=== PATIENT | male | born 1935 | race Caucasian/White ===

== ENCOUNTER 2024-03-11 09:58 | Inpatient (IN) ==
--- NOTE | 2024-03-11 10:40 | Emergency Department Note ---
Impression & Plan Pulmonary edema, Acute non-ST elevation myocardial infarction (NSTEMI), Atrial fibrillation with RVR ED Provider Note NAME: KHURRAM MERCHANT AGE: 88 SEX: M : 1935 ARRIVES VIA: Ambulance INFORMANT: Patient, ED PROVIDER(S): Tashi Lynn DO CHIEF COMPLAINT: Shortness of breath HPI: The patient is an 88-year-old male who presented to the emergency department for an evaluation of shortness of breath. The patient has been noticing shortness of breath and exertional shortness of breath. He is also noticed orthopnea. He noticed some swelling in his feet as well. The patient denies having any chest pain or fever. He denies having any productive cough. The patient has not been seen by his family doctor for the symptoms. He has no history of irregular heartbeat or congestive heart failure. ROS: See above HPI for pertinent positives & negatives. A total of 10 systems reviewed and were otherwise negative. PAST MEDICAL HISTORY: See Below PAST SURGICAL HISTORY: See Below FAMILY HISTORY: See Below SOCIAL HISTORY: See Below HOME MEDICATIONS: See Below ALLERGIES: See Below VITALS: See Below PHYSICAL EXAMINATION: GENERAL: Patient is awake alert in no acute distress patient is resting comfortably and showing no signs of anxiety EYES: The conjunctivae are clear. The pupils are round and reactive. EARS, NOSE, MOUTH AND THROAT: The nose is without any evidence of any deformity. NECK: The neck is nontender and supple. RESPIRATORY: Diminished breath sounds noted at both bases. There were rales at both lower lung lake. CARDIOVASCULAR: Irregular heart sounds were noted to auscultation. There is no definite murmur. GASTROINTESTINAL: The abdomen is soft. Abdomen is nontender. MUSCULOSKELETAL/EXTREMITIES: There is no evidence of gross deformity full range of motion is noted in the hips and shoulders. SKIN: Skin is warm and dry. Pedal edema was noted bilaterally. NEUROLOGIC: Patient is awake alert and oriented x3 MEDICAL DECISION MAKING: The patient is an 88-year-old male who presented to the emergency department for an evaluation of shortness of breath. The patient describes orthopnea as well as lower extremity swelling. The patient's history and physical exam would be consistent with pulmonary edema. The patient was found to be in atrial fibrillation which she states is a new finding for him. He had nonspecific ST segment abnormalities and elevated troponin. I would wonder if the patient is in pulmonary edema secondary to the dysrhythmia as well as the NSTEMI. I discussed the patient's laboratory and radiographic studies with him. I discussed his condition with the on-call [facility] Hospitalist. They have agreed to evaluate the patient in the emergency department for further management and disposition. The patient was treated with Lasix and aspirin in the emergency department. Triage Nursing notes reviewed. Prior medical records reviewed Vital Signs: reviewed and remarkable for no significant abnormalities Differential diagnosis: Reactive airway disease, pneumonia, pneumothorax, COPD, CHF, infections, cardiac ischemia, pulmonary embolism, musculoskeletal, gastrointestinal, as well as other pathologies. ER treatment provided: See below Diagnostics interpreted by me: ECG: EKG was obtained in the emergency department. My interpretation is atrial fibrillation at [address] depressions were noted in the inferior and lateral leads. No previous tracing was available. Cardiac Monitoring: An order was placed for continuous cardiac monitoring. The monitor shows a rate of 97 bpm with sinus rhythm. Laboratory studies: As stated above and show below. Imaging studies: See below. Radiographic imaging was reviewed by myself Consultation(s): I discussed this case with Dr. Encarnacion [facility] ED COURSE: Procedures: none Critical Care: I have personally spent greater than 35 minutes of critical care time in the direct management of this patient. This includes bedside care, interpretation of diagnostic studies, and testing, discussion with consultants, patient, and family members, and other required patient management activities. This 35 minutes is in excess of all separately billable procedures. 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) Medical History Pain and swelling of left knee Vision problem Surgical History S/P adenoidectomy 1944 S/P tonsillectomy 1944 Family History Father Cardiac disorder Hypertension Myocardial infarction, Onset Age: 69 Brother Cardiac disorder Hypertension Denies family history of Ovarian cancer Prostate cancer Breast cancer Lung cancer Colorectal cancer Social History Smoking Status: Former smoker Tobacco Type: Cigarettes and Cigars Hx Alcohol Use: No Hx Substance Use: No Preferred Language: Serbian Communication Ability: Effective Visual Impairment: No Limitations Hearing Ability: Hard of Hearing Beliefs That Will Affect Care: None marital status: / Current Living Situation: Alone current occupational status: retired Feels Safe at Home: Yes Childhood Exposure to Second-Hand Smoke: No Diet: regular Diet Comment: regular caffeine: Yes during the past year weight has: remained stable Dental Care, Regularly: Yes Physical Activity Frequency: Daily Physical Activity Frequency Comment: walk, outside work Seatbelt Use: always Sunscreen Use: No Allergies Allergies Allergy/AdvReac Type Severity Reaction Status Date / Time Penicillins AdvReac Hives Verified 03/11/24 12:32 Home Meds Home Medications Medication Instructions Recorded Confirmed mecobalamin (vitamin B12) 1,000 1,000 mcg PO DAILY 12/09/23 03/11/24 mcg chewable tablet sertraline 25 mg tablet 0 mg PO DAILY 03/11/24 03/11/24 telmisartan 20 mg tablet 0 mg PO DAILY 03/11/24 03/11/24 Previous Rx's Medication Instructions Recorded vitamin E (dl, acetate) 450 mg 1,000 units PO 3XWK #30 caps 01/12/20 (1,000 unit) capsule metoprolol tartrate 50 mg tablet 75 mg (1.5 x 50 mg) PO DAILY #135 01/27/24 tabs pantoprazole 40 mg tablet,delayed 40 mg PO DAILY #90 tabs 02/02/24 release terazosin 5 mg capsule 5 mg PO DAILY #90 caps 02/16/24 Results & Data (ED) Vital Signs Vital Signs - 24 hr 03/11/24 10:00 03/11/24 10:08 03/11/24 10:08 Temperature 36.8 C Temperature Source Oral Pulse Rate 108 H Pulse Rate [Apical] Respiratory Rate 19 Respiratory Effort / Characteristics Non-Labored Spontaneous Short of Breath Non-Labored Spontaneous Short of Breath Respiratory Depth Normal Normal Respiratory Pattern Regular Regular Blood Pressure 122/85 Blood Pressure [Right Arm] Blood Pressure Mean 97 Blood Pressure Mean [Right Arm] Blood Pressure Position Semi-fowlers Blood Pressure Position [Right Arm] Pulse Oximetry 94 Oxygen Delivery Method Room Air Room Air Room Air Sepsis Recent Fever Within 48 Hours No Sepsis New/Unexplained Change in Mental Status No Sepsis Action Taken by Nursing No Action Required 03/11/24 10:08 03/11/24 10:18 03/11/24 10:41 Temperature Temperature Source Pulse Rate 108 H 119 H Pulse Rate [Apical] 106 H Respiratory Rate 18 24 Respiratory Effort / Characteristics Non-Labored Spontaneous Short of Breath Respiratory Depth Normal Respiratory Pattern Regular Blood Pressure Blood Pressure [Right Arm] Blood Pressure Mean Blood Pressure Mean [Right Arm] Blood Pressure Position Blood Pressure Position [Right Arm] Pulse Oximetry 91 Oxygen Delivery Method Room Air Room Air Sepsis Recent Fever Within 48 Hours Sepsis New/Unexplained Change in Mental Status Sepsis Action Taken by Nursing 03/11/24 12:04 Temperature Temperature Source Pulse Rate Pulse Rate [Apical] 97 H Respiratory Rate 20 Respiratory Effort / Characteristics Non-Labored Short of Breath Respiratory Depth Normal Respiratory Pattern Regular Blood Pressure Blood Pressure [Right Arm] 120/85 Blood Pressure Mean Blood Pressure Mean [Right Arm] 96 Blood Pressure Position Blood Pressure Position [Right Arm] Semi-fowlers Pulse Oximetry 92 Oxygen Delivery Method Room Air Sepsis Recent Fever Within 48 Hours Sepsis New/Unexplained Change in Mental Status Sepsis Action Taken by Snf Medications Current Medication List: was personally reviewed by me Laboratory Data Attestation: I reviewed the patient's lab results. 03/11/24 10:08 03/11/24 10:08 Lab Results 03/11/24 03/11/24 03/11/24 Range/Units 10:08 10:32 10:38 WBC 12.03 H (4.8-10.8) K/ul RBC 3.65 L (4.70-6.10) M/uL Hgb 11.7 L (14.0-18.0) g/dl Hct 35.7 L (42.0-52.0) % MCV 97.8 (80.0-100.0) fL MCH 32.1 (25.0-34.0) pg MCHC 32.8 (32.0-36.0) g/dL RDW Std Deviation 47.2 H (36.4-46.3) fL RDW Coeff of Kahlil 13.2 (11.5-14.5) % Plt Count 177 (130-400) K/uL MPV 11.8 (9.4-12.4) fL Immature Gran % (Auto) 0.6 % Neut % (Auto) 77.5 % Lymph % (Auto) 11.1 % Menard % (Auto) 9.5 % Eos % (Auto) 0.6 % Baso % (Auto) 0.7 % Neut # (Auto) 9.32 H (1.40-6.50) K/uL Lymph # (Auto) 1.34 (1.20-3.40) K/uL Menard # (Auto) 1.14 H (0.11-0.59) K/uL Eos # (Auto) 0.07 (0.00-0.50) K/uL Baso # (Auto) 0.09 (0.00-0.20) K/uL Immature Gran # (Auto) 0.07 (0.01-0.20) K/uL PT 12.3 H (9.0-12.0) Seconds INR 1.1 (0.9-1.1) APTT 30 (21-31) Seconds PTT Ratio 1.1 Sodium 134 L (136-145) mmol/L Potassium 4.2 (3.5-5.1) mmol/L Chloride 104 (98-107) mmol/L Carbon Dioxide 21 (21-32) mmol/L Anion Gap 9 (3-11) BUN 28 H (6-23) mg/dl Creatinine 1.71 H (0.6-1.4) mg/dl Est Cr Clr Drug Dosing 34.9 ml/min Est GFR ( Amer) 40.8 ml/min Est GFR (Non-Af Amer) 35.2 ml/min BUN/Creatinine Ratio 16.4 (10-20) Glucose 147 H (70-99(Fasting)) mg/dl Calcium 8.7 (8.6-10.3) mg/dl Magnesium 1.9 (1.7-2.4) mg/dl Total Bilirubin 0.8 (0.2-1.0) mg/dl AST 16 (13-39) U/L ALT 10 (7-52) U/L Alkaline Phosphatase 53 (34-104) U/L Troponin I High Sens 806.2 H* (0-20) pg/ml B-Natriuretic Peptide 827 H (0-100) pg/ml Total Protein 6.7 (6.0-8.3) gm/dl Albumin 3.4 (3.4-5.0) gm/dl Globulin 3.3 (2.5-4.0) gm/dl Albumin/Globulin Ratio 1.0 (0.9-2) TSH 2.766 (0.300-4.500) uIu/ml Urine Color Yellow Urine Appearance Clear (Clear) Urine pH 5.0 (4.5-7.5) Ur Specific [place] 1.019 (1.000-1.030) Urine Protein Trace H (Negative) Urine Glucose (UA) Negative (Negative) Urine Ketones Trace H (Negative) Urine Blood Negative (Negative) Urine Nitrite Negative (Negative) Urine Bilirubin Negative (Negative) Urine Urobilinogen Negative (Negative) Ur Leukocyte Esterase Trace H (Negative) Urine WBC (Auto) 0-5 (0-5) /hpf Urine RBC (Auto) 0-2 (0-2) /hpf U Hyaline Cast (Auto) 0-2 (0-2) /lpf U Epithel Cells (Auto) 0-2 (0-2) /hpf Urine Bacteria (Auto) None Seen (None Seen) SARS-CoV-2 (PCR) NEGATIVE (Negative) 03/11/24 Range/Units 12:35 WBC (4.8-10.8) K/ul RBC (4.70-6.10) M/uL Hgb (14.0-18.0) g/dl Hct (42.0-52.0) % MCV (80.0-100.0) fL MCH (25.0-34.0) pg MCHC (32.0-36.0) g/dL RDW Std Deviation (36.4-46.3) fL RDW Coeff of Kahlil (11.5-14.5) % Plt Count (130-400) K/uL MPV (9.4-12.4) fL Immature Gran % (Auto) % Neut % (Auto) % Lymph % (Auto) % Menard % (Auto) % Eos % (Auto) % Baso % (Auto) % Neut # (Auto) (1.40-6.50) K/uL Lymph # (Auto) (1.20-3.40) K/uL [place]ard # (Auto) (0.11-0.59) K/uL Eos # (Auto) (0.00-0.50) K/uL Baso # (Auto) (0.00-0.20) K/uL Immature Gran # (Auto) (0.01-0.20) K/uL PT (9.0-12.0) Seconds INR (0.9-1.1) APTT (21-31) Seconds PTT Ratio Sodium (136-145) mmol/L Potassium (3.5-5.1) mmol/L Chloride (98-107) mmol/L Carbon Dioxide (21-32) mmol/L Anion Gap (3-11) BUN (6-23) mg/dl Creatinine (0.6-1.4) mg/dl Est Cr Clr Drug Dosing ml/min Est GFR ( Amer) ml/min Est GFR (Non-Af Amer) ml/min BUN/Creatinine Ratio (10-20) Glucose (70-99(Fasting)) mg/dl Calcium (8.6-10.3) mg/dl Magnesium (1.7-2.4) mg/dl Total Bilirubin (0.2-1.0) mg/dl AST (13-39) U/L ALT (7-52) U/L Alkaline Phosphatase (34-104) U/L Troponin I High Sens 770.2 H* (0-20) pg/ml B-Natriuretic Peptide (0-100) pg/ml Total Protein (6.0-8.3) gm/dl Albumin (3.4-5.0) gm/dl Globulin (2.5-4.0) gm/dl Albumin/Globulin Ratio (0.9-2) TSH (0.300-4.500) uIu/ml Urine Color Urine Appearance (Clear) Urine pH (4.5-7.5) Ur Specific [place] (1.000-1.030) Urine Protein (Negative) Urine Glucose (UA) (Negative) Urine Ketones (Negative) Urine Blood (Negative) Urine Nitrite (Negative) Urine Bilirubin (Negative) Urine Urobilinogen (Negative) Ur Leukocyte Esterase (Negative) Urine WBC (Auto) (0-5) /hpf Urine RBC (Auto) (0-2) /hpf U Hyaline Cast (Auto) (0-2) /lpf U Epithel Cells (Auto) (0-2) /hpf Urine Bacteria (Auto) (None Seen) SARS-CoV-2 (PCR) (Negative) Administered Medications Magnesium Sulfate/Dextrose (Magnesium Sulfate / D5w) 1 gm in 100 mls @ 100 mls/hr IV NOW STA Stop: 03/11/24 13:52 Last Admin: 03/11/24 13:34 Dose: 100 mls/hr Documented By: HALEIGH Discontinued Medications Aspirin (Aspirin Chew 324 Mg) 324 mg PO NOW STA Stop: 03/11/24 11:49 Last Admin: 03/11/24 12:11 Dose: 324 mg Documented By: HALEIGH Furosemide (Furosemide 40 Mg/4 Ml Vial) 40 mg IV ONE ONE Stop: 03/11/24 11:49 Last Admin: 03/11/24 12:11 Dose: 40 mg Documented By: HALEIGH Imaging Data Attestation: I personally reviewed and interpreted this imaging study as follows: My Impression: 1 view chest x-ray was obtained in the emergency department. My interpretation is pleural effusion with pulmonary edema, final report below. Radiologist's Impression: Chest X-Ray 03/11/24 10:29 XR chest 1V portable CLINICAL HISTORY: Dyspnea TECHNIQUE: Single frontal radiograph of the chest was obtained. Comparison: None available at the time of this dictation. FINDINGS: No lines and tubes are seen. Cardiac silhouette is partially obscured. Calcified aorta is seen. Right perihilar and right lower lung densities are seen. There is prominent pulmonary vasculature. Likely moderate right and possible small left pleural effusion. IMPRESSION: 1. Airspace opacities in the right perihilar and lower lungs. This may represent atelectasis, pneumonia, and/or aspiration. 2. Pulmonary vascular congestion. 3. Moderate right and small left pleural effusions. ACT 112: Negative or not required by law. Electronically signed by: Dave Sorto M.D. 03/11/2024 10:58 AM Discharge Plan Visit Data Chief Complaint: Shortness of Breath/Dyspnea Stated Complaint: SOB ED Provider: Tashi Lynn Discharge Problem: Pulmonary edema, Acute non-ST elevation myocardial infarction (NSTEMI), Atrial fibrillation with RVR Patient Disposition: Being Evaluated by Hospitalist Forms Stand Alone Forms: My [facility] Prescriptions Prescriptions: No Action metoprolol tartrate 50 mg tablet 75 mg PO DAILY Qty: 135 3RF Rx Instructions: TAKE 1/2 TAB in a.m. AND 1 TAB in p.m. pantoprazole 40 mg tablet,delayed release (DR/EC) 40 mg PO DAILY Qty: 90 1RF terazosin 5 mg capsule 5 mg PO DAILY Qty: 90 3RF vitamin E (dl, acetate) 1,000 unit capsule 1,000 units PO 3XWK Qty: 30 0RF Rx Instructions: Unable to verify OTC meds at this date/time. mecobalamin (vitamin B12) 1,000 mcg tablet,chewable 1,000 mcg PO DAILY Rx Instructions: Unable to verify OTC meds at this date/time. sertraline 25 mg tablet 0 mg PO DAILY Rx Instructions: Unable to verify w/ pt at this date/time. Last filled 12/2023 x30 day supply. Original Directions: 25mg by mouth once daily telmisartan 20 mg tablet 0 mg PO DAILY Rx Instructions: Unable to verify w/ pt at this date/time. Last filled 12/2023 x30 day supply. Original Directions: 20mg by mouth once daily Referrals Referrals: Gabino Weaver CRNP [Primary Care Provider] - Discharge Problem: Pulmonary edema Qualifiers: Chronicity: acute Qualified Code(s): J81.0 - Acute pulmonary edema
--- NOTE | 2024-03-11 10:59 | XRay Report ---
XR chest 1V portable CLINICAL HISTORY: Dyspnea TECHNIQUE: Single frontal radiograph of the chest was obtained. Comparison: None available at the time of this dictation. FINDINGS: No lines and tubes are seen. Cardiac silhouette is partially obscured. Calcified aorta is seen. Right perihilar and right lower lung densities are seen. There is prominent pulmonary vasculature. Likely moderate right and possible small left pleural effusion. IMPRESSION: 1. Airspace opacities in the right perihilar and lower lungs. This may represent atelectasis, pneumo ann, and/or aspiration. 2. Pulmonary vascular congestion. 3. Moderate right and small left pleural effusions. ACT 112: Negative or not required by law. Electronically signed by: Dave Sorto M.D. 03/11/2024 10:58 AM
[2024-03-11 11:01] LABS: Appearance Urine Clear (Clear); Bacteria Urine Automated None Seen (None Seen); Bilirubin Urine Negative (Negative); Blood Urine Negative (Negative); Cast Urine Automated 0-2 /lpf (0-2); Color Urine Yellow; Epithelial Cell Urine Auto 0-2 /hpf (0-2); Glucose Urine UA Negative (Negative); Ketones Urine Trace (Negative); Leukocyte Esterase Urine Trace (Negative); Nitrite Urine Negative (Negative); Protein Urine Trace (Negative); RBC Urine Automated 0-2 /hpf (0-2); Specific Gravity Urine 1.019 (1.000-1.030); Urobilinogen Urine Negative (Negative); WBC Urine Automated 0-5 /hpf (0-5)
[2024-03-11 11:12] LABS: Basophils # (auto) 0.09 K/uL (0.00-0.20); Basophils % (auto) 0.7 %; Eosinophils # (auto) 0.07 K/uL (0.00-0.50); Eosinophils % (auto) 0.6 %; Hematocrit (blood only) 35.7 % (42.0-52.0); Hemoglobin 11.7 g/dl (14.0-18.0); Immature Granulocytes # (auto) 0.07 K/uL (0.01-0.20); Immature Granulocytes % (auto) 0.6 %; Lymphocytes # (auto) 1.34 K/uL (1.20-3.40); Lymphocytes % (auto) 11.1 %; Mean Corpuscular Hemoglobin 32.1 pg (25.0-34.0); Mean Corpuscular Hgb Conc 32.8 g/dL (32.0-36.0); Mean Corpuscular Volume 97.8 fL (80.0-100.0); Mean Platelet Volume 11.8 fL (9.4-12.4); Monocytes # (auto) 1.14 K/uL (0.11-0.59); Monocytes % (auto) 9.5 %; Neutrophils # (auto) 9.32 K/uL (1.40-6.50); Neutrophils % (auto) 77.5 %; Platelet Count 177 K/uL (130-400); RDW Coefficient of Variation 13.2 % (11.5-14.5); RDW Standard Deviation 47.2 fL (36.4-46.3); Red Blood Count 3.65 M/uL (4.70-6.10); White Blood Count 12.03 K/ul (4.8-10.8)
[2024-03-11 11:31] LABS: Albumin Level 3.4 gm/dl (3.4-5.0); BUN Creatinine Ratio 16.4 (10-20); Bilirubin,Total 0.8 mg/dl (0.2-1.0); Calcium 8.7 mg/dl (8.6-10.3); Creatinine Clr Calc Pharmacy 34.9 ml/min; Est GFR (African American) 40.8 ml/min; Est GFR (Non-African American) 35.2 ml/min; Globulin 3.3 gm/dl (2.5-4.0); Magnesium 1.9 mg/dl (1.7-2.4); Potassium 4.2 mmol/L (3.5-5.1); Total Protein 6.7 gm/dl (6.0-8.3)
[2024-03-11 11:41] LABS: Troponin I High Sensitivity 806.2 pg/ml (0-20)
[2024-03-11 11:43] LABS: INR 1.1 (0.9-1.1); Partial Thromboplastin Ratio 1.1; Partial Thromboplastin Time 30 Seconds (21-31); Prothrombin Time 12.3 Seconds (9.0-12.0)
[2024-03-11 11:46] LABS: Thyroid Stimulating Hormone 2.766 uIu/ml (0.300-4.500)
[2024-03-11] MEDS: ASPIRIN CHEW 324 MG PO STA (12:11)
[2024-03-11] MEDS: FUROSEMIDE 40 MG/4 ML VIAL IV ONE (12:11)
--- NOTE | 2024-03-11 12:13 | History & Physical Report ---
Date of Service March 11, 2024 Assessment & Plan (1) Atrial fibrillation with RVR: Plan: New onset Increase metoprolol tatrate to 100mg PO BID with goal of switching to succinate once rate better controlled TSH WNL Aim K > 4, Mg > 2 TTE Anticoagulation with IV heparin low dose with bolus in case of need for cardiac catheterization (2) Acute heart failure: Plan: with unknown ejection fraction TTE ordered Lasix 40mg IV daily Strict I&Os Daily weight Fluid restricted diet (3) BPH with obstruction/lower urinary tract symptoms: Plan: PVR 82ml on bladder scan Continue terazosin (4) HTN (hypertension): Plan: Continue telmisartan and metoprolol Monitor BP with addition of Lasix (5) Anxiety and depression: Plan: Continue sertraline Plan VTE Prophyalxis - IV heparin Diet - low Na, heart healthy, fluid restricted Disposition - admit to PCU Admission and Anticipated Discharge Date Admission Date: March 11, 2024 History of Present Illness Chief Complaint: Shortness of breath Primary Care Provider: FLORI Pérez Richy Ramirez is an 88 year old male who presents to the ER with shortness of breath, dizziness and orthopnea. Symptoms started 2 weeks ago when trying to take care of yard work and he got into house. Took BP and it was fine but noticed his pulse was around 122, taken due to feeling more tired than usual. Last couple of days symptoms have been much worse. Each day dizziness (lightheadedness) and tiredness lasting longer. No chest pain, abdominal pain, no constipation or diarrhea. No nausea, vomiting, sore throat, nasal congestion, fever, chills or urinary symptoms. Last week cough (no productive). No choking or coughing after eating. Appetite and sleeping problem last couple of days. Nothing taste good. Took all his normal medications this morning. Allergies Allergy/AdvReac Type Severity Reaction Status Date / Time Penicillins AdvReac Hives Verified 03/11/24 12:32 Home Medications Medication Instructions Recorded Confirmed Type vitamin E (dl, acetate) 450 mg 1,000 units PO 3XWK #30 caps 01/12/20 03/11/24 Rx (1,000 unit) capsule mecobalamin (vitamin B12) 1,000 1,000 mcg PO DAILY 12/09/23 03/11/24 History mcg chewable tablet metoprolol tartrate 50 mg tablet 75 mg (1.5 x 50 mg) PO DAILY #135 01/27/24 03/11/24 Rx tabs pantoprazole 40 mg tablet,delayed 40 mg PO DAILY #90 tabs 02/02/24 03/11/24 Rx release terazosin 5 mg capsule 5 mg PO DAILY #90 caps 02/16/24 03/11/24 Rx sertraline 25 mg tablet 0 mg PO DAILY 03/11/24 03/11/24 History telmisartan 20 mg tablet 0 mg PO DAILY 03/11/24 03/11/24 History 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) Medical History Pain and swelling of left knee Vision problem Surgical History S/P adenoidectomy 1944 S/P tonsillectomy 1944 Family History Father Cardiac disorder Hypertension Myocardial infarction, Onset Age: 69 Brother Cardiac disorder Hypertension Denies family history of Ovarian cancer Prostate cancer Breast cancer Lung cancer Colorectal cancer Social History Smoking Status: Former smoker Tobacco Type: Cigarettes and Cigars Smoking End Date: 2007; Second Hand Exposure: No; Do You Dip or Chew Tobacco: No; Tobacco Cessation Education Requested by Patient: No Hx Alcohol Use: No Hx Substance Use: No Preferred Language: Yi Communication Ability: Effective Visual Impairment: No Limitations Hearing Ability: Hard of Hearing Tyre Retreader Required: No Beliefs That Will Affect Care: None marital status: / Current Living Situation: Alone Current Living Situation Comment: Private Home Alone current occupational status: retired Other Information That Helps Us Care for You: No Feels Safe at Home: Yes Safety Concerns: Feels Safe At This Time Childhood Exposure to Second-Hand Smoke: No Diet: regular Diet Comment: regular caffeine: Yes during the past year weight has: remained stable Dental Care, Regularly: Yes Physical Activity Frequency: Daily Physical Activity Frequency Comment: walk, outside work Seatbelt Use: always Sunscreen Use: No Assistive Devices: Glasses and Hearing Aid - Left Review of Systems Review of Systems: All systems reviewed & are unremarkable except as noted in HPI & below Physical Exam Constitutional: WD/WN, vitals as above ENMT: external ear and nose normal, oropharynx normal Respiratory: normal respiratory effort; no respiratory distress Auscultation: + crackles (bibasal); breath sounds present, no diminished lung sounds, no rales, no rhonchi and no wheezes Cardiovascular: Rate/Rhythm: + tachycardic and + irregularly irregular Heart Sounds: no murmur Extremities: normal capillary refill and + pedal edema; no calf tenderness Gastrointestinal (Abdomen): normal bowel sounds, soft, nontender, no hepatosplenomegaly Musculoskeletal: no cyanosis or clubbing, extremities motor strength 5/5 Skin: no rashes, warm and dry Neurologic: moves all extremities and awake; not confused Psychiatric: A+Ox3, euthymic affect Results & Data Results & Data Vital Signs (Past 12 Hours) Vital Signs Temp Pulse Pulse Resp BP BP Pulse Ox 03/11/24 12:04 97 H 20 120/85 92 03/11/24 10:41 119 H 24 91 03/11/24 10:18 108 H 03/11/24 10:08 106 H 18 03/11/24 10:08 03/11/24 10:08 03/11/24 10:00 36.8 C 108 H 19 122/85 94 O2 Del Method 03/11/24 12:04 Room Air 03/11/24 10:41 Room Air 03/11/24 10:18 03/11/24 10:08 Room Air 03/11/24 10:08 Room Air 03/11/24 10:08 Room Air 03/11/24 10:00 Room Air Laboratory Results Abnormal lab results 06/13/24 06/13/24 Range/Units 10:08 10:38 WBC 12.03 H (4.8-10.8) K/ul RBC 3.65 L (4.70-6.10) M/uL Hgb 11.7 L (14.0-18.0) g/dl Hct 35.7 L (42.0-52.0) % RDW Std Deviation 47.2 H (36.4-46.3) fL Neut # (Auto) 9.32 H (1.40-6.50) K/uL Hutchinson # (Auto) 1.14 H (0.11-0.59) K/uL PT 12.3 H (9.0-12.0) Seconds Sodium 134 L (136-145) mmol/L BUN 28 H (6-23) mg/dl Creatinine 1.71 H (0.6-1.4) mg/dl Glucose 147 H (70-99(Fasting)) mg/dl Troponin I High Sens 806.2 H* (0-20) pg/ml B-Natriuretic Peptide 827 H (0-100) pg/ml Urine Protein Trace H (Negative) Urine Ketones Trace H (Negative) Ur Leukocyte Esterase Trace H (Negative) Diagnostic Findings XR chest 1V portable CLINICAL HISTORY: Dyspnea TECHNIQUE: Single frontal radiograph of the chest was obtained. Comparison: None available at the time of this dictation. FINDINGS: No lines and tubes are seen. Cardiac silhouette is partially obscured. Calcified aorta is seen. Right perihilar and right lower lung densities are seen. There is prominent pulmonary vasculature. Likely moderate right and possible small left pleural effusion. IMPRESSION: 1. Airspace opacities in the right perihilar and lower lungs. This may represent atelectasis, pneumonia, and/or aspiration. 2. Pulmonary vascular congestion. 3. Moderate right and small left pleural effusions. Medications Administered ER Medications Given: Aspirin 324mg PO Furosemide 40mg IV ECG Rate (beats per minute): 116 Rhythm: atrial fibrillation Findings: + nonspecific-ST abn Comparison ECG Date: no prior available Code Status & VTE Plan Code Status Full VTE Prophylaxis Plan VTE Prophylaxis will be ordered: Yes PG Care Time/CCT Total # of Minutes Spent Total Time Spent with Patient: Total time spent is greater than 50% in coordination of care (as documented) at patient's floor/unit and/or counseling patient: Coding Level of Care Code 03756 INT INP/OBS CARE MIN Diagnoses Atrial fibrillation with RVR I48.91 Acute heart failure I50.9 BPH with obstruction/lower urinary tract symptoms N40.1; N13.8 HTN (hypertension) I10 Anxiety and depression F41.9; F32.A
[2024-03-11] MEDS ORDERED: Heparin IV Adult Wt-Based Low-Dose w/ INITIAL Bolus Protocol IV STA (12:50)
[2024-03-11] MEDS ORDERED: HEPARIN SOD (PORCINE) 1000 UNIT/ML IV ONE (13:05)
[2024-03-11] MEDS ORDERED: HEPARIN SODIUM/DEXTROSE 25,000 UNITS/500 ML BAG IV SCH (13:15)
[2024-03-11] MEDS: MAGNESIUM SULFATE / D5W 1 GM/100 ML BAG IV STA (13:34)
[2024-03-11] MEDS: HEPARIN SOD (PORCINE) 1000 UNIT/ML IV ONE (14:18)
[2024-03-11] MEDS: HEPARIN SODIUM/DEXTROSE 25,000 UNITS/500 ML BAG IV SCH (14:19)
[2024-03-11] MEDS: Heparin IV Adult Wt-Based Low-Dose w/ INITIAL Bolus Protocol IV STA (14:19)
[2024-03-11] MEDS ORDERED: ACETAMINOPHEN 325 MG TAB PO PRN (14:28)
[2024-03-11 15:13] LABS: Influenza A virus by PCR Negative (Neg); Influenza B virus by PCR Negative (Neg); RSV by PCR Negative (Neg); SARS CoV2 RNA(COVID-19) Ceph NEGATIVE (Negative)
--- NOTE | 2024-03-11 17:44 | Electrocardiogram Report ---
Test Reason : Blood Pressure : / mmHG Vent. Rate : 116 BPM Atrial Rate : 000 BPM P-R Int : 000 ms QRS Dur : 096 ms QT Int : 276 ms P-R-T Axes : 000 -09 124 degrees QTc Int : 383 ms Sinus rhythm with frequent and consecutive atrial ectopy Low voltage QRS Nonspecific ST and T wave abnormality Abnormal ECG No previous ECGs available Reconfirmed by Elijah Guaman ([id number]) on 03/13/2024 5:58:05 PM Referred By: Gabino Weaver Confirmed By:Carl Guaman
--- NOTE | 2024-03-11 18:04 | XCELERA ---
[id number]
[2024-03-11 21:07] LABS: ANTI-Xa, UFH(UnfractionatedHep 0.21 IU/ml (0.3-0.7)
[2024-03-12 03:12] LABS: Basophils # (auto) 0.09 K/uL (0.00-0.20); Basophils % (auto) 0.9 %; Eosinophils # (auto) 0.26 K/uL (0.00-0.50); Eosinophils % (auto) 2.5 %; Hematocrit (blood only) 34.6 % (42.0-52.0); Hemoglobin 11.5 g/dl (14.0-18.0); Immature Granulocytes # (auto) 0.05 K/uL (0.01-0.20); Immature Granulocytes % (auto) 0.5 %; Lymphocytes % (auto) 15.2 %; Mean Corpuscular Hemoglobin 32.1 pg (25.0-34.0); Mean Corpuscular Hgb Conc 33.2 g/dL (32.0-36.0); Mean Corpuscular Volume 96.6 fL (80.0-100.0); Mean Platelet Volume 11.7 fL (9.4-12.4); Monocytes % (auto) 9.5 %; Neutrophils # (auto) 7.53 K/uL (1.40-6.50); Neutrophils % (auto) 71.4 %; Platelet Count 172 K/uL (130-400); RDW Coefficient of Variation 13.2 % (11.5-14.5); RDW Standard Deviation 46.6 fL (36.4-46.3); Red Blood Count 3.58 M/uL (4.70-6.10); White Blood Count 10.53 K/ul (4.8-10.8)
[2024-03-12 03:23] LABS: BUN Creatinine Ratio 16.8 (10-20); Calcium 8.6 mg/dl (8.6-10.3); Chol HDL Ratio 2.9 (0-5); Creatinine Clr Calc Pharmacy 31.4 ml/min; Est GFR (African American) 37.4 ml/min; Est GFR (Non-African American) 32.2 ml/min; Potassium 4.1 mmol/L (3.5-5.1)
[2024-03-12 03:33] LABS: ANTI-Xa, UFH(UnfractionatedHep 0.22 IU/ml (0.3-0.7)
[2024-03-12 07:01] LABS: Estimated Average Glucose 128 mg/dl; Hemoglobin A1C 6.1 % (4.5-5.6)
[2024-03-12] MEDS ORDERED: METOPROLOL TARTRATE 100 MG TAB PO SCH (09:00)
[2024-03-12] MEDS: PANTOprazole 40 MG TAB PO SCH (09:01)
[2024-03-12] MEDS: CYANOCOBALAMIN (B-12) 500 MCG TABLET PO SCH (09:01)
[2024-03-12] MEDS: METOPROLOL SUCC 50MG EXT REL TAB PO SCH (09:01)
[2024-03-12] MEDS: TERAZOSIN HCL 5 MG CAP PO SCH (09:02)
[2024-03-12] MEDS: LOSARTAN POTASSIUM 25 MG TAB PO SCH (09:02)
[2024-03-12] MEDS: SERTRALINE HCL 50 MG TABLET PO SCH (09:02)
[2024-03-12] MEDS: FUROSEMIDE 40 MG/4 ML VIAL IV SCH (09:17)
[2024-03-12] MEDS: ASPIRIN 81 MG ECTAB PO SCH (09:17)
[2024-03-12 10:29] LABS: ANTI-Xa, UFH(UnfractionatedHep 0.25 IU/ml (0.3-0.7)
--- NOTE | 2024-03-12 13:54 | Hospitalist Progress Note ---
Date of Service March 12, 2024 Assessment & Plan (1) Atrial fibrillation with RVR: Plan: New onset Increase metoprolol tatrate to 100mg PO BID with goal of switching to succinate once rate better controlled TSH WNL Aim K > 4, Mg > 2 TTE Anticoagulation with IV heparin low dose with bolus in case of need for cardiac catheterization (2) Acute heart failure: Plan: with unknown ejection fraction TTE ordered Lasix 20 mg IV daily Strict I&Os Daily weight Fluid restricted diet (3) BPH with obstruction/lower urinary tract symptoms: Plan: PVR 82ml on bladder scan Continue terazosin (4) HTN (hypertension): Plan: Continue telmisartan and metoprolol Monitor BP with addition of Lasix (5) Anxiety and depression: Plan: Continue sertraline Plan VTE Prophyalxis - IV heparin Diet - low Na, heart healthy, fluid restricted Disposition - admit to PCU Admission and Anticipated Discharge Date Admission Date: March 11, 2024 Subjective reports feeling better, no chest pain, card cath cancelled Review of Systems Review of Systems: All systems reviewed & are unremarkable except as noted in Subjective Physical Exam Physical Exam: head atraumatic neck supple chest decreased breath sounds b/l heart irregularly irregular abdomen soft, nt, nd, bs present extremities swelling pedal edema Results & Data Results & Data Vital Signs (Past 12 Hours) Vital Signs Temp Pulse Pulse Resp BP Pulse Ox O2 Del Method 03/12/24 12:04 36.6 C 66 18 100/66 94 Room Air 03/12/24 10:45 121/66 03/12/24 09:17 79 03/12/24 09:17 Room Air 03/12/24 07:50 36.5 C 87 22 120/80 92 Room Air 03/12/24 02:51 36.6 C 97 H 18 119/79 93 Room Air PG Care Time/CCT Total # of Minutes Spent Total Time Spent with Patient: Total time spent is greater than 50% in coordination of care (as documented) at patient's floor/unit and/or counseling patient: Coding Level of Care Code 59505 SUB INP/OBS CARE 2/35MIN Diagnoses Atrial fibrillation with RVR I48.91 Acute heart failure I50.9 BPH with obstruction/lower urinary tract symptoms N40.1; N13.8 HTN (hypertension) I10 Anxiety and depression F41.9; F32.A
[2024-03-12] MEDS: ONDANSETRON INJ 2 MG/ML 2 ML VIAL IV PRN (15:15)
[2024-03-12] MEDS: LOPERAMIDE HCL 2 MG CAP PO STA (15:15)
[2024-03-12] MEDS ORDERED: CALCIUM CARBONATE 500 MG CHEWABLE TAB PO PRN (15:27)
--- NOTE | 2024-03-12 17:13 | Electrocardiogram Report ---
Test Reason : Blood Pressure : / mmHG Vent. Rate : 091 BPM Atrial Rate : 250 BPM P-R Int : 000 ms QRS Dur : 086 ms QT Int : 358 ms P-R-T Axes : 000 -31 113 degrees QTc Int : 440 ms Atrial fibrillation with a competing junctional pacemaker Left axis deviation Low voltage QRS Abnormal ECG Confirmed by Elijah Guaman ([id number]) on 03/12/2024 5:12:41 PM Referred By: Gabino Weaver Confirmed By:Carl Guaman
[2024-03-12 18:02] LABS: ANTI-Xa, UFH(UnfractionatedHep 0.29 IU/ml (0.3-0.7)
--- NOTE | 2024-03-12 19:56 | Cardiology Consultation ---
Date of Consultation March 12, 2024 Assessment & Plan (1) Acute heart failure: (2) Acute non-ST elevation myocardial infarction (NSTEMI): (3) Supraventricular tachycardia: (4) Elevated troponin: Plan 1. Supraventricular tachycardia: On initial evaluation it appeared that he did have atrial fibrillation, but serial EKGs and review of his telemetry would suggest otherwise. He does appear to have concerted atrial activity both on EKG and echocardiography. As such, the rhythm is not likely atrial fibrillation. It appears to be sinus with frequent atrial ectopy. He is certainly at risk for atrial fibrillation given his age and cardiac disease. Will need to monitor him closely for change in rhythm and rate. At this point I would discontinue systemic anticoagulation. Continuation metoprolol at a higher dose still seems like a good idea for rate control. 2. Heart failure with reduced ejection fraction: He appears have element of decompensated heart failure related to a cardiomyopathy. Currently affecting a diuresis. Furosemide dose reduced today. Hopefully his renal function will improve and have an opportunity to intensify his medical therapy. Currently on metoprolol succinate. I would like to add Entresto. We should also add an SG LT 2 inhibitor and possibly spironolactone. We will wait to see what his renal function does in the morning. 3. Cardiomyopathy: Unknown etiology. Very likely ischemic given his demographic. Although, he did not have symptoms of ischemic heart disease leading up to his admission. Markedly elevated biomarkers but not acute rise and fall. I suppose it is possible were seeing the tail end an ischemic event, but this would have been a fairly severe event given the level of LV dysfunction. 4. Elevated troponin: Most likely related to ischemia. However, I suppose there is a possibility this represents a myocarditis. He did have some diffuse symptoms but was not severely ill leading up to his admission. Currently he seems to be feeling well on the biomarkers have remained elevated. Perhaps a recent ischemic event. At this point I think we will continue his current dose of metoprolol succinate and diuretic. If the renal function improves will intensify his medical therapy for cardiomyopathy. I will discontinue his heparin as I do not believe he has atrial fibrillation. I think would be keita to keep him in the hospital anticipation of coronary angiography on Friday provided the renal function improves. History of Present Illness Reason for Consultation: Tachycardia, dyspnea, heart failure Requesting Physician: Alysha Attending Physician: Anika Palomares MD History of Present Illness The patient is an 88-year-old gentleman without a known history of cardiac disease who reports developing some symptoms approximately 2 weeks ago today. Stated on that day he was performing his usual activity outdoors gathering cones from his yd when he noticed himself becoming quite fatigued. He had difficulty doing his usual level of activity as he was quite tired. He noticed that his heart rate was quite high that day. He contacted a friend who told him to simply rest and that the high heart rate was likely related to a change in the weather. Over the next several days his symptoms waxed and waned in severity. He noticed that his heart rate also pawel and fell over the course of that time. Blood pressure was good. He did have some symptoms of dyspnea at times. He did not endorse symptoms of dizziness or lightheadedness. He did not have symptoms of chest discomfort. Occasionally he would have some nausea. He also did noticed a decreased appetite. He did not report fevers or chills. No noticeable lower extremity edema. Based on the persistent nature of the high heart rate he felt like he should have an evaluation and he came to the emergency room at that time. Allergies Allergy/AdvReac Type Severity Reaction Status Date / Time Penicillins AdvReac Hives Verified 03/11/24 12:32 Home Medications Medication Instructions Recorded Confirmed Type vitamin E (dl, acetate) 450 mg 1,000 units PO 3XWK #30 caps 01/12/20 03/11/24 Rx (1,000 unit) capsule mecobalamin (vitamin B12) 1,000 1,000 mcg PO DAILY 12/09/23 03/11/24 History mcg chewable tablet metoprolol tartrate 50 mg tablet 75 mg (1.5 x 50 mg) PO DAILY #135 01/27/24 03/11/24 Rx tabs pantoprazole 40 mg tablet,delayed 40 mg PO DAILY #90 tabs 02/02/24 03/11/24 Rx release terazosin 5 mg capsule 5 mg PO DAILY #90 caps 02/16/24 03/11/24 Rx sertraline 25 mg tablet 0 mg PO DAILY 03/11/24 03/11/24 History telmisartan 20 mg tablet 0 mg PO DAILY 03/11/24 03/11/24 History Patient History Medical History Pain and swelling of left knee Vision problem Surgical History S/P adenoidectomy 1944 S/P tonsillectomy 1944 Family History Father Cardiac disorder Hypertension Myocardial infarction, Onset Age: 69 Brother Cardiac disorder Hypertension Denies family history of Ovarian cancer Prostate cancer Breast cancer Lung cancer Colorectal cancer Social History Smoking Status: Former smoker Tobacco Type: Cigarettes and Cigars Smoking End Date: 2007; Second Hand Exposure: No; Do You Dip or Chew Tobacco: No; Tobacco Cessation Education Requested by Patient: No Hx Alcohol Use: No Hx Substance Use: No Preferred Language: Swazi Communication Ability: Effective Visual Impairment: No Limitations Hearing Ability: Hard of Hearing Balance Assembler Required: No Beliefs That Will Affect Care: None marital status: / Current Living Situation: Alone Current Living Situation Comment: Private Home Alone current occupational status: retired Other Information That Helps Us Care for You: No Feels Safe at Home: Yes Safety Concerns: Feels Safe At This Time Childhood Exposure to Second-Hand Smoke: No Diet: regular Diet Comment: regular caffeine: Yes during the past year weight has: remained stable Dental Care, Regularly: Yes Physical Activity Frequency: Daily Physical Activity Frequency Comment: walk, outside work Seatbelt Use: always Sunscreen Use: No Assistive Devices: None Review of Systems Review of Systems: Per HPI. Physical Exam Physical Exam: The patient is alert and oriented. Mood and affect appeared normal. He answered all questions appropriately. HEENT: Pupils are equal and reactive to light and accommodation. Extraocular movements are intact. The sclerae are anicteric. Neuro: Cranial nerves intact Lungs: Clear to auscultation bilaterally. He has good air movement without use of accessory muscles. No rales wheezes or rhonchi. Cardiac: Heart demonstrates an irregular rhythm. Normal S1 and S2. Holosystolic murmur of variable intensity. Pulses: The patient has palpable radial pulses bilaterally that are equal in intensity Extremities: There was no evidence of hypoperfusion. There is no cyanosis or clubbing. There is no edema. Skin: I did not appreciate any rashes on examination today. Results & Data Vital Signs (Past 12 Hours) Vital Signs Temp Pulse Pulse Resp BP Pulse Ox O2 Del Method 03/12/24 19:26 36.6 C 73 18 110/71 93 Room Air 03/12/24 16:00 95 Nasal Cannula 03/12/24 15:45 36.6 C 72 18 103/69 91 Room Air 03/12/24 15:35 86 03/12/24 12:04 36.6 C 66 18 100/66 94 Room Air 03/12/24 10:45 121/66 03/12/24 09:17 79 03/12/24 09:17 Room Air O2 Flow Rate 03/12/24 19:26 03/12/24 16:00 3 03/12/24 15:45 03/12/24 15:35 03/12/24 12:04 03/12/24 10:45 03/12/24 09:17 03/12/24 09:17 Laboratory Results Abnormal Lab Results 03/11/24 03/12/24 03/12/24 20:31 02:50 05:29 WBC 10.53 RBC 3.58 L Hgb 11.5 L Hct 34.6 L MCV 96.6 MCH 32.1 MCHC 33.2 RDW Std Deviation 46.6 H RDW Coeff of Kahlil 13.2 Plt Count 172 MPV 11.7 Immature Gran % (Auto) 0.5 Neut % (Auto) 71.4 Lymph % (Auto) 15.2 Dodge % (Auto) 9.5 Eos % (Auto) 2.5 Baso % (Auto) 0.9 Neut # (Auto) 7.53 H Lymph # (Auto) 1.60 Dodge # (Auto) 1.00 H Eos # (Auto) 0.26 Baso # (Auto) 0.09 Immature Gran # (Auto) 0.05 Heparin Anti-Xa, Unfract 0.21 L 0.22 L Sodium 134 L Potassium 4.1 Chloride 104 Carbon Dioxide 22 Anion Gap 8 BUN 31 H Creatinine 1.84 H Est Cr Clr Drug Dosing 31.4 Est GFR ( Amer) 37.4 Est GFR (Non-Af Amer) 32.2 BUN/Creatinine Ratio 16.8 Glucose 114 H Estimat Average Glucose 128 Hemoglobin A1c 6.1 H Calcium 8.6 Magnesium 2.0 Troponin I High Sens 1097.3 H* D 992.5 H* Triglycerides 82 Cholesterol 117 LDL Cholesterol, Calc 60 VLDL Cholesterol, Calc 16 HDL Cholesterol 41 Cholesterol/HDL Ratio 2.9 03/12/24 03/12/24 03/12/24 09:51 12:14 17:07 WBC RBC Hgb Hct MCV MCH MCHC RDW Std Deviation RDW Coeff of Kahlil Plt Count MPV Immature Gran % (Auto) Neut % (Auto) Lymph % (Auto) Dodge % (Auto) Eos % (Auto) Baso % (Auto) Neut # (Auto) Lymph # (Auto) Dodge # (Auto) Eos # (Auto) Baso # (Auto) Immature Gran # (Auto) Heparin Anti-Xa, Unfract 0.25 L 0.29 L Sodium Potassium Chloride Carbon Dioxide Anion Gap BUN Creatinine Est Cr Clr Drug Dosing Est GFR ( Amer) Est GFR (Non-Af Amer) BUN/Creatinine Ratio Glucose Estimat Average Glucose Hemoglobin A1c Calcium Magnesium Troponin I High Sens 835.5 H* Triglycerides Cholesterol LDL Cholesterol, Calc VLDL Cholesterol, Calc HDL Cholesterol Cholesterol/HDL Ratio Diagnostic Findings Echocardiogram 03/11/2024: Severely reduced LV systolic function with ejection fraction of 20 25%. Mild LVH. Akinesis of the apex with severe hypokinesis involving the basal segments. Mild aortic regurgitation. Moderate to severe mitral regurgitation. Chest x-ray obtained the time admission suggested pulmonary vascular congestion and moderate right and small left pleural effusions. PG Care Time/CCT Total # of Minutes Spent Total Time Spent with Patient: Total time spent is greater than 50% in coordination of care (as documented) at patient's floor/unit and/or counseling patient: Coding Level of Care Code 88316 INT INP/OBS CARE 3/75MIN Diagnoses Acute heart failure I50.9 Acute non-ST elevation myocardial infarction (NSTEMI) I21.4 Supraventricular tachycardia I47.10 Elevated troponin R79.89
--- NOTE | 2024-03-12 20:48 | Electrocardiogram Report ---
Test Reason : Blood Pressure : / mmHG Vent. Rate : 107 BPM Atrial Rate : 000 BPM P-R Int : 000 ms QRS Dur : 100 ms QT Int : 290 ms P-R-T Axes : 000 -29 102 degrees QTc Int : 387 ms Sinus rhythm with frequent and consecutive atrial ectopy Low voltage QRS Nonspecific ST and T wave abnormality Abnormal ECG Confirmed by Elijah Guaman ([id number]) on 03/12/2024 8:47:34 PM Referred By: Gabino Weaver Confirmed By:Carl Guaman
--- NOTE | 2024-03-12 20:49 | Electrocardiogram Report ---
Test Reason : Blood Pressure : / mmHG Vent. Rate : 086 BPM Atrial Rate : 078 BPM P-R Int : 000 ms QRS Dur : 092 ms QT Int : 402 ms P-R-T Axes : 000 -03 158 degrees QTc Int : 481 ms Sinus rhythm with frequent and consecutive atrial ectopy Low voltage QRS T wave abnormality, consider lateral ischemia Abnormal ECG Confirmed by Elijah Guaman ([id number]) on 03/12/2024 8:48:30 PM Referred By: Gabino Weaver Confirmed By:Carl Guaman
[2024-03-13 07:05] LABS: BUN Creatinine Ratio 16.9 (10-20); Calcium 8.6 mg/dl (8.6-10.3); Creatinine Clr Calc Pharmacy 32.6 ml/min; Est GFR (African American) 39.2 ml/min; Est GFR (Non-African American) 33.8 ml/min; Potassium 4.4 mmol/L (3.5-5.1)
[2024-03-13] MEDS: FUROSEMIDE INJ 20 MG/2 ML VIAL IV SCH (08:20)
--- NOTE | 2024-03-13 13:22 | Hospitalist Progress Note ---
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: Plan: PVR 82ml on bladder scan Continue terazosin (3) HTN (hypertension): Plan: Continue metoprolol Monitor BP with addition of Lasix (4) Anxiety and depression: Plan: Continue sertraline (5) Acute systolic (congestive) heart failure: Plan: patient has acute severely reduced left ventricle function card cath on Friday no evidence of Afib , IV Heparin stopped (6) Supraventricular tachycardia: Plan: resolved continue Metoprolol (7) Acute kidney injury: Plan: ANAMARIA vs CKD st 3 cr 1.74 today ARB stopped hold Lasix monitor BMP Plan VTE Prophyalxis - SQ heparin Diet - low Na, heart healthy, fluid restricted Disposition - admit to PCU Admission and Anticipated Discharge Date Admission Date: March 11, 2024 Subjective reports feeling better, no chest pain, card cath cancelled 03/13 reports feeling better today, no nausea, vomiting, no diarrhea Review of Systems Review of Systems: All systems reviewed & are unremarkable except as noted in Subjective Physical Exam Physical Exam: head atraumatic neck supple chest decreased breath sounds b/l heart irregularly irregular abdomen soft, nt, nd, bs present extremities swelling pedal edema Results & Data Results & Data Vital Signs (Past 12 Hours) Vital Signs Temp Pulse Pulse Resp BP Pulse Ox O2 Del Method 03/13/24 12:18 36.6 C 69 19 90/57 L 91 Room Air 03/13/24 08:45 81 03/13/24 08:45 Room Air 03/13/24 07:56 36.8 C 91 H 17 104/68 92 Room Air 03/13/24 02:39 36.8 C 89 18 100/61 92 Room Air PG Care Time/CCT Total # of Minutes Spent Total Time Spent with Patient: Total time spent is greater than 50% in coordination of care (as documented) at patient's floor/unit and/or counseling patient: Coding Level of Care Code 82997 SUB INP/OBS CARE 3/50MIN Diagnoses Acute heart failure I50.9 BPH with obstruction/lower urinary tract symptoms N40.1; N13.8 HTN (hypertension) I10 Anxiety and depression F41.9; F32.A Acute systolic (congestive) heart failure I50.21 Supraventricular tachycardia I47.10 Acute kidney injury N17.9
--- NOTE | 2024-03-13 13:26 | Cardiology Progress Note ---
Date of Service March 13, 2024 Assessment & Plan (1) Acute heart failure: (2) Acute non-ST elevation myocardial infarction (NSTEMI): (3) Supraventricular tachycardia: (4) Elevated troponin: Plan 1. Supraventricular tachycardia: Less atrial ectopy today. I would continue his metoprolol succinate. I do not believe his initial rhythm was atrial fibrillation after evaluation of the telemetry an additional EKGs. I do not believe there is an indication for anticoagulation at this point. 2. Heart failure with reduced ejection fraction: He seems well compensated currently. He did receive some diuretic again this morning. Unfortunately, the renal function did not improve much. We could reassess his volume status tomorrow. 3. Cardiomyopathy: Unknown etiology. Very likely ischemic given his demographic. Unfortunately, renal function is somewhat compromised which makes the addition of certain agents less desirable. This point will simply continue his metoprolol succinate. His renal function improves may have an opportunity to start an SG LT 2 inhibitor, a/ARB or Entresto. Blood pressure is also somewhat low which may impair our ability to be more aggressive. 4. Elevated troponin: Most likely related to ischemia. However, I suppose there is a possibility this represents a myocarditis. He did have some diffuse symptoms but was not severely ill leading up to his admission. Currently he seems to be feeling well on the biomarkers have remained elevated. Perhaps a recent ischemic event. I think we will continue his current medical therapy monitoring his renal function closely. Reassess volume status on a daily basis to determine if he needs additional diuretic Consider coronary angiography on Friday provided the renal function improves. Admission and Anticipated Discharge Date Admission Date: March 11, 2024 Subjective To the bathroom without significant dyspnea. No dizziness or lightheadedness. No chest pain. Review of Systems Review of Systems: Per HPI Physical Exam Physical Exam: The patient is alert and oriented. Mood and affect appeared normal. He answered all questions appropriately. HEENT: Pupils are equal and reactive to light and accommodation. Extraocular movements are intact. The sclerae are anicteric. Neuro: Cranial nerves intact Lungs: Clear to auscultation bilaterally. He has good air movement without use of accessory muscles. No rales wheezes or rhonchi. Cardiac: Heart demonstrates an irregular rhythm. Normal S1 and S2. Holosystolic murmur of variable intensity. Pulses: The patient has palpable radial pulses bilaterally that are equal in intensity Extremities: There was no evidence of hypoperfusion. There is no cyanosis or clubbing. Mild lower extremity edema bilaterally Skin: I did not appreciate any rashes on examination today. Results & Data Vital Signs (Past 12 Hours) Vital Signs Temp Pulse Pulse Resp BP Pulse Ox O2 Del Method 03/13/24 12:18 36.6 C 69 19 90/57 L 91 Room Air 03/13/24 08:45 81 03/13/24 08:45 Room Air 03/13/24 07:56 36.8 C 91 H 17 104/68 92 Room Air 03/13/24 02:39 36.8 C 89 18 100/61 92 Room Air Laboratory Results Abnormal Lab Results 03/12/24 03/13/24 17:07 05:35 Heparin Anti-Xa, Unfract 0.29 L Sodium 136 Potassium 4.4 Chloride 103 Carbon Dioxide 25 Anion Gap 8 BUN 30 H Creatinine 1.77 H Est Cr Clr Drug Dosing 32.6 Est GFR ( Amer) 39.2 Est GFR (Non-Af Amer) 33.8 BUN/Creatinine Ratio 16.9 Glucose 99 Calcium 8.6 PG Care Time/CCT Total # of Minutes Spent Total Time Spent with Patient: Total time spent is greater than 50% in coordination of care (as documented) at patient's floor/unit and/or counseling patient: Coding Level of Care Code 84089 SUB INP/OBS CARE 2/35MIN Diagnoses Acute heart failure I50.9 Acute non-ST elevation myocardial infarction (NSTEMI) I21.4 Supraventricular tachycardia I47.10 Elevated troponin R79.89
[2024-03-14 07:22] LABS: BUN Creatinine Ratio 18.6 (10-20); Calcium 8.7 mg/dl (8.6-10.3); Creatinine Clr Calc Pharmacy 22.8 ml/min; Est GFR (African American) 26.2 ml/min; Est GFR (Non-African American) 22.6 ml/min; Potassium 4.7 mmol/L (3.5-5.1)
[2024-03-14] MEDS: SODIUM CHLORIDE 0.9% 500 ML IV SCH (09:20)
[2024-03-14] MEDS: METOPROLOL SUCC 50MG EXT REL TAB PO SCH (09:21)
--- NOTE | 2024-03-14 10:37 | Nephrology Consultation ---
Date of Consultation March 14, 2024 Assessment & Plan (1) Acute kidney injury: Non-oliguric by report. UOP not fully documented. History suggestive of hemodynamically mediated ATN. Electrolytes acceptable. Volume status acceptable. BP slightly low. Will hold NSS infusion. Encourage PO intake. 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 Urine microscopy acellular. Renal US pending. Medications are appropriately dosed for kidney function. Telmisartan held. Avoid RAASi at this time. Document strict I/O's. Repeat metabolic profile tomorrow AM. Maintain dietary sodium, potassium, and fluid restriction. (2) Chronic kidney disease: CKD III. Baseline creatinine ~1.4 mg/dL. (3) Acute systolic (congestive) heart failure: Volume status acceptable. Diuretics held. Document I/O's. Document daily weight. (4) Supraventricular tachycardia: TSH reassuring. Rate controlled with metoprolol. Cardiology following. (5) BPH with obstruction/lower urinary tract symptoms: PSA stable at ~4. Followed by urology as outpatient. Symptoms controlled with terazosin. (6) HTN (hypertension): Asymptomatic hypotension at this time. Telmisartan held. (7) Cardiomyopathy: LVEF 20-25%. Cardiac catheterization planned once kidney function improves. Hold RAASi for now given ANAMARIA. Avoid SGLT2i in the setting of progressive ANAMARIA. History of Present Illness Reason for Consultation: ANAMARIA Requesting Physician: Anika Palomares MD Attending Physician: Anika Palomares MD History of Present Illness Mr. Richy Ramirez is an 88 year-old male with hypertension, BPH with LUTS, elevated PSA, JOSE, and CKD III. He presented to the ER at [facility] on March 11 with shortness of breath. Symptoms started ~2 weeks prior to admission. Richy ferguson eports significant WREN and decreased activity tolerance. He is not experiencing dyspnea at rest this AM. He denies chest pains. He denies palpitations. No syncope or presyncope. Chronic stable LUTS reported. Medical evaluation was notable for SVT, NSTEMI, new cardiomyopathy, and ANAMARIA. Heart rate controlled with metoprolol. Serum creatinine at baseline measured at 1.4 mg/dL. Creatinine was 1.8 mg/dL on admission. Creatinine now 2.47 mg/dL. Electrolytes are otherwise normal except for a mild hyponatremia. Richy has reportedly remained non- oliguric. I/O's not fully documented. Diuretics have been provided daily for evidence of pulmonary edema and CHF. Weight is down ~5 kg since admission. Diuretics have been held this AM. Cardiology is following. Troponin trended down since admission. Richy has remained chest pain free. TTE demonstrating severe hypokinesis of the basal segments with akinesis of the inferior septal wall and apex. LVEF 20-25%. Mild cLVH. The LV is dilated. Moderate to severe mitral regurgitation. Elevated right sided pressures. Richy describes increased urine output in response to furosemide on admission. He notes that his blood pressure has been running low. Telmisartan was started by his PCP in November in November and Richy states that his blood pressure has been low since the medication was started. Allergies Allergy/AdvReac Type Severity Reaction Status Date / Time Penicillins AdvReac Hives Verified 03/11/24 12:32 Home Medications Medication Instructions Recorded Confirmed Type vitamin E (dl, acetate) 450 mg 1,000 units PO 3XWK #30 caps 01/12/20 03/11/24 Rx (1,000 unit) capsule mecobalamin (vitamin B12) 1,000 1,000 mcg PO DAILY 12/09/23 03/11/24 History mcg chewable tablet metoprolol tartrate 50 mg tablet 75 mg (1.5 x 50 mg) PO DAILY #135 01/27/24 03/11/24 Rx tabs pantoprazole 40 mg tablet,delayed 40 mg PO DAILY #90 tabs 02/02/24 03/11/24 Rx release terazosin 5 mg capsule 5 mg PO DAILY #90 caps 02/16/24 03/11/24 Rx sertraline 25 mg tablet 0 mg PO DAILY 03/11/24 03/11/24 History telmisartan 20 mg tablet 0 mg PO DAILY 03/11/24 03/11/24 History Patient History Surgical History S/P adenoidectomy 1944 S/P tonsillectomy 1944 Family History Father Cardiac disorder Hypertension Myocardial infarction, Onset Age: 69 Brother Cardiac disorder Hypertension Denies family history of Ovarian cancer Prostate cancer Breast cancer Lung cancer Colorectal cancer Social History (Reviewed 03/14/24 @ 10:35 by JANENE Arce Smoking Status: Former smoker Tobacco Type: Cigarettes and Cigars Smoking End Date: 2007; Second Hand Exposure: No; Do You Dip or Chew Tobacco: No; Tobacco Cessation Education Requested by Patient: No Hx Alcohol Use: No Hx Substance Use: No Preferred Language: Turkish Communication Ability: Effective Visual Impairment: No Limitations Hearing Ability: Hard of Hearing Electric Solderer Required: No Beliefs That Will Affect Care: None marital status: / Current Living Situation: Alone Current Living Situation Comment: Private Home Alone current occupational status: retired Other Information That Helps Us Care for You: No Feels Safe at Home: Yes Safety Concerns: Feels Safe At This Time Childhood Exposure to Second-Hand Smoke: No Diet: regular Diet Comment: regular caffeine: Yes during the past year weight has: remained stable Dental Care, Regularly: Yes Physical Activity Frequency: Daily Physical Activity Frequency Comment: walk, outside work Seatbelt Use: always Sunscreen Use: No Assistive Devices: None Review of Systems Review of Systems: All systems reviewed & are unremarkable except as noted in HPI & below Physical Exam Constitutional: well developed; no acute distress Eyes: no scleral abnormality and no corneal abnormality ENMT: Mouth: no oral mucosal abnormality and oral mucous membranes not dry Neck: normal visual inspection and trachea midline Respiratory: normal respiratory effort Auscultation: lungs clear to auscultation bilaterally Cardiovascular: Rate/Rhythm: regular rate Heart Sounds: normal S1 and normal S2 Extremities: no edema Musculoskeletal: Extremities: no cyanosis and no clubbing Skin: normal turgor; no lesions Neurologic: Motor/Sensory: no tremor and no asterixis Psychiatric: Orientation: alert and oriented x 3 Results & Data Vital Signs (Past 12 Hours) Vital Signs Temp Pulse Pulse Resp BP Pulse Ox O2 Del Method 03/14/24 07:54 36.4 C L 75 19 103/73 90 Room Air 03/14/24 07:44 77 03/14/24 02:35 36.5 C 87 18 110/68 92 Room Air 03/13/24 23:14 65 03/13/24 22:41 36.8 C 74 18 95/63 L 93 Room Air Laboratory Results Laboratory Results - last 24 hr 03/14/24 06:28 Sodium 135 L Potassium 4.7 Chloride 103 Carbon Dioxide 25 Anion Gap 7 BUN 46 H Creatinine 2.47 H D Est Cr Clr Drug Dosing 22.8 Est GFR ( Amer) 26.2 Est GFR (Non-Af Amer) 22.6 BUN/Creatinine Ratio 18.6 Glucose 102 H Calcium 8.7 Diagnostic Findings XR chest 1V portable FINDINGS: No lines and tubes are seen. Cardiac silhouette is partially obscured. Calcified aorta is seen. Right perihilar and right lower lung densities are seen. There is prominent pulmonary vasculature. Likely moderate right and possible small left pleural effusion. IMPRESSION: 1. Airspace opacities in the right perihilar and lower lungs. This may represent atelectasis, pneumonia, and/or aspiration. 2. Pulmonary vascular congestion. 3. Moderate right and small left pleural effusions. PG Care Time/CCT Total # of Minutes Spent Total Time Spent with Patient: Total time spent is greater than 50% in coordination of care (as documented) at patient's floor/unit and/or counseling patient: Coding Level of Care Code 30626 IN/OBS CONSULT LVL 4,60M Diagnoses Acute kidney injury N17.9 Chronic kidney disease N18.9 Acute systolic (congestive) heart failure I50.21 Supraventricular tachycardia I47.10 BPH with obstruction/lower urinary tract symptoms N40.1; N13.8 HTN (hypertension) I10 Cardiomyopathy I42.9
--- NOTE | 2024-03-14 11:27 | Ultrasound Report ---
RENAL ULTRASOUND HISTORY: Acute kidney injury aditya COMPARISON: None. FINDINGS: Right kidney: 11.3 cm. No hydronephrosis. Normal corticomedullary differentiation and cortical thickn ess. Left kidney: 12.2 cm. No hydronephrosis. Normal corticomedullary differentiation and cortical thickne ss. Bladder: Urinary bladder wall thickening and trabeculation with partial distention. The bilateral ure teral jets were identified. Prostatomegaly. Cholelithiasis. Gallbladder wall thickening with trace pericholecystic fluid. Negativ e sonographic Reyes's sign. IMPRESSION: 1. No renal calculi or hydronephrosis identified. 2. Prostatomegaly with evidence of chronic outlet obstruction. 3. Cholelithiasis with findings suspicious for acute cholecystitis. ACT 112: Negative or not required by law. Electronically signed by: Josef Goff M.D. 03/14/2024 11:24 AM
--- NOTE | 2024-03-14 11:30 | Hospitalist Progress Note ---
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: Plan: PVR 82ml on bladder scan Continue terazosin (3) HTN (hypertension): Plan: Continue metoprolol BP is soft (4) Anxiety and depression: Plan: Continue sertraline (5) Acute systolic (congestive) heart failure: Plan: patient has acute severely reduced left ventricle function card cath on Friday no evidence of Afib , IV Heparin stopped Heparin SQ (6) Supraventricular tachycardia: Plan: resolved continue Metoprolol (7) Acute kidney injury: Plan: ANAMARIA vs CKD st 3 cr 1.74 today ARB stopped hold Lasix monitor BMP Plan IV fluids renal US consult nephrology BMP Admission and Anticipated Discharge Date Admission Date: March 11, 2024 Subjective To the bathroom without significant dyspnea. No dizziness or lightheadedness. No chest pain. Review of Systems Review of Systems: All systems reviewed & are unremarkable except as noted in Subjective Physical Exam Physical Exam: head atraumatic neck supple chest decreased breath sounds b/l heart regular abdomen soft, nt, nd, bs present extremities swelling pedal edema Results & Data Results & Data Vital Signs (Past 12 Hours) Vital Signs Temp Pulse Pulse Resp BP Pulse Ox O2 Del Method 03/14/24 07:54 36.4 C L 75 19 103/73 90 Room Air 03/14/24 07:44 77 03/14/24 02:35 36.5 C 87 18 110/68 92 Room Air PG Care Time/CCT Total # of Minutes Spent Total Time Spent with Patient: Total time spent is greater than 50% in coordination of care (as documented) at patient's floor/unit and/or counseling patient: Coding Level of Care Code 08400 SUB INP/OBS CARE 2/35MIN Diagnoses Acute heart failure I50.9 BPH with obstruction/lower urinary tract symptoms N40.1; N13.8 HTN (hypertension) I10 Anxiety and depression F41.9; F32.A Acute systolic (congestive) heart failure I50.21 Supraventricular tachycardia I47.10 Acute kidney injury N17.9
--- NOTE | 2024-03-14 13:03 | Cardiology Progress Note ---
Date of Service March 14, 2024 Assessment & Plan (1) Supraventricular tachycardia: Plan: -no recurrence on the monitor. -monitoring tech does reveal frequent PACs. -continue metoprolol tartrate. (2) Acute systolic (congestive) heart failure: Plan: -seems well compensated at this time. -diuretics on hold due to renal insufficiency. (3) Cardiomyopathy: Plan: -etiology not certain, however, ischemia is a possible etiology. -Dr. Guaman favors a cardiac catheterization, however, creatinine is increasing. -continue daily PRP. -continue metoprolol succinate. Admission and Anticipated Discharge Date Admission Date: March 11, 2024 Subjective The patient is resting comfortably in the bedside chair without complaints of chest pain or dyspnea. We did discuss his elevated creatinine which makes a cardiac catheterization tomorrow unlikely. Physical Exam Physical Exam: In general this is a well-developed well-nourished white male in no acute distress. HEENT exam is negative. Neck is supple with full carotid upstrokes. There are no carotid bruits. Jugular venous pressure is flat at 90. There is no thyromegaly. Cardiovascular exam reveals a regular rhythm with distant heart sounds. No obvious murmurs. Lungs are clear without rales, rhonchi, or wheezes. Abdomen is soft and nontender without bruits. Extremities reveal intact radial artery pulses bilaterally. There is 1+ pretibial edema. Results & Data Vital Signs (Past 12 Hours) Vital Signs Temp Pulse Pulse Resp BP Pulse Ox O2 Del Method 03/14/24 11:52 36.5 C 61 17 96/61 L 95 Room Air 03/14/24 09:26 Room Air 03/14/24 07:54 36.4 C L 75 19 103/73 90 Room Air 03/14/24 07:44 77 03/14/24 02:35 36.5 C 87 18 110/68 92 Room Air PG Care Time/CCT Total # of Minutes Spent Total Time Spent with Patient: Total time spent is greater than 50% in coordination of care (as documented) at patient's floor/unit and/or counseling patient: Coding Level of Care Code 90262 SUB INP/OBS CARE 3/50MIN Diagnoses Supraventricular tachycardia I47.10 Acute systolic (congestive) heart failure I50.21 Cardiomyopathy I42.9
[2024-03-14] MEDS: HEPARIN SOD 5,000 UNIT/0.5 ML VIAL SQ SCH (13:53)
[2024-03-15] MEDS: METOPROLOL SUCC 25MG EXT REL TAB PO SCH (08:49)
[2024-03-15 09:46] LABS: Basophils # (auto) 0.08 K/uL (0.00-0.20); Basophils % (auto) 0.9 %; Eosinophils # (auto) 0.12 K/uL (0.00-0.50); Eosinophils % (auto) 1.3 %; Hemoglobin 11.6 g/dl (14.0-18.0); Immature Granulocytes # (auto) 0.04 K/uL (0.01-0.20); Immature Granulocytes % (auto) 0.4 %; Lymphocytes # (auto) 1.32 K/uL (1.20-3.40); Lymphocytes % (auto) 14.7 %; Mean Corpuscular Hemoglobin 31.9 pg (25.0-34.0); Mean Corpuscular Hgb Conc 32.2 g/dL (32.0-36.0); Mean Corpuscular Volume 98.9 fL (80.0-100.0); Mean Platelet Volume 12.3 fL (9.4-12.4); Monocytes % (auto) 7.8 %; Neutrophils # (auto) 6.75 K/uL (1.40-6.50); Neutrophils % (auto) 74.9 %; Platelet Count 171 K/uL (130-400); RDW Coefficient of Variation 13.2 % (11.5-14.5); RDW Standard Deviation 48.4 fL (36.4-46.3); Red Blood Count 3.64 M/uL (4.70-6.10); White Blood Count 9.01 K/ul (4.8-10.8)
[2024-03-15 09:53] LABS: BUN Creatinine Ratio 20.4 (10-20); Calcium 8.9 mg/dl (8.6-10.3); Creatinine Clr Calc Pharmacy 23.4 ml/min; Est GFR (African American) 27.1 ml/min; Est GFR (Non-African American) 23.4 ml/min; Potassium 4.3 mmol/L (3.5-5.1)
--- NOTE | 2024-03-15 11:12 | Nephrology Progress Note ---
Date of Service March 15, 2024 Assessment & Plan (1) Acute kidney injury: Plan: Non-oliguric. History suggestive of hemodynamically mediated ATN. Electrolytes acceptable. Volume status acceptable. No current indication for MALTED MILK MIXER. Urine microscopy acellular. Renal US without hydronephrosis. Medications are appropriately dosed for kidney function. Telmisartan held. Avoid RAASi at this time. Document strict I/O's. Repeat metabolic profile tomorrow AM. Maintain dietary sodium, potassium, and fluid restriction. (2) Chronic kidney disease: Plan: CKD III. Baseline creatinine ~1.4 mg/dL. (3) Acute systolic (congestive) heart failure: Plan: Volume status acceptable. Diuretics held. Document I/O's. Document daily weight. (4) Supraventricular tachycardia: Plan: TSH reassuring. Rate controlled with metoprolol. Cardiology following. (5) BPH with obstruction/lower urinary tract symptoms: Plan: PSA stable at ~4. Followed by urology as outpatient. Symptoms controlled with terazosin. (6) HTN (hypertension): Plan: BP acceptable. Telmisartan held. (7) Cardiomyopathy: Plan: LVEF 20-25%. Cardiac catheterization on hold pending improvement in kidney function. Hold RAASi for now given ANAMARIA. Avoid SGLT2i in the setting of ANAMARIA. Admission and Anticipated Discharge Date Admission Date: March 11, 2024 Subjective No acute events overnight. Richy was seen and evaluated with his family at the bedside. Dr. Encarnacion was present. Plan of care was reviewed with the hospitalist, patient, and family. Richy does not endorse chest pains or palpitations. He denies significant fluid retention or edema. Review of Systems Review of Systems: All systems reviewed & are unremarkable except as noted in HPI & below Physical Exam Constitutional: well developed; no acute distress Eyes: no scleral abnormality and no corneal abnormality ENMT: Mouth: no oral mucosal abnormality and oral mucous membranes not dry Neck: normal visual inspection and trachea midline Respiratory: normal respiratory effort Cardiovascular: Rate/Rhythm: regular rate Extremities: + pedal edema Musculoskeletal: Extremities: no cyanosis and no clubbing Skin: normal turgor; no lesions Neurologic: Motor/Sensory: no tremor and no asterixis Psychiatric: Orientation: alert and oriented x 3 Results & Data Vital Signs (Past 12 Hours) Vital Signs Temp Pulse Resp BP Pulse Ox O2 Del Method 03/15/24 07:38 36.7 C 88 18 131/79 93 Room Air 03/15/24 03:06 36.5 C 88 17 119/72 91 Room Air Laboratory Results Laboratory Results - last 24 hr 03/15/24 09:01 WBC 9.01 RBC 3.64 L Hgb 11.6 L Hct 36.0 L MCV 98.9 MCH 31.9 MCHC 32.2 RDW Std Deviation 48.4 H RDW Coeff of Kahlil 13.2 Plt Count 171 MPV 12.3 Immature Gran % (Auto) 0.4 Neut % (Auto) 74.9 Lymph % (Auto) 14.7 [place] % (Auto) 7.8 Eos % (Auto) 1.3 Baso % (Auto) 0.9 Neut # (Auto) 6.75 H Lymph # (Auto) 1.32 [place] # (Auto) 0.70 H Eos # (Auto) 0.12 Baso # (Auto) 0.08 Immature Gran # (Auto) 0.04 Sodium 134 L Potassium 4.3 Chloride 103 Carbon Dioxide 22 Anion Gap 9 BUN 49 H Creatinine 2.40 H Est Cr Clr Drug Dosing 23.4 Est GFR ( Amer) 27.1 Est GFR (Non-Af Amer) 23.4 BUN/Creatinine Ratio 20.4 H Glucose 149 H Calcium 8.9 PG Care Time/CCT Total # of Minutes Spent Total Time Spent with Patient: Total time spent is greater than 50% in coordination of care (as documented) at patient's floor/unit and/or counseling patient: Coding Level of Care Code 51452 SUB INP/OBS CARE 3/50MIN Diagnoses Acute kidney injury N17.9 Chronic kidney disease N18.9 Acute systolic (congestive) heart failure I50.21 Supraventricular tachycardia I47.10 BPH with obstruction/lower urinary tract symptoms N40.1; N13.8 HTN (hypertension) I10 Cardiomyopathy I42.9
--- NOTE | 2024-03-15 15:50 | Cardiology Progress Note ---
Date of Service March 15, 2024 Assessment & Plan (1) Supraventricular tachycardia: Plan: -no recurrence on the monitor. -telemetry notes frequent PACs. -continue metoprolol tartrate. (2) Acute systolic (congestive) heart failure: Plan: -seems well compensated at this time. -diuretics on hold due to renal insufficiency. (3) Cardiomyopathy: Plan: -etiology not certain, however, ischemia is a possible etiology. -Dr. Guaman originally favored a cardiac catheterization, however, c reatinine is increasing. -did discuss the case with Dr. Guaman today. He now favors medical management. -continue daily PRP. -continue metoprolol succinate. Admission and Anticipated Discharge Date Admission Date: March 11, 2024 Subjective The patient is resting comfortably in the bedside chair without complaints. Physical Exam Physical Exam: In general this is a well-developed well-nourished white male in no acute distress. HEENT exam is negative. Neck is supple with full carotid upstrokes. There are no carotid bruits. Jugular venous pressure is flat at 90. There is no thyromegaly. Cardiovascular exam reveals a regular rhythm with distant heart sounds. No obvious murmurs. Lungs are clear without rales, rhonchi, or wheezes. Abdomen is soft and nontender without bruits. Extremities reveal intact radial artery pulses bilaterally. There is 1+ pretibial edema. Results & Data Vital Signs (Past 12 Hours) Vital Signs Temp Pulse Pulse Resp BP Pulse Ox O2 Del Method 03/15/24 15:46 67 03/15/24 14:23 36.5 C 75 17 117/71 93 Room Air 03/15/24 11:19 36.5 C 67 99/58 L 94 Room Air 03/15/24 09:00 65 03/15/24 09:00 Room Air 03/15/24 07:38 36.7 C 88 18 131/79 93 Room Air Diagnostic Findings color television console monitor notes no recurrence of his SVT. PG Care Time/CCT Total # of Minutes Spent Total Time Spent with Patient: Total time spent is greater than 50% in coordination of care (as documented) at patient's floor/unit and/or counseling patient: Coding Level of Care Code 60293 SUB INP/OBS CARE 3/50MIN Diagnoses Supraventricular tachycardia I47.10 Acute systolic (congestive) heart failure I50.21 Cardiomyopathy I42.9
--- NOTE | 2024-03-15 17:14 | Hospitalist Progress Note ---
Date of Service March 15, 2024 Assessment & Plan (1) Acute non-ST elevation myocardial infarction (NSTEMI): Plan: Unclear precisely when he had NSTEMI, will recheck troponin tomorrow to see if coming down, TTE with regional wall abnormalities concerning for this Ideally would perform cardiac cath but concern for worsening Cr has delayed this ASA Will add clopidogrel Continue metoprolol succinate Will discuss statin with cardiology given advanced age and LDL 60 - low dose (2) Acute systolic (congestive) heart failure: Plan: On admission due to presumed ischemic cardiomyopathy although diuresis with losartan caused ANAMARIA (3) Acute kidney injury: Plan: Cr appears to have peaked and trending mildly down Suspect due to poor perfusion in setting of ACS, Lasix use and losartan Losartan and diuretics now on hold without worsening heart failure Appears euvolemic Monitor Cr in AM (4) BPH with obstruction/lower urinary tract symptoms: Plan: PVR 82ml on bladder scan on admission Continue terazosin (5) HTN (hypertension): Plan: Continue metoprolol BP is soft (6) Anxiety and depression: Plan: Continue sertraline (7) Multiple ectopic atrial beats: Plan: Initially suspected to be a. fib RVR but p waves on telemetry ruled this out Anticoagulation subseqnelty discontinued Continue metoprolol succinate 25mg PO daily Plan VTE Prophylaxis - heparin 5000 units q8h Diet - Low Na, Low K, heart healthy (fluid restriction removed) Disposition - continued admission to PCU Admission and Anticipated Discharge Date Admission Date: March 11, 2024 Subjective No chest pain, shortness of breath, leg swelling is down from admission. No acute complaints. Multiple questions regarding cardiac catheterization and when this might take place. Cr appears to have peaked and slowly improving. Review of Systems Review of Systems: All systems reviewed & are unremarkable except as noted in HPI & below Physical Exam Constitutional: WD/WN, vitals as above ENMT: external ear and nose normal, oropharynx normal Respiratory: normal respiratory effort; no respiratory distress Auscultation: + crackles (bibasal); breath sounds present, no diminished lung sounds, no rales, no rhonchi and no wheezes Cardiovascular: Rate/Rhythm: regular rate and + irregularly irregular Heart Sounds: no murmur Extremities: normal capillary refill and + pedal edema; no calf tenderness Gastrointestinal (Abdomen): normal bowel sounds, soft, nontender, no hepatosplenomegaly Musculoskeletal: no cyanosis or clubbing, extremities motor strength 5/5 Skin: no rashes, warm and dry Neurologic: moves all extremities and awake; not confused Psychiatric: A+Ox3, euthymic affect Results & Data Results & Data Vital Signs (Past 12 Hours) Vital Signs Temp Pulse Pulse Resp BP Pulse Ox O2 Del Method 03/15/24 15:46 67 03/15/24 14:23 36.5 C 75 17 117/71 93 Room Air 03/15/24 11:19 36.5 C 67 99/58 L 94 Room Air 03/15/24 09:00 65 03/15/24 09:00 Room Air 03/15/24 07:38 36.7 C 88 18 131/79 93 Room Air PG Care Time/CCT Total # of Minutes Spent Total Time Spent: 60 Total Time Spent with Patient: Total time spent is greater than 50% in coordination of care (as documented) at patient's floor/unit and/or counseling patient: Coding Level of Care Code 78022 SUB INP/OBS CARE 3/50MIN Diagnoses Acute non-ST elevation myocardial infarction (NSTEMI) I21.4 Acute systolic (congestive) heart failure I50.21 Acute kidney injury N17.9 BPH with obstruction/lower urinary tract symptoms N40.1; N13.8 HTN (hypertension) I10 Anxiety and depression F41.9; F32.A Multiple ectopic atrial beats I49.1
[2024-03-15] MEDS: CLOPIDOGREL BISULFATE 300 MG TAB PO STA (21:24)
[2024-03-16 07:29] LABS: BUN Creatinine Ratio 21.9 (10-20); Calcium 8.6 mg/dl (8.6-10.3); Creatinine Clr Calc Pharmacy 26.8 ml/min; Est GFR (African American) 31.8 ml/min; Est GFR (Non-African American) 27.5 ml/min; Potassium 4.4 mmol/L (3.5-5.1)
[2024-03-16] MEDS: CLOPIDOGREL BISULFATE 75 MG TAB PO SCH (09:22)
--- NOTE | 2024-03-16 09:27 | Nephrology Progress Note ---
Date of Service March 16, 2024 Assessment & Plan (1) Acute kidney injury: Plan: Non-oliguric. History suggestive of hemodynamically mediated ATN. Electrolytes acceptable. Volume status acceptable. Few basilar rales on exam this AM - weight is stable and I/O's demonstrating slightly negative balance. Diuretics have been held. Will continue to monitor. ISB use encouraged. No current indication for GRAIN SHIPPER. Urine microscopy acellular. Renal US without hydronephrosis. Medications are appropriately dosed for kidney function. Telmisartan held. Avoid RAASi at this time. Document strict I/O's. Repeat metabolic profile tomorrow AM. Maintain dietary sodium, potassium, and fluid restriction. (2) Chronic kidney disease: Plan: CKD III. Baseline creatinine ~1.4 mg/dL. (3) Acute systolic (congestive) heart failure: Plan: Volume status acceptable. Diuretics held. Document I/O's. Document daily weight. (4) Supraventricular tachycardia: Plan: Rate controlled with metoprolol. Cardiology following. (5) BPH with obstruction/lower urinary tract symptoms: Plan: Symptoms controlled with terazosin. (6) HTN (hypertension): Plan: BP acceptable. Telmisartan held. (7) Cardiomyopathy: Plan: LVEF 20-25%. Cardiology has opted not to proceed with catheterization at this time but favors medical management. Richy states that he not aware of this change but expressed understanding. Dual antiplatelet therapy with aspirin and Plavix has been started. Hold RAASi for now given ANAMARIA. Avoid SGLT2i in the setting of ANAMARIA. Admission and Anticipated Discharge Date Admission Date: March 11, 2024 Subjective No acute events overnight. Richy was out of bed to chair. He did not sleep well last night. He states that he feels well this AM. No chest pains or palpitations. Denies shortness of breath. Edema stable. Appetite remains reduced but slightly improved. No urinary complaints. Review of Systems Review of Systems: All systems reviewed & are unremarkable except as noted in HPI & below Physical Exam Constitutional: well developed; no acute distress Eyes: no scleral abnormality and no corneal abnormality ENMT: Mouth: no oral mucosal abnormality and oral mucous membranes not dry Neck: normal visual inspection and trachea midline Respiratory: normal respiratory effort Auscultation: lungs clear to auscultation bilaterally and + rales (few soft, notably at right base) Cardiovascular: Rate/Rhythm: regular rate Heart Sounds: normal S1 and normal S2 Extremities: + edema (R>L 1-2+) Musculoskeletal: Extremities: no cyanosis and no clubbing Skin: normal turgor; no lesions Neurologic: Motor/Sensory: no tremor and no asterixis Psychiatric: Orientation: alert and oriented x 3 Results & Data Vital Signs (Past 12 Hours) Vital Signs Temp Pulse Resp BP Pulse Ox O2 Del Method 03/16/24 07:32 36.3 C L 94 H 18 135/81 94 Room Air 03/16/24 02:57 36.5 C 80 18 116/71 92 Room Air 03/15/24 22:53 Room Air 03/15/24 22:49 36.5 C 70 18 127/79 94 Room Air Laboratory Results Laboratory Results - last 24 hr 03/15/24 03/16/24 09:01 06:20 WBC 9.01 RBC 3.64 L Hgb 11.6 L Hct 36.0 L MCV 98.9 MCH 31.9 MCHC 32.2 RDW Std Deviation 48.4 H RDW Coeff of Kahlil 13.2 Plt Count 171 MPV 12.3 Immature Gran % (Auto) 0.4 Neut % (Auto) 74.9 Lymph % (Auto) 14.7 [place] % (Auto) 7.8 Eos % (Auto) 1.3 Baso % (Auto) 0.9 Neut # (Auto) 6.75 H Lymph # (Auto) 1.32 [place] # (Auto) 0.70 H Eos # (Auto) 0.12 Baso # (Auto) 0.08 Immature Gran # (Auto) 0.04 Sodium 134 L 136 Potassium 4.3 4.4 Chloride 103 106 Carbon Dioxide 22 24 Anion Gap 9 6 BUN 49 H 46 H Creatinine 2.40 H 2.10 H D Est Cr Clr Drug Dosing 23.4 26.8 Est GFR ( Amer) 27.1 31.8 Est GFR (Non-Af Amer) 23.4 27.5 BUN/Creatinine Ratio 20.4 H 21.9 H Glucose 149 H 109 H Calcium 8.9 8.6 Troponin I High Sens 362.0 H* PG Care Time/CCT Total # of Minutes Spent Total Time Spent with Patient: Total time spent is greater than 50% in coordination of care (as documented) at patient's floor/unit and/or counseling patient: Coding Level of Care Code 77703 SUB INP/OBS CARE 50MIN Diagnoses Acute kidney injury N17.9 Chronic kidney disease N18.9 Acute systolic (congestive) heart failure I50.21 Supraventricular tachycardia I47.10 BPH with obstruction/lower urinary tract symptoms N40.1; N13.8 HTN (hypertension) I10 Cardiomyopathy I42.9
--- NOTE | 2024-03-16 11:38 | Hospitalist Progress Note ---
Date of Service March 16, 2024 Assessment & Plan (1) Acute non-ST elevation myocardial infarction (NSTEMI): Plan: Unclear precisely when he had NSTEMI, will recheck troponin tomorrow to see if coming down, TTE with regional wall abnormalities concerning for this ASA + clopidogrel Continue metoprolol succinate Discussed statin with Dr Patterson and given advanced age and good LDL will hold off currently Cardiology planning on medical optimization prior to any cardiac cath - can be discharged home with close follow up in clinic No TUNG/ARB due to ANAMARIA 03/16 - concern from family he is returning home alone, requesting PT/OT evals, rehab vs. home health (2) Acute systolic (congestive) heart failure: Plan: On admission due to presumed ischemic cardiomyopathy although diuresis in addition to losartan caused ANAMARIA CXR with ongoing pulmonary edema and pleural effusion on right side No increasing WBC to suggest pneumonia and has remained stable off antibiotics Aspiration however remains a possibility and will have SLT review the patient Possibly will need low dose diuresis as outpatient but since he has been stable here and ANAMARIA improving If his cardiac output improves he may diurese without medications so reasonable to continue to hold off Will get BNP tomorrow to help see if he returns whether getting worse (3) Acute kidney injury: Plan: Cr appears to have peaked and trending down Suspect due to poor perfusion in setting of ACS, Lasix use and losartan Losartan and diuretics now on hold without worsening heart failure - CXR repeat remains with significant pulmonary edema but no worse and mildly improved from admission CXR (4) BPH with obstruction/lower urinary tract symptoms: Plan: PVR 82ml on bladder scan on admission Continue terazosin (5) HTN (hypertension): Plan: Continue metoprolol (6) Anxiety and depression: Plan: Continue sertraline (7) Multiple ectopic atrial beats: Plan: Initially suspected to be a. fib RVR but p waves on telemetry ruled this out Anticoagulation subsequently discontinued Continue metoprolol succinate 25mg PO daily (8) Abnormal ultrasound of abdomen: Plan: Impression of acute cholecystitis note on ultrasound - suspect this is just his congestive heart failure. No RUQ pain to suggest this. Plan VTE Prophylaxis - heparin 5000 units q8h Diet - Low Na, Low K, heart healthy Disposition - ok to transfer to med/tele now no longer having cardiac cath Admission and Anticipated Discharge Date Admission Date: March 11, 2024 Subjective No acute concerns today. No chest pain or shortness of breath. Discussed plan from cardiology is to see how he manages with medications initially and will be followed up in clinic. Review of Systems Review of Systems: All systems reviewed & are unremarkable except as noted in HPI & below Physical Exam Constitutional: WD/WN, vitals as above ENMT: external ear and nose normal, oropharynx normal Respiratory: normal respiratory effort; no respiratory distress Auscultation: + crackles (bibasal); breath sounds present, no diminished lung sounds, no rales, no rhonchi and no wheezes Cardiovascular: Rate/Rhythm: regular rate, + tachycardic and + irregularly irregular Heart Sounds: no murmur Extremities: normal capillary refill and + pedal edema; no calf tenderness Gastrointestinal (Abdomen): normal bowel sounds, soft, nontender, no hepatosplenomegaly Musculoskeletal: no cyanosis or clubbing, extremities motor strength 5/5 Skin: no rashes, warm and dry Neurologic: moves all extremities and awake; not confused Psychiatric: A+Ox3, euthymic affect Results & Data Results & Data Vital Signs (Past 12 Hours) Vital Signs Temp Pulse Resp BP Pulse Ox O2 Del Method 03/16/24 10:53 36.4 C L 70 17 118/65 95 Room Air 03/16/24 07:32 36.3 C L 94 H 18 135/81 94 Room Air 03/16/24 02:57 36.5 C 80 18 116/71 92 Room Air PG Care Time/CCT Total # of Minutes Spent Total Time Spent with Patient: Total time spent is greater than 50% in coordination of care (as documented) at patient's floor/unit and/or counseling patient: Coding Level of Care Code 13136 SUB INP/OBS CARE 2/35MIN Diagnoses Acute non-ST elevation myocardial infarction (NSTEMI) I21.4 Acute systolic (congestive) heart failure I50.21 Acute kidney injury N17.9 BPH with obstruction/lower urinary tract symptoms N40.1; N13.8 HTN (hypertension) I10 Anxiety and depression F41.9; F32.A Multiple ectopic atrial beats I49.1 Abnormal ultrasound of abdomen R93.5
--- NOTE | 2024-03-16 12:55 | XRay Report ---
TWO VIEW CHEST CLINICAL HISTORY: Crackles on physical examination. FINDINGS: PA and lateral chest radiographs are compared to study dated 03/11/2024. The heart is enlarg ed but noting atherosclerotic calcification of the thoracic aorta. There is pulmonary vascular conges tion with mild interstitial edema. There are small pleural effusions with dependent consolidation. Th ere is no pneumothorax. The skeletal structures are osteopenic. The bony thorax appears intact. 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 IMPRESSION: 1. Cardiomegaly with evidence of congestive failure and pulmonary edema. 2. Small pleural effusions with dependent consolidation. ACT 112: Negative or not required by law. Electronically signed by: Angel Santoyo M.D. 03/16/2024 12:54 PM
[2024-03-16 15:22] LABS: Albumin Level 3.2 gm/dl (3.4-5.0); Bilirubin Direct 0.2 mg/dl (0-0.2); Bilirubin,Total 0.7 mg/dl (0.2-1.0); Total Protein 6.4 gm/dl (6.0-8.3)
[2024-03-17 07:44] LABS: BUN Creatinine Ratio 21.9 (10-20); Calcium 8.6 mg/dl (8.6-10.3); Creatinine Clr Calc Pharmacy 30.8 ml/min; Est GFR (African American) 37.6 ml/min; Est GFR (Non-African American) 32.4 ml/min; Potassium 4.3 mmol/L (3.5-5.1)
--- NOTE | 2024-03-17 11:43 | Nephrology Progress Note ---
Date of Service March 17, 2024 Assessment & Plan (1) Acute kidney injury: Plan: Non-oliguric. History suggestive of hemodynamically mediated ATN. Electrolytes acceptable. Volume status acceptable. Some increased fluid retention noted. I suspect Richy would benefit from a low dose loop diuretic to encourage -- such as furosemide 20 to 40 mg daily. No current indication for ATMOSPHERIC SCIENTIST. Urine microscopy acellular. Renal US without hydronephrosis. Medications are appropriately dosed for kidney function. Telmisartan held. Avoid RAASi at this time. Document strict I/O's. Repeat metabolic profile tomorrow AM. Maintain dietary sodium, potassium, and fluid restriction. (2) Chronic kidney disease: Plan: CKD III. Baseline creatinine ~1.4 mg/dL. (3) Acute systolic (congestive) heart failure: Plan: Volume status slightly hypervolemic. Consider starting a low dose loop diuretic - such as furosemide 20 mg daily. Document I/O's. Document daily weight. (4) Supraventricular tachycardia: Plan: Rate controlled with metoprolol. Cardiology following. (5) BPH with obstruction/lower urinary tract symptoms: Plan: Symptoms controlled with terazosin. (6) HTN (hypertension): Plan: BP acceptable. Telmisartan held. (7) Cardiomyopathy: Plan: LVEF 20-25%. Cardiology has opted not to proceed with catheterization at this time but favors medical management. Richy states that he not aware of this change but expressed understanding. Dual antiplatelet therapy with aspirin and Plavix has been started. Hold RAASi for now given ANAMARIA. Avoid SGLT2i in the setting of ANAMARIA. Admission and Anticipated Discharge Date Admission Date: March 11, 2024 Subjective No acute events overnight. Richy was out of bed with PT this morning. He was walking in the [place]. He feels well. No chest pains or palpitations. No lightheadedness of dizziness. Richy admits to some WREN. Review of Systems Review of Systems: All systems reviewed & are unremarkable except as noted in HPI & below Physical Exam Constitutional: well developed; no acute distress Eyes: no scleral abnormality and no corneal abnormality ENMT: Mouth: no oral mucosal abnormality and oral mucous membranes not dry Neck: normal visual inspection and trachea midline Respiratory: normal respiratory effort Auscultation: lungs clear to auscultation bilaterally and + rales (slightly increased basilar, notably R) Cardiovascular: Rate/Rhythm: regular rate Heart Sounds: normal S1 and normal S2 Extremities: + pedal edema and + edema (R>L 1-2+) Musculoskeletal: Extremities: no cyanosis and no clubbing Skin: normal turgor; no lesions Neurologic: Motor/Sensory: no tremor and no asterixis Psychiatric: Orientation: alert and oriented x 3 Results & Data Vital Signs (Past 12 Hours) Vital Signs Temp Pulse Pulse Resp BP Pulse Ox O2 Del Method 03/17/24 11:25 36.3 C L 76 18 132/84 97 Room Air 03/17/24 10:10 Room Air 03/17/24 07:46 36.5 C 73 18 129/84 95 Room Air 03/17/24 07:39 70 03/17/24 04:18 36.5 C 77 18 131/78 94 Room Air Laboratory Results Laboratory Results - last 24 hr 03/16/24 03/17/24 06:20 06:50 Sodium 136 Potassium 4.3 Chloride 106 Carbon Dioxide 22 Anion Gap 8 BUN 40 H Creatinine 1.83 H Est Cr Clr Drug Dosing 30.8 Est GFR ( Amer) 37.6 Est GFR (Non-Af Amer) 32.4 BUN/Creatinine Ratio 21.9 H Glucose 107 H Calcium 8.6 Total Bilirubin 0.7 Direct Bilirubin 0.2 AST 15 ALT 11 Alkaline Phosphatase 46 B-Natriuretic Peptide 1384 H Total Protein 6.4 Albumin 3.2 L PG Care Time/CCT Total # of Minutes Spent Total Time Spent with Patient: Total time spent is greater than 50% in coordination of care (as documented) at patient's floor/unit and/or counseling patient: Coding Level of Care Code 87281 SUB INP/OBS CARE 3/50MIN Diagnoses Acute kidney injury N17.9 Chronic kidney disease N18.9 Acute systolic (congestive) heart failure I50.21 Supraventricular tachycardia I47.10 BPH with obstruction/lower urinary tract symptoms N40.1; N13.8 HTN (hypertension) I10 Cardiomyopathy I42.9
[2024-03-17] MEDS: FUROSEMIDE 20 MG TAB PO SCH (13:16)
--- NOTE | 2024-03-17 14:48 | Hospitalist Progress Note ---
Date of Service March 17, 2024 Assessment & Plan (1) Acute systolic (congestive) heart failure: Plan: Worsening BMP from 600-1000 over 2 to 3 days Chest x-ray showed evidence of pulmonary congestion Last 2D echo showed ejection fraction 20 to 25% with walking abnormality Continue Lasix 40 mg daily next monitor input and output, daily weight. (2) Acute non-ST elevation myocardial infarction (NSTEMI): Plan: Unclear precisely when he had NSTEMI, will recheck troponin tomorrow to see if coming down, TTE with regional wall abnormalities concerning for this ASA + clopidogrel Continue metoprolol succinate Discussed statin with Dr Patterson and given advanced age and good LDL will hold off currently Cardiology planning on medical optimization prior to any cardiac cath - can be discharged home with close follow up in clinic No TUNG/ARB due to ANAMARIA (3) Acute kidney injury: Plan: Cr appears to have peaked and trending down Suspect due to poor perfusion in setting of ACS, Lasix use and losartan Will reestablish Lasix low-dose on account of worsening congestive heart failure (4) BPH with obstruction/lower urinary tract symptoms: Plan: PVR 82ml on bladder scan on admission Continue terazosin (5) HTN (hypertension): Plan: Continue metoprolol (6) Anxiety and depression: Plan: Continue sertraline (7) Multiple ectopic atrial beats: Plan: Initially suspected to be a. fib RVR but p waves on telemetry ruled this out Anticoagulation subsequently discontinued Continue metoprolol succinate 25mg PO daily (8) Abnormal ultrasound of abdomen: Plan: Impression of acute cholecystitis note on ultrasound - suspect this is just his congestive heart failure. No RUQ pain to suggest this. Plan VTE Prophylaxis - heparin 5000 units q8h Diet - Low Na, Low K, heart healthy Disposition - Will need PT to reevaluate, patient will likely require SNF, family is concerned that he is can to be discharged home Admission and Anticipated Discharge Date Admission Date: March 11, 2024 Subjective Patient seen and examined, followed by the bedside, sitting in chair slightly short of breath Review of Systems Review of Systems: All systems reviewed are negative, apart from the ones contained in the history. Physical Exam Physical Exam: The patient is awake, alert and oriented 3, well developed and well nourished, normocephalic and atraumatic, lying in bed and in no acute distress. HEENT--PERRL, EOMI, mucous membranes and oropharynx mildly dry Neck--supple. No JVD. No bruits. Thyroid normal, trachea midline, no adenopathy. Heart--normal S1 and S2. No murmurs, rubs or gallops. Lungs--Reduced and on auscultation Abdomen--normal bowel sounds and soft. Extremities--no cyanosis or clubbing. No edema. Dermatologic--normal skin turgor, normal color, no abnormal lymph nodes, no rash. Neurologic--cranial nerves II through XII grossly intact. Rheumatologic--normal range of motion. Psychiatric--normal affect. Results & Data Results & Data Vital Signs (Past 12 Hours) Vital Signs Temp Pulse Pulse Resp BP Pulse Ox Pulse Ox 03/17/24 13:12 97 03/17/24 11:25 97.3 F L 76 18 132/84 97 03/17/24 10:10 03/17/24 07:46 97.7 F 73 18 129/84 95 03/17/24 07:39 70 03/17/24 04:18 97.7 F 77 18 131/78 94 O2 Del Method O2 Flow Rate 03/17/24 13:12 0 03/17/24 11:25 Room Air 03/17/24 10:10 Room Air 03/17/24 07:46 Room Air 03/17/24 07:39 03/17/24 04:18 Room Air PG Care Time/CCT Total # of Minutes Spent Total Time Spent with Patient: Total time spent is greater than 50% in coordination of care (as documented) at patient's floor/unit and/or counseling patient: Coding Level of Care Code 30764 SUB INP/OBS CARE 2/35MIN Diagnoses Acute systolic (congestive) heart failure I50.21 Acute non-ST elevation myocardial infarction (NSTEMI) I21.4 Acute kidney injury N17.9 BPH with obstruction/lower urinary tract symptoms N40.1; N13.8 HTN (hypertension) I10 Anxiety and depression F41.9; F32.A Multiple ectopic atrial beats I49.1 Abnormal ultrasound of abdomen R93.5 Time Spent (min) 35
[2024-03-17] MEDS: FUROSEMIDE 40 MG/4 ML VIAL IV ONE (15:22)
--- NOTE | 2024-03-18 03:01 | Communication Note ---
Date of Service: March 18, 2024 Patient converted to A-fib with RVR. EKG done bedside looks to be A-fib with RVR, though with reviewing previous cardiology notes may be supraventricular t achycardia with frequent atrial ectopy. Patient is asymptomatic, denies any chest pain or shortness of breath. Heart rate in the 130s. Initially given metoprolol tartrate 25 mg p.o. with only mild reduction in heart rate. Gave metoprolol tartrate 5 mg IV twice. Patient still to remain in the high 90s and low 100s still in A-fib. Will add magnesium onto morning labs. Will give magnesium sulfate x 2 and give patient's metoprolol succinate 25 mg early. Will monitor closely until dayshift.
[2024-03-18] MEDS: METOPROLOL TARTRATE 25 MG TAB PO ONE (03:19)
[2024-03-18] MEDS: METOPROLOL TARTRATE 1 MG/ML VIAL IV STA ×2 (04:04→04:25)
[2024-03-18] MEDS: MAGNESIUM SULFATE / D5W 1 GM/100 ML BAG IV SCH (05:30)
[2024-03-18 05:36] LABS: Hematocrit (blood only) 33.7 % (42.0-52.0); Hemoglobin 11.1 g/dl (14.0-18.0); Mean Corpuscular Hemoglobin 32.3 pg (25.0-34.0); Mean Corpuscular Hgb Conc 32.9 g/dL (32.0-36.0); Platelet Count 164 K/uL (130-400); RDW Coefficient of Variation 13.2 % (11.5-14.5); RDW Standard Deviation 46.8 fL (36.4-46.3); Red Blood Count 3.44 M/uL (4.70-6.10); White Blood Count 9.85 K/ul (4.8-10.8)
[2024-03-18 05:53] LABS: BUN Creatinine Ratio 18.7 (10-20); Calcium 8.5 mg/dl (8.6-10.3); Est GFR (African American) 37.9 ml/min; Est GFR (Non-African American) 32.7 ml/min; Magnesium 1.8 mg/dl (1.7-2.4); Potassium 4.1 mmol/L (3.5-5.1)
[2024-03-18] MEDS: FUROSEMIDE 40 MG/4 ML VIAL IV SCH (08:23)
--- NOTE | 2024-03-18 10:05 | Nephrology Progress Note ---
Date of Service March 18, 2024 Assessment & Plan (1) Acute kidney injury: Plan: Non-oliguric. ANAMARIA attributed to hemodynamically mediated ATN. Kidney function improving. Electrolytes acceptable. Volume status acceptable. Some increased fluid retention noted yesterday. Notable improvement with furosemide. I suspect Richy would benefit from a low dose loop diuretic but may not require 40 mg. He had a robust response to 40 mg IV yesterday. Heart rate slightly increased. Consider furosemide 20 mg daily or holding for 24 hours. Medications are appropriately dosed for kidney function. Telmisartan held. Avoid RAASi at this time. Maintain dietary sodium, potassium, and fluid restriction. (2) Chronic kidney disease: Plan: CKD III. Baseline creatinine ~1.4 mg/dL. (3) Acute systolic (congestive) heart failure: Plan: Suggest furosemide 20 mg daily. Volume status acceptable at this time. (4) Supraventricular tachycardia: Plan: Rate slightly increased. Richy denies symptoms. I suspect this may be related to volume shift from diuretics. Metoprolol has been adjusted per cardiology. Cardiology following. (5) BPH with obstruction/lower urinary tract symptoms: Plan: Symptoms controlled with terazosin. (6) HTN (hypertension): Plan: BP acceptable. Telmisartan held. (7) Cardiomyopathy: Plan: LVEF 20-25%. Cardiology has opted not to proceed with catheterization at this time but favors medical management. Richy states that he not aware of this change but expressed understanding. Dual antiplatelet therapy with aspirin and Plavix has been started. Hold RAASi for now given ANAMARIA. Avoid SGLT2i in the setting of ANAMARIA. Admission and Anticipated Discharge Date Admission Date: March 11, 2024 Subjective No acute events overnight. Richy reports urinary frequency and disrupted sleep last night. He feels that he is emptying his bladder completely. He describes significant increase in urine output following IV furosemide. He denies chest pains or palpitations. He denies lightheadedness or dizziness. He states that his breathing does seem to have improved. He has not been walking or out of bed much today. Review of Systems Review of Systems: All systems reviewed & are unremarkable except as noted in HPI & below Physical Exam Constitutional: well developed; no acute distress Eyes: no scleral abnormality and no corneal abnormality ENMT: Mouth: no oral mucosal abnormality and oral mucous membranes not dry Neck: normal visual inspection and trachea midline Respiratory: normal respiratory effort Auscultation: lungs clear to auscultation bilaterally and + rales (improved since yesterday) Cardiovascular: Rate/Rhythm: + tachycardic and + irregularly irregular Heart Sounds: normal S1 and normal S2 Extremities: + pedal edema and + edema (R>L 1-2+) Musculoskeletal: Extremities: no cyanosis and no clubbing Skin: normal turgor; no lesions Neurologic: Motor/Sensory: no tremor and no asterixis Psychiatric: Orientation: alert and oriented x 3 Results & Data Vital Signs (Past 12 Hours) Vital Signs Temp Pulse Pulse Resp BP BP Pulse Ox 03/18/24 09:07 97 H 03/18/24 07:41 36.4 C L 87 18 123/83 95 03/18/24 07:30 03/18/24 05:34 112 H 117/85 03/18/24 04:44 90 03/18/24 04:25 118 H 118/74 03/18/24 04:19 118 H 03/18/24 04:04 130 H 123/86 03/18/24 03:53 36.7 C 130 H 20 123/86 96 03/18/24 02:23 36.5 C 103 H 16 125/85 94 03/17/24 22:39 36.6 C 67 16 117/75 95 03/17/24 22:30 O2 Del Method 03/18/24 09:07 03/18/24 07:41 Room Air 03/18/24 07:30 Room Air 03/18/24 05:34 03/18/24 04:44 03/18/24 04:25 03/18/24 04:19 03/18/24 04:04 03/18/24 03:53 Room Air 03/18/24 02:23 Room Air 03/17/24 22:39 Room Air 03/17/24 22:30 Room Air Laboratory Results Laboratory Results - last 24 hr 03/18/24 05:18 WBC 9.85 RBC 3.44 L Hgb 11.1 L Hct 33.7 L MCV 98.0 MCH 32.3 MCHC 32.9 RDW Std Deviation 46.8 H RDW Coeff of Kahlil 13.2 Plt Count 164 MPV 12.0 Sodium 135 L Potassium 4.1 Chloride 103 Carbon Dioxide 26 Anion Gap 6 BUN 34 H Creatinine 1.82 H Est Cr Clr Drug Dosing 31.0 Est GFR ( Amer) 37.9 Est GFR (Non-Af Amer) 32.7 BUN/Creatinine Ratio 18.7 Glucose 108 H Calcium 8.5 L Magnesium 1.8 PG Care Time/CCT Total # of Minutes Spent Total Time Spent with Patient: Total time spent is greater than 50% in coordination of care (as documented) at patient's floor/unit and/or counseling patient: Coding Level of Care Code 12636 SUB INP/OBS CARE 3/50MIN Diagnoses Acute kidney injury N17.9 Chronic kidney disease N18.9 Acute systolic (congestive) heart failure I50.21 Supraventricular tachycardia I47.10 BPH with obstruction/lower urinary tract symptoms N40.1; N13.8 HTN (hypertension) I10 Cardiomyopathy I42.9
--- NOTE | 2024-03-18 10:14 | Electrocardiogram Report ---
Test Reason : Blood Pressure : / mmHG Vent. Rate : 131 BPM Atrial Rate : 147 BPM P-R Int : 000 ms QRS Dur : 096 ms QT Int : 316 ms P-R-T Axes : 000 -21 116 degrees QTc Int : 466 ms Atrial fibrillation with rapid ventricular response with premature ventricular or aberrantly conducte d complexes Low voltage QRS Nonspecific ST and T wave abnormality Abnormal ECG When compared with ECG of 12-MAR-2024 14:52, Previous ECG has undetermined rhythm, needs review Confirmed by Tashi Patterson ([id number]) on 03/18/2024 10:14:16 AM Referred By: Gabino Weaver Confirmed By:Tashi Patterson
--- NOTE | 2024-03-18 11:34 | Hospitalist Progress Note ---
Date of Service March 18, 2024 Assessment & Plan (1) Acute systolic (congestive) heart failure: Plan: Worsening BMP from 600-1000 over 2 to 3 days Chest x-ray showed evidence of pulmonary congestion Last 2D echo showed ejection fraction 20 to 25% with walking abnormality Had a brisk diuresis according to patient, will reduce lasix from 40mg daily to 20 Continue Lasix 20 mg daily monitor input and output, daily weight. (2) Acute non-ST elevation myocardial infarction (NSTEMI): Plan: Unclear precisely when he had NSTEMI, will recheck troponin tomorrow to see if coming down, TTE with regional wall abnormalities concerning for this ASA + clopidogrel Continue metoprolol succinate Discussed statin with Dr Patterson and given advanced age and good LDL will hold off currently Cardiology planning on medical optimization prior to any cardiac cath - can be discharged home with close follow up in clinic No TUNG/ARB due to ANAMARIA (3) Acute kidney injury: Plan: Cr appears to have peaked and trending down Suspect due to poor perfusion in setting of ACS, Lasix use and losartan Will reestablish Lasix low-dose on account of worsening congestive heart failure Will continue 20mg lasix daily as suggested by nephrology (4) BPH with obstruction/lower urinary tract symptoms: Plan: Continue terazosin (5) HTN (hypertension): Plan: Continue metoprolol (6) Anxiety and depression: Plan: Continue sertraline (7) Multiple ectopic atrial beats: Plan: Initially suspected to be a. fib RVR but p waves on telemetry ruled this out Anticoagulation subsequently discontinued Continue metoprolol succinate 25mg PO daily (8) Abnormal ultrasound of abdomen: Plan: Impression of acute cholecystitis note on ultrasound - suspect this is just his congestive heart failure. No RUQ pain to suggest this. Plan VTE Prophylaxis - heparin 5000 units q8h Diet - Low Na, Low K, heart healthy Disposition - PT recommends SNF, awaiting auth Admission and Anticipated Discharge Date Admission Date: March 11, 2024 Subjective patient seen and examined, he complained of frequent and increased urination following lasix Review of Systems Review of Systems: All systems reviewed are negative, apart from the ones contained in the history. Physical Exam Physical Exam: The patient is awake, alert and oriented 3, well developed and well nourished, normocephalic and atraumatic, lying in bed and in no acute distress. HEENT--PERRL, EOMI, mucous membranes and oropharynx mildly dry Neck--supple. No JVD. No bruits. Thyroid normal, trachea midline, no adenopathy. Heart--normal S1 and S2. No murmurs, rubs or gallops. Lungs--Reduced and on auscultation Abdomen--normal bowel sounds and soft. Extremities--no cyanosis or clubbing. No edema. Dermatologic--normal skin turgor, normal color, no abnormal lymph nodes, no rash. Neurologic--cranial nerves II through XII grossly intact. Rheumatologic--normal range of motion. Psychiatric--normal affect. Results & Data Results & Data Vital Signs (Past 12 Hours) Vital Signs Temp Pulse Pulse Resp BP BP Pulse Ox 03/18/24 09:07 97 H 03/18/24 07:41 97.5 F L 87 18 123/83 95 03/18/24 07:30 03/18/24 05:34 112 H 117/85 03/18/24 04:44 90 03/18/24 04:25 118 H 118/74 03/18/24 04:19 118 H 03/18/24 04:04 130 H 123/86 03/18/24 03:53 98.1 F 130 H 20 123/86 96 03/18/24 02:23 97.7 F 103 H 16 125/85 94 O2 Del Method 03/18/24 09:07 03/18/24 07:41 Room Air 03/18/24 07:30 Room Air 03/18/24 05:34 03/18/24 04:44 03/18/24 04:25 03/18/24 04:19 03/18/24 04:04 03/18/24 03:53 Room Air 03/18/24 02:23 Room Air PG Care Time/CCT Total # of Minutes Spent Total Time Spent with Patient: Total time spent is greater than 50% in coordination of care (as documented) at patient's floor/unit and/or counseling patient: Coding Level of Care Code 98614 SUB INP/OBS CARE 2/35MIN Diagnoses Acute systolic (congestive) heart failure I50.21 Acute non-ST elevation myocardial infarction (NSTEMI) I21.4 Acute kidney injury N17.9 BPH with obstruction/lower urinary tract symptoms N40.1; N13.8 HTN (hypertension) I10 Anxiety and depression F41.9; F32.A Multiple ectopic atrial beats I49.1 Abnormal ultrasound of abdomen R93.5 Time Spent (min) 35
[2024-03-19] MEDS: METOPROLOL TARTRATE 50 MG TAB PO STA (00:36)
[2024-03-19 08:13] LABS: BUN Creatinine Ratio 20.2 (10-20); Calcium 8.8 mg/dl (8.6-10.3); Creatinine Clr Calc Pharmacy 30.9 ml/min; Est GFR (African American) 37.6 ml/min; Est GFR (Non-African American) 32.4 ml/min; Potassium 4.1 mmol/L (3.5-5.1)
--- NOTE | 2024-03-19 09:23 | Nephrology Progress Note ---
Date of Service March 19, 2024 Assessment & Plan (1) Acute kidney injury: Plan: Non-oliguric. ANAMARIA attributed to hemodynamically mediated ATN. Creatinine improved to 1.8 mg/dL and remains stable. Electrolytes normal. Volume status acceptable. Medications are appropriately dosed for kidney function. Telmisartan held. Avoid RAASi at this time. The medication may be restarted as needed during outpatient follow up. Maintain dietary sodium, potassium, and fluid restriction. (2) Chronic kidney disease: Plan: CKD III. Baseline creatinine ~1.4 mg/dL. Please check a serum metabolic profile early next week (results can be faxed to my office at [phone]). I have requested follow up in the nephrology clinic with me in ~2 weeks. (3) Acute systolic (congestive) heart failure: Plan: Improved volume status. Furosemide 20 mg daily. Volume status acceptable at this time. (4) Supraventricular tachycardia: Plan: Improved rates following recent adjustment in metoprolol. Cardiology following. (5) BPH with obstruction/lower urinary tract symptoms: Plan: Symptoms controlled with terazosin. (6) HTN (hypertension): Plan: BP acceptable. Telmisartan held. Furosemide 20 mg daily to encourage slightly negative fluid balance. (7) Cardiomyopathy: Plan: LVEF 20-25%. Cardiology has opted not to proceed with catheterization at this time but favors medical management. Richy states that he not aware of this change but expressed understanding. Dual antiplatelet therapy with aspirin and Plavix has been started. Hold RAASi for now given ANAMARIA. Avoid SGLT2i in the setting of ANAMARIA. Admission and Anticipated Discharge Date Admission Date: March 11, 2024 Subjective No acute events overnight. No complaints this AM. No fluid retention or edema. Denies chest pains or palpitations. Breathing comfortably. Hopeful to be discharged today. Review of Systems Review of Systems: All systems reviewed & are unremarkable except as noted in HPI & below Physical Exam Constitutional: well developed; no acute distress Eyes: no scleral abnormality and no corneal abnormality ENMT: Mouth: no oral mucosal abnormality and oral mucous membranes not dry Neck: normal visual inspection and trachea midline Respiratory: normal respiratory effort Auscultation: lungs clear to auscultation bilaterally Cardiovascular: Rate/Rhythm: + irregularly irregular Heart Sounds: normal S1 and normal S2 Extremities: + edema (R>L 1-2+) Musculoskeletal: Extremities: no cyanosis and no clubbing Skin: normal turgor; no lesions Neurologic: Motor/Sensory: no tremor and no asterixis Psychiatric: Orientation: alert and oriented x 3 Results & Data Vital Signs (Past 12 Hours) Vital Signs Temp Pulse Pulse Resp BP Pulse Ox O2 Del Method 03/19/24 07:53 86 03/19/24 07:39 36.4 C L 106 H 18 127/81 95 Room Air 03/19/24 03:14 36.5 C 98 H 18 118/77 95 Room Air 03/18/24 23:37 36.7 C 113 H 20 120/82 95 Room Air 03/18/24 23:01 36.5 C 112 H 18 93/62 L 91 Room Air 03/18/24 22:26 Room Air 03/18/24 22:00 96 H Laboratory Results Laboratory Results - last 24 hr 03/19/24 07:18 Sodium 134 L Potassium 4.1 Chloride 102 Carbon Dioxide 25 Anion Gap 7 BUN 37 H Creatinine 1.83 H Est Cr Clr Drug Dosing 30.9 Est GFR ( Amer) 37.6 Est GFR (Non-Af Amer) 32.4 BUN/Creatinine Ratio 20.2 H Glucose 105 H Calcium 8.8 PG Care Time/CCT Total # of Minutes Spent Total Time Spent with Patient: Total time spent is greater than 50% in coordination of care (as documented) at patient's floor/unit and/or counseling patient: Coding Level of Care Code 63479 SUB INP/OBS CARE 3/50MIN Diagnoses Acute kidney injury N17.9 Chronic kidney disease N18.9 Acute systolic (congestive) heart failure I50.21 Supraventricular tachycardia I47.10 BPH with obstruction/lower urinary tract symptoms N40.1; N13.8 HTN (hypertension) I10 Cardiomyopathy I42.9
[2024-03-19] MEDS: FUROSEMIDE INJ 20 MG/2 ML VIAL IV SCH (09:39)
--- NOTE | 2024-03-19 13:29 | Cardiology Progress Note ---
Date of Service March 19, 2024 Assessment & Plan (1) PAF (paroxysmal atrial fibrillation): Plan: -noted on monitor over last 24-36 hours. -would initiate Eliquis at 2.5 mg b.i.d. -would increase metoprolol succinate to at least 50 mg daily. -follow-up with Dr. Guaman as an outpatient. (2) Supraventricular tachycardia: Plan: -no recurrence on the monitor. (3) Acute systolic (congestive) heart failure: Plan: -well compensated at this time. -would follow daily weights and sliding-scale diuretics. (4) Cardiomyopathy: Plan: -etiology not certain, however, ischemia is a possible etiology. -Dr. Guaman originally favored a cardiac catheterization, however, creatinine elevated. -did discuss the case with Dr. Guaman. He now favors medical management. -continue daily PRP. -continue metoprolol succinate. Admission and Anticipated Discharge Date Admission Date: March 11, 2024 Subjective The patient is resting comfortably in bed without complaints of chest pain, dyspnea, or palpitations. We have discussed his new diagnosis atrial fibrillation. His niece is present at the bedside. Physical Exam Physical Exam: In general this is a well-developed well-nourished white male in no acute distress. HEENT exam is negative. Neck is supple with full carotid upstrokes. There are no carotid bruits. Jugular venous pressure is flat at 90. There is no thyromegaly. Cardiovascular exam reveals a regular rhythm with distant heart sounds. No obvious murmurs. Lungs are clear without rales, rhonchi, or wheezes. Abdomen is soft and nontender without bruits. Extremities reveal intact radial artery pulses bilaterally. There is 1+ pretibial edema. Results & Data Vital Signs (Past 12 Hours) Vital Signs Temp Pulse Pulse Resp BP Pulse Ox O2 Del Method 03/19/24 11:54 36.4 C L 96 H 18 97/56 L 95 Room Air 03/19/24 07:53 86 03/19/24 07:39 36.4 C L 106 H 18 127/81 95 Room Air 03/19/24 03:14 36.5 C 98 H 18 118/77 95 Room Air Diagnostic Findings desk monitor notes atrial fibrillation with ventricular rates varying from 90 up to 140. PG Care Time/CCT Total # of Minutes Spent Total Time Spent with Patient: Total time spent is greater than 50% in coordination of care (as documented) at patient's floor/unit and/or counseling patient: Coding Level of Care Code 73616 SUB INP/OBS CARE MIN Diagnoses PAF (paroxysmal atrial fibrillation) I48.0 Supraventricular tachycardia I47.10 Acute systolic (congestive) heart failure I50.21 Cardiomyopathy I42.9
--- NOTE | 2024-03-19 13:36 | Hospitalist Progress Note ---
Date of Service March 19, 2024 Assessment & Plan (1) PAF (paroxysmal atrial fibrillation): Plan: New paroxysmal atrial fibrillation 2D echo showed ejection fraction 2024% Initiated on Eliquis 2.5 mg twice daily by cardiology Also continue Plavix, but stop aspirin to prevent triple anticoagulation Continue metoprolol, increase to 50 mg daily (2) Acute systolic (congestive) heart failure: Plan: Worsening BMP from 600-1000 over 2 to 3 days Chest x-ray showed evidence of pulmonary congestion Last 2D echo showed ejection fraction 20 to 25% with walking abnormality Had a brisk diuresis according to patient, will reduce lasix from 40mg daily to 20 Continue Lasix 20 mg daily monitor input and output, daily weight. (3) Acute non-ST elevation myocardial infarction (NSTEMI): Plan: Unclear precisely when he had NSTEMI, will recheck troponin tomorrow to see if coming down, TTE with regional wall abnormalities concerning for this ASA + clopidogrel Continue metoprolol succinate Discussed statin with Dr Patterson and given advanced age and good LDL will hold off currently Cardiology planning on medical optimization prior to any cardiac cath - can be discharged home with close follow up in clinic No TUNG/ARB due to ANAMARIA (4) Acute kidney injury: Plan: Cr appears to have peaked and trending down Suspect due to poor perfusion in setting of ACS, Lasix use and losartan Will reestablish Lasix low-dose on account of worsening congestive heart failure Will continue 20mg lasix daily as suggested by nephrology (5) BPH with obstruction/lower urinary tract symptoms: Plan: Continue terazosin (6) HTN (hypertension): Plan: Continue metoprolol (7) Anxiety and depression: Plan: Continue sertraline (8) Abnormal ultrasound of abdomen: Plan: Impression of acute cholecystitis note on ultrasound - suspect this is just his congestive heart failure. No RUQ pain to suggest this. (9) Multiple ectopic atrial beats: Plan VTE Prophylaxis - heparin 5000 units q8h Diet - Low Na, Low K, heart healthy Disposition - PT recommends SNF, awaiting auth Admission and Anticipated Discharge Date Admission Date: March 11, 2024 Subjective Patient seen and examined, family by the bedside, denies chest pain or shortness of breath. Review of Systems Review of Systems: All systems reviewed are negative, apart from the ones contained in the history. Physical Exam Physical Exam: The patient is awake, alert and oriented 3, well developed and well nourished, normocephalic and atraumatic, lying in bed and in no acute distress. HEENT--PERRL, EOMI, mucous membranes and oropharynx mildly dry Neck--supple. No JVD. No bruits. Thyroid normal, trachea midline, no adenopathy. Heart--normal S1 and S2. No murmurs, rubs or gallops. Lungs--Reduced and on auscultation Abdomen--normal bowel sounds and soft. Extremities--no cyanosis or clubbing. No edema. Dermatologic--normal skin turgor, normal color, no abnormal lymph nodes, no rash. Neurologic--cranial nerves II through XII grossly intact. Rheumatologic--normal range of motion. Psychiatric--normal affect. Results & Data Results & Data Vital Signs (Past 12 Hours) Vital Signs Temp Pulse Pulse Resp BP Pulse Ox O2 Del Method 03/19/24 11:54 97.5 F L 96 H 18 97/56 L 95 Room Air 03/19/24 07:53 86 03/19/24 07:39 97.5 F L 106 H 18 127/81 95 Room Air 03/19/24 03:14 97.7 F 98 H 18 118/77 95 Room Air PG Care Time/CCT Total # of Minutes Spent Total Time Spent with Patient: Total time spent is greater than 50% in coordination of care (as documented) at patient's floor/unit and/or counseling patient: Coding Level of Care Code 27761 SUB INP/OBS CARE 2/35MIN Diagnoses PAF (paroxysmal atrial fibrillation) I48.0 Acute systolic (congestive) heart failure I50.21 Acute non-ST elevation myocardial infarction (NSTEMI) I21.4 Acute kidney injury N17.9 BPH with obstruction/lower urinary tract symptoms N40.1; N13.8 HTN (hypertension) I10 Anxiety and depression F41.9; F32.A Abnormal ultrasound of abdomen R93.5 Multiple ectopic atrial beats I49.1 Time Spent (min) 35
[2024-03-19] MEDS: APIXABAN 2.5 MG TAB PO SCH (20:33)
[2024-03-20 07:50] LABS: BUN Creatinine Ratio 22.9 (10-20); Calcium 8.7 mg/dl (8.6-10.3); Creatinine Clr Calc Pharmacy 31.3 ml/min; Est GFR (African American) 38.6 ml/min; Est GFR (Non-African American) 33.3 ml/min; Potassium 3.9 mmol/L (3.5-5.1)
[2024-03-20] MEDS: METOPROLOL SUCC 50MG EXT REL TAB PO SCH (08:55)
--- NOTE | 2024-03-20 09:25 | Discharge Summary ---
Date of Service March 20, 2024 Admission HPI Per Admitting Provider Richy Ramirez is an 88 year old male who presents to the ER with shortness of breath, dizziness and orthopnea. Symptoms started 2 weeks ago when trying to take care of yard work and he got into house. Took BP and it was fine but noticed his pulse was around 122, taken due to feeling more tired than usual. Last couple of days symptoms have been much worse. Each day dizziness (lightheadedness) and tiredness lasting longer. No chest pain, abdominal pain, no constipation or diarrhea. No nausea, vomiting, sore throat, nasal congestion, fever, chills or urinary symptoms. Last week cough (no productive). No choking or coughing after eating. Appetite and sleeping problem last couple of days. Nothing taste good. Took all his normal medications this morning. Principal Diagnosis Acute congestive heart failure Discharge Exam The patient is awake, alert and oriented 3, well developed and well nourished, normocephalic and atraumatic, lying in bed and in no acute distress. HEENT--PERRL, EOMI, mucous membranes and oropharynx mildly dry Neck--supple. No JVD. No bruits. Thyroid normal, trachea midline, no adeno lisa. Heart--normal S1 and S2. No murmurs, rubs or gallops. Lungs--Reduced and on auscultation Abdomen--normal bowel sounds and soft. Extremities--no cyanosis or clubbing. No edema. Dermatologic--normal skin turgor, normal color, no abnormal lymph nodes, no rash. Neurologic--cranial nerves II through XII grossly intact. Rheumatologic--normal range of motion. Psychiatric--normal affect. Discharge Data Allergies Allergy/AdvReac Type Severity Reaction Status Date / Time Penicillins AdvReac Hives Verified 03/11/24 12:32 Consultations 03/11/24 12:04 ED Decision to Admit Stat 03/11/24 17:48 Consult Cardiology Routine 03/14/24 09:36 Consult Nephrology Routine Ordered Studies 03/14/24 09:37 US Renal Bladder [US renal/blad retro comp] Routine Hospital Course (1) PAF (paroxysmal atrial fibrillation): New paroxysmal atrial fibrillation 2D echo showed ejection fraction 5% Initiated on Eliquis 2.5 mg twice daily by cardiology Also continue Plavix, but stop aspirin to prevent triple anticoagulation Continue metoprolol, increase to 50 mg daily (2) Acute systolic (congestive) heart failure: Worsening BMP from 600-1000 over 2 to 3 days Chest x-ray showed evidence of pulmonary congestion Last 2D echo showed ejection fraction 20 to 25% with walking abnormality Had a brisk diuresis according to patient, will reduce lasix from 40mg daily to 20 Continue Lasix 20 mg daily monitor input and output, daily weight. (3) Acute non-ST elevation myocardial infarction (NSTEMI): Unclear precisely when he had NSTEMI, will recheck troponin tomorrow to see if coming down, TTE with regional wall abnormalities concerning for this ASA + clopidogrel Continue metoprolol succinate Discussed statin with Dr Patterson and given advanced age and good LDL will hold off currently Cardiology planning on medical optimization prior to any cardiac cath - can be discharged home with close follow up in clinic No TUNG/ARB due to ANAMARIA (4) Acute kidney injury: Cr appears to have peaked and trending down Suspect due to poor perfusion in setting of ACS, Lasix use and losartan Will reestablish Lasix low-dose on account of worsening congestive heart failure Will continue 20mg lasix daily as suggested by nephrology (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 No RUQ pain to suggest this. (9) Multiple ectopic atrial beats: Plan VTE Prophylaxis - heparin 5000 units q8h Diet - Low Na, Low K, heart healthy Disposition - Discharge to [facility] Total Time Total Time Spent Total Time Spent (In Minutes): 35 Discharge Plan Discharge Items Patient Disposition: Transfer Nursing Home Fac Reason For Visit: new onset a. fib RVR, CHF Discharge Diagnosis: acute chf, afib Activity: Resume your previous activity Non-emergency contact: Primary Care Provider, Call Center Analyst and Marketing Services Rep Call non-emergency contact if: you have any medication questions Follow-up/Referrals: Gabino Weaver CRNP [Primary Care Provider] - Diet: Heart Healthy Addtl Attending Provider Instructions: Please make appointment to follow-up with nephrology and also cardiology Pending Studies at Discharge: No Stand-Alone Forms: My [facility] Skilled Items Patient informed of condition?: Yes DNR: No Discharge Level of Care: Skilled Communicable Disease: No Discharge Prognosis: Improving Lines: None Urinary Catheter: No Medications and DC Order Prescriptions: New metoprolol succinate 50 mg Tablet Extended Release 24 Hr 50 mg PO QAM 30 Days Qty: 30 0RF clopidogrel 75 mg Tablet 75 mg PO QAM 30 Days Qty: 30 0RF Eliquis 2.5 mg Tablet 2.5 mg PO BID 30 Days Qty: 60 0RF furosemide [Lasix] 20 mg tablet 20 mg PO DAILY Qty: 30 0RF Continued pantoprazole 40 mg tablet,delayed release (DR/EC) 40 mg PO DAILY Qty: 90 1RF terazosin 5 mg capsule 5 mg PO DAILY Qty: 90 3RF vitamin E (dl, acetate) 1,000 unit capsule 1,000 units PO 3XWK Qty: 30 0RF Rx Instructions: Unable to verify OTC meds at this date/time. mecobalamin (vitamin B12) 1,000 mcg tablet,chewable 1,000 mcg PO DAILY Rx Instructions: Unable to verify OTC meds at this date/time. sertraline 25 mg tablet 0 mg PO DAILY Rx Instructions: Unable to verify w/ pt at this date/time. Last filled 12/2023 x30 day supply. Original Directions: 25mg by mouth once daily Held telmisartan 20 mg tablet 0 mg PO DAILY Hold Instructions: Resume on 04/02/24. Do not resume until you see your mangle feeder Rx Instructions: Unable to verify w/ pt at this date/time. Last filled 12/2023 x30 day supply. Original Directions: 20mg by mouth once daily Discontinued metoprolol tartrate 50 mg tablet 75 mg PO DAILY Qty: 135 3RF Rx Instructions: TAKE 1/2 TAB in a.m. AND 1 TAB in p.m. Discharge Orders: Discharge Order (Routine); Ordered 03/20/24 Ordered By: Rosina Peter/Other Patient Handouts: A1C Admission Data Admit Date/Time: 03/11/24 12:07 Attending Provider: Rosina Arauz Admit Provider: Alen Encarnacion Primary Care Provider: Gabino Weaver Other Providers: Alen Encarnacion; Elijah Guaman; [facility] Coding Level of Care Code 33550 INP/OBS DISCH >30 MIN Diagnoses PAF (paroxysmal atrial fibrillation) I48.0 Acute systolic (congestive) heart failure I50.21 Acute non-ST elevation myocardial infarction (NSTEMI) I21.4 Acute kidney injury N17.9 BPH with obstruction/lower urinary tract symptoms N40.1; N13.8 HTN (hypertension) I10 Anxiety and depression F41.9; F32.A Abnormal ultrasound of abdomen R93.5 Multiple ectopic atrial beats I49.1 Time Spent (min) 35
--- NOTE | 2024-03-20 10:15 | Nephrology Progress Note ---
Date of Service March 20, 2024 Assessment & Plan (1) Acute kidney injury: Plan: Non-oliguric. ANAMARIA attributed to hemodynamically mediated ATN. Creatinine improved to 1.8 mg/dL and remains stable. Electrolytes normal. Volume status acceptable. Medications are appropriately dosed for kidney function. Telmisartan held. Avoid RAASi at this time. The medication may be restarted as needed during outpatient follow up. Maintain dietary sodium, potassium, and fluid restriction. (2) Chronic kidney disease: Plan: CKD III. Baseline creatinine ~1.4 mg/dL. Please check a serum metabolic profile within 1 week of discharge (results can be faxed to my office at [phone]). I have requested follow up in the nephrology clinic with me in ~2 weeks. (3) Acute systolic (congestive) heart failure: Plan: Improved volume status. Furosemide 20 mg daily. Volume status acceptable at this time. (4) Supraventricular tachycardia: Plan: Reasonable rate control with metoprolol. Cardiology following. (5) BPH with obstruction/lower urinary tract symptoms: Plan: Symptoms controlled with terazosin. (6) HTN (hypertension): Plan: BP acceptable. Telmisartan held. Furosemide 20 mg daily to encourage slightly negative fluid balance. (7) Cardiomyopathy: Plan: Hold RAASi for now given ANAMARIA. Avoid SGLT2i in the setting of ANAMARIA. These therapies may be revisited during outpatient follow up. Admission and Anticipated Discharge Date Admission Date: March 11, 2024 Subjective No acute events overnight. Richy feels well this AM. No chest pains or palpitations. No shortness of breath. Anticipated discharge to [facility] today. Review of Systems Review of Systems: All systems reviewed & are unremarkable except as noted in HPI & below Physical Exam Constitutional: well developed; no acute distress Eyes: no scleral abnormality and no corneal abnormality ENMT: Mouth: no oral mucosal abnormality and oral mucous membranes not dry Neck: normal visual inspection and trachea midline Respiratory: normal respiratory effort Auscultation: lungs clear to auscultation bilaterally and + rales (improved since yesterday) Cardiovascular: Rate/Rhythm: regular rate, + tachycardic and + irregularly irregular Heart Sounds: normal S1 and normal S2 Extremities: + pedal edema and + edema (R>L 1-2+) Musculoskeletal: Extremities: no cyanosis and no clubbing Skin: normal turgor; no lesions Neurologic: Motor/Sensory: no tremor and no asterixis Psychiatric: Orientation: alert and oriented x 3 Results & Data Vital Signs (Past 12 Hours) Vital Signs Temp Pulse Pulse Resp BP Pulse Ox O2 Del Method 03/20/24 09:22 Room Air 03/20/24 08:14 114 H 03/20/24 07:40 36.5 C 79 16 130/78 93 Room Air 03/20/24 03:04 36.6 C 110 H 18 106/73 93 Room Air 03/19/24 23:12 36.4 C L 96 H 18 122/78 95 Room Air Laboratory Results Laboratory Results - last 24 hr 03/20/24 06:51 Sodium 136 Potassium 3.9 Chloride 104 Carbon Dioxide 24 Anion Gap 8 BUN 41 H Creatinine 1.79 H Est Cr Clr Drug Dosing 31.3 Est GFR ( Amer) 38.6 Est GFR (Non-Af Amer) 33.3 BUN/Creatinine Ratio 22.9 H Glucose 108 H Calcium 8.7 PG Care Time/CCT Total # of Minutes Spent Total Time Spent with Patient: Total time spent is greater than 50% in coordination of care (as documented) at patient's floor/unit and/or counseling patient: Coding Level of Care Code 11228 SUB INP/OBS CARE 3/50MIN Diagnoses Acute kidney injury N17.9 Chronic kidney disease N18.9 Acute systolic (congestive) heart failure I50.21 Supraventricular tachycardia I47.10 BPH with obstruction/lower urinary tract symptoms N40.1; N13.8 HTN (hypertension) I10 Cardiomyopathy I42.9
== END 2024-03-20 12:32 | DRG 280 ==
LOC: ED 09:58 → EDINP 12:07 → SUATTDRO 12:07 → 2S 14:28 → 2N 03-16 17:44

== ENCOUNTER 2024-03-30 13:52 | Inpatient (IN) ==
[2024-03-30] MEDS: SODIUM CHLORIDE 0.9% 500 ML IV ONE ×2 (14:14→15:53)
[2024-03-30 14:41] LABS: Basophils # (auto) 0.05 K/uL (0.00-0.20); Basophils % (auto) 0.6 %; Eosinophils # (auto) 0.12 K/uL (0.00-0.50); Eosinophils % (auto) 1.3 %; Hematocrit (blood only) 35.2 % (42.0-52.0); Hemoglobin 11.3 g/dl (14.0-18.0); Immature Granulocytes # (auto) 0.04 K/uL (0.01-0.20); Immature Granulocytes % (auto) 0.4 %; Lymphocytes # (auto) 1.34 K/uL (1.20-3.40); Mean Corpuscular Hemoglobin 31.5 pg (25.0-34.0); Mean Corpuscular Hgb Conc 32.1 g/dL (32.0-36.0); Mean Corpuscular Volume 98.1 fL (80.0-100.0); Mean Platelet Volume 11.9 fL (9.4-12.4); Monocytes % (auto) 10.1 %; Neutrophils # (auto) 6.47 K/uL (1.40-6.50); Neutrophils % (auto) 72.6 %; Platelet Count 193 K/uL (130-400); RDW Coefficient of Variation 13.3 % (11.5-14.5); RDW Standard Deviation 47.4 fL (36.4-46.3); Red Blood Count 3.59 M/uL (4.70-6.10); White Blood Count 8.92 K/ul (4.8-10.8)
[2024-03-30 14:57] LABS: Albumin Level 3.3 gm/dl (3.4-5.0); Bilirubin,Total 0.7 mg/dl (0.2-1.0); Calcium 8.5 mg/dl (8.6-10.3); Creatinine Clr Calc Pharmacy 30.2 ml/min; Est GFR (African American) 37.6 ml/min; Est GFR (Non-African American) 32.4 ml/min; Globulin 3.4 gm/dl (2.5-4.0); Total Protein 6.7 gm/dl (6.0-8.3)
[2024-03-30 15:10] LABS: INR 1.2 (0.9-1.1); Partial Thromboplastin Ratio 1.2; Partial Thromboplastin Time 32 Seconds (21-31)
[2024-03-30] MEDS: METOPROLOL TARTRATE 1 MG/ML VIAL IV STA (15:14)
[2024-03-30 15:16] LABS: Troponin I High Sensitivity 2385.6 pg/ml (0-20)
--- NOTE | 2024-03-30 15:16 | XRay Report ---
XR chest 1V portable HISTORY: tachycardia COMPARISON: Chest 03/16/2024. FINDINGS: No pneumothorax. The cardiac silhouette remains mildly enlarged. There is mild pulmonary ed migel and small bilateral pleural effusions. This is improved. Bibasilar airspace opacities are again n oted. Calcifications within the aortic knob. No acute fractures. IMPRESSION: 1. Cardiomegaly with mild interstitial pulmonary edema and small bilateral pleural effusions. This villasenor s improved. 2. Bibasilar densities persist and may represent a superimposed pneumonia. ACT 112: Negative or not required by law. Electronically signed by: Medardo Woodall M.D. 03/30/2024 3:15 PM
[2024-03-30] MEDS: SODIUM CHLORIDE 0.9% 250 ML IV ONE (15:19)
--- NOTE | 2024-03-30 16:12 | History & Physical Report ---
Date of Service March 30, 2024 Assessment & Plan (1) Diarrhea: Plan: Diarrhea that began on Tuesday 03/27 while at rehab Yellow / mucousy stool PCR stool/C. difficile ordered, pending Will cover with vancomycin 125mg p.o. q6h for potential C. Diff for now A.m. CBC, BMP, mag (2) NSTEMI (non-ST elevated myocardial infarction): Plan: Troponin elevated at 2385-->3448 on arrival; trend q6h to peak; ?secondary to ischemia or a fib rvr Patient is chest pain free at time of admission Cardiology evaluation appreciated Will transition to heparin IV low-dose without bolus in the event that cardiac catheterization is required; NPO at midnight Continue ASA plus clopidogrel (3) History of non-ST elevation myocardial infarction (NSTEMI): Plan: Recent [place] hospitalization from 03/11 - 03/18 for suspected NSTEMI However cardiac cath was deferred due to rising creatinine level Plan was for medical optimization prior to any cardiac cath, and patient was discharged home with close follow-up in clinic (4) Atrial fibrillation with RVR: Plan: EKG with A-fib RVR at 140 bpm on arrival Patient became hypotensive at 95/80 after administration of Lopressor 2.5 mg IV in the ED Will hold off on further AV blockers for now Optimize K>4 and Mag>2 Continuous telemetry monitoring (5) HFrEF (heart failure with reduced ejection fraction): Plan: Echocardiogram on 03/11/24 with LVEF at 20-25% with severe hypokinesis Daily weights Strict I&O monitoring Heart healthy, low-sodium diet Hold Lasix in the setting of hypotension (6) Chronic kidney disease: Plan: Continue to hold telmisartan (7) Elevated troponin: Plan Disposition: Admit to PCU telemetry Full code Heart healthy, low-sodium diet (will defer fluid restriction at this time due to patient's GI losses and hypotension) VTE PPx: Hold Eliquis; will place on IV heparin low-dose (no bolus) in the event that patient would require a cardiac catheterization History of Present Illness Chief Complaint: Diarrhea Primary Care Provider: FLORI Pérez Richy is an 88-year-old male with PMH of HTN, NSTEMI, GERD, BPH, anxiety and depression, CHF, CKD, cardiomyopathy, and paroxysmal A-fib (on apixaban). He presented via BLS for diarrhea that began on Tuesday 03/27 while patient was at [facility] for rehab. Patient lives alone. He was initially at [facility] from 03/11-03/18 for cardiac issues, then went to [facility] for rehab and was discharged home 2 days ago. He reports that he was much closer to the restrooms at [facility], and after being discharged home he was having trouble getting to the bathroom. He denies any falls or fecal/urinary incontinence. 2 episodes of diarrhea this morning. Liquidy in consistency. He also notes they have been yellow, mucousy. No blood in his diarrhea. He denies any recent antibiotic use, and reports that the stool has not been malodorous. He has not been requiring a walker at baseline for ambulation. In terms of change in appetite, he does note that he has had a decreased appetite, as he did not like the food at [facility]. No PMH of IBS, C. difficile, food intolerances, or bowel issues to his knowledge. No sick contacts that he is aware of. He is a former tobacco cigarette smoker but quit in 2003; denies any recent alcohol use. He is chest pain-free at time of admission. His niece and nephew help manage his medications at home; he reports he took all of his regular morning medications today. Patient is hypotensive at 95/80 and tachycardic at 120 bpm at time of admission. ED course: NSS 500 mL IV x 2 NSS 250 mL IV Lopressor 2.5 mg IV ROS: Patient endorses diarrhea x 2 days (which comes on suddenly and he reports that he has "no control" over it). Patient denies fever, chills, night-sweats, dizziness, lightheadedness with walking, falls/fainting, MOORE, chest pain, chest palpitations, chest pressure/tightness, left shoulder pressure/tightness, SOB at rest or with exertion, cough, wheezing, abdominal pain, nausea, vomiting, burning with urination, dysuria, blood in the urine/stool, or numbness/tingling in the arms or legs. Allergies Allergy/AdvReac Type Severity Reaction Status Date / Time Penicillins AdvReac Hives Verified 03/11/24 12:32 Home Medications Medication Instructions Recorded Confirmed Type vitamin E (dl, acetate) 450 mg 1,000 units PO 3XWK #30 caps 01/12/20 03/30/24 Rx (1,000 unit) capsule mecobalamin (vitamin B12) 1,000 1,000 mcg PO DAILY 12/09/23 03/30/24 History mcg chewable tablet pantoprazole 40 mg tablet,delayed 40 mg PO DAILY #90 tabs 02/02/24 03/30/24 Rx release terazosin 5 mg capsule 5 mg PO DAILY #90 caps 02/16/24 03/30/24 Rx sertraline 25 mg tablet 25 mg PO DAILY 03/11/24 03/30/24 History telmisartan 20 mg tablet 0 mg PO DAILY 03/11/24 03/30/24 History apixaban 2.5 mg tablet (Eliquis) 2.5 mg PO BID 30 days #60 tabs 03/19/24 03/30/24 Rx clopidogrel 75 mg tablet 75 mg PO QAM 30 days #30 tabs 03/19/24 03/30/24 Rx furosemide 20 mg tablet (Lasix) 20 mg PO DAILY #30 tabs 03/19/24 03/30/24 Rx metoprolol succinate 50 mg 50 mg PO QAM 30 days #30 tabs 03/19/24 03/30/24 Rx tablet,extended release 24 hr Past Med/Surg History Problem List (Updated 03/30/24 @ 19:30 by Medardo Roa PA-C) NSTEMI (non-ST elevated myocardial infarction) Elevated troponin (Acute) Diarrhea (Acute) HFrEF (heart failure with reduced ejection fraction) History of non-ST elevation myocardial infarction (NSTEMI) Diarrhea Atrial fibrillation with RVR (Acute) PAF (paroxysmal atrial fibrillation) Abnormal ultrasound of abdomen Multiple ectopic atrial beats Cardiomyopathy Chronic kidney disease Acute kidney injury Acute systolic (congestive) heart failure Elevated troponin Supraventricular tachycardia Acute non-ST elevation myocardial infarction (NSTEMI) (Acute) Pulmonary edema (Acute) Anxiety and depression Impaired glucose metabolism Elevated PSA (Chronic) 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) Hiatal hernia with GERD (Chronic) HTN (hypertension) (Chronic) Surgical History S/P adenoidectomy 1944 S/P tonsillectomy 1945 Family History Father Cardiac disorder Hypertension Myocardial infarction, Onset Age: 69 Brother Cardiac disorder Hypertension Denies family history of Ovarian cancer Prostate cancer Breast cancer Lung cancer Colorectal cancer Social History Smoking Status: Never smoker Tobacco Type: Cigarettes and Cigars Second Hand Exposure: No; Do You Dip or Chew Tobacco: No; Hx Alcohol Use: Yes Alcohol type: wine Hx Substance Use: No Preferred Language: Sinhala Communication Ability: Effective Visual Impairment: No Limitations Hearing Ability: Hard of Hearing Brakes Inspector Required: No Beliefs That Will Affect Care: None marital status: / Current Living Situation: Alone Current Living Situation Comment: Private Home Alone current occupational status: retired Feels Safe at Home: Yes Childhood Exposure to Second-Hand Smoke: No Diet: regular Diet Comment: regular caffeine: Yes during the past year weight has: remained stable Dental Care, Regularly: Yes Physical Activity Frequency: Daily Physical Activity Frequency Comment: walk, outside work Seatbelt Use: always Sunscreen Use: No Assistive Devices: Glasses Review of Systems Review of Systems: See HPI above Physical Exam Physical Exam: General: no acute distress; pleasant affect; non-toxic appearing; well- nourished; cooperative; SpO2 97% on RA HEENT: normocephalic, atraumatic; no scleral icterus; PERRLA w/ EOMs intact; moist mucus membrane; vision and hearing intact Neck: supple; no lymphadenopathy; trachea midline Skin: warm, dry without signs of tenting; no cyanosis; no rashes, bruising, lesions, or erythema noted CV: chest wall NTP; irregularly irregular rhythm, tachycardic around 120 bpm; S1/S2 normal; no murmurs/rubs/gallops; pulses intact and symmetric at radial, DP, and PT Lungs: no acute respiratory distress; symmetrical chest wall expansion; clear breath sounds across all lung lake w/o adventitious sounds; no wheezing ABD: Soft, NTP; BS present; no rebound/guarding; no distention; purple bruising on the right upper quadrant MSK: no tics or fasciculations; +1 pitting edema edema noted in the LEs b/l extending to the mid calves, nonerythematous Neuro: A&Ox3; normal mood and affect; fluent speech; no focal deficits; sensation intact and symmetric in the LEs b/l Results & Data Results & Data Vital Signs (Past 12 Hours) Vital Signs Temp Pulse Pulse Resp BP BP BP 03/30/24 15:53 95/80 L 03/30/24 15:47 120 H 100/77 03/30/24 15:46 120 H 20 100/77 03/30/24 15:29 119 H 20 86/68 L 03/30/24 15:04 134 H 21 94/76 L 03/30/24 14:24 114 H 03/30/24 14:18 03/30/24 14:02 36.9 C 126 H 14 109/85 Pulse Ox O2 Del Method 03/30/24 15:53 03/30/24 15:47 03/30/24 15:46 97 Room Air 03/30/24 15:29 98 Room Air 03/30/24 15:04 94 Room Air 03/30/24 14:24 03/30/24 14:18 Room Air 03/30/24 14:02 94 Room Air Laboratory Results Abnormal lab results 03/30/24 Range/Units 13:05 RBC 3.59 L (4.70-6.10) M/uL Hgb 11.3 L (14.0-18.0) g/dl Hct 35.2 L (42.0-52.0) % RDW Std Deviation 47.4 H (36.4-46.3) fL [place] # (Auto) 0.90 H (0.11-0.59) K/uL PT 13.0 H (9.0-12.0) Seconds INR 1.2 H (0.9-1.1) APTT 32 H (21-31) Seconds BUN 33 H (6-23) mg/dl Creatinine 1.83 H (0.6-1.4) mg/dl Glucose 133 H (70-99(Fasting)) mg/dl Calcium 8.5 L (8.6-10.3) mg/dl Troponin I High Sens 2385.6 H* (0-20) pg/ml Albumin 3.3 L (3.4-5.0) gm/dl Diagnostic Findings Chest X-Ray 03/30/24 14:12 XR chest 1V portable HISTORY: tachycardia COMPARISON: Chest 03/16/2024. FINDINGS: No pneumothorax. The cardiac silhouette remains mildly enlarged. There is mild pulmonary edema and small bilateral pleural effusions. This is improved. Bibasilar airspace opacities are again noted. Calcifications within the aortic knob. No acute fractures. IMPRESSION: 1. Cardiomegaly with mild interstitial pulmonary edema and small bilateral ple ural effusions. This has improved. 2. Bibasilar densities persist and may represent a superimposed pneumonia. ACT 112: Negative or not required by law. Electronically signed by: Medardo Woodall M.D. 03/30/2024 3:15 PM ECG Additional Comments: ECG revealed atrial fibrillation at 140 bpm; QTc 418 Code Status & VTE Plan Code Status Full code VTE Prophylaxis Plan VTE Prophylaxis will be ordered: Yes Supervising Physician Co-Signing Physician Notes 88-year-old male who was recently admitted to the hospital with ischemic cardiomyopathy, worsening kidney function, atrial fibrillation, he did not have a cardiac cath secondary to worsening kidney function, denies any chest pain today, presents with severe diarrhea, since he left the hospital, he is tachycardic, in A-fib with RVR, was given IV fluids, Lopressor, denies abdominal pain, denies shortness of breath, fever or chills Will admit him to telemetry IV fluids Will check stool for C. difficile Start him on empiric treatment for C. 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 A-fib with RVR Continue low-dose metoprolol, avoid hypotension Chronic kidney disease stage III monitor BMP, hydration PG Care Time/CCT Total # of Minutes Spent Total Time Spent with Patient: Total time spent is greater than 50% in coordination of care (as documented) at patient's floor/unit and/or counseling patient: Coding [place] [address] INT INP/OBS CARE 3/75MIN Patient Type Established History Comprehensive Exam Comprehensive Medical Decision Making High Complexity Diagnoses Diarrhea R19.7 NSTEMI (non-ST elevated myocardial infarction) I21.4 History of non-ST elevation myocardial infarction (NSTEMI) I25.2 Atrial fibrillation with RVR I48.91 HFrEF (heart failure with reduced ejection fraction) I50.20 Chronic kidney disease N18.9 Elevated troponin R79.89
[2024-03-30] MEDS ORDERED: Heparin IV Adult Wt-Based Low-Dose *NO* INITIAL Bolus Protocol IV SCH (16:58)
[2024-03-30 17:06] LABS: Troponin I High Sensitivity 3448.8 pg/ml (0-20)
--- NOTE | 2024-03-30 17:08 | Emergency Department Note ---
History of Present Illness General Chief complaint: Diarrhea Stated complaint: ILLNESS Time Seen by Provider: 03/30/24 14:53 History of Present Illness Provider complaint: Diarrhea Onset (ago): day(s) 2 88-year-old male presents emergency department for diarrhea. Patient reports that he was recently discharged from rehab facility and since being home for the last 2 days has been having diarrhea. No melena or hematochezia. No abdominal pain. No fevers. No chest pain or difficulty breathing. Patient reports he feels very weak. Home Medications Medication Instructions Recorded Confirmed Type vitamin E (dl, acetate) 450 mg 1,000 units PO 3XWK #30 caps 01/12/20 03/30/24 Rx (1,000 unit) capsule mecobalamin (vitamin B12) 1,000 1,000 mcg PO DAILY 12/09/23 03/30/24 History mcg chewable tablet pantoprazole 40 mg tablet,delayed 40 mg PO DAILY #90 tabs 02/02/24 03/30/24 Rx release terazosin 5 mg capsule 5 mg PO DAILY #90 caps 02/16/24 03/30/24 Rx sertraline 25 mg tablet 25 mg PO DAILY 03/11/24 03/30/24 History telmisartan 20 mg tablet 0 mg PO DAILY 03/11/24 03/30/24 History apixaban 2.5 mg tablet (Eliquis) 2.5 mg PO BID 30 days #60 tabs 03/19/24 03/30/24 Rx clopidogrel 75 mg tablet 75 mg PO QAM 30 days #30 tabs 03/19/24 03/30/24 Rx furosemide 20 mg tablet (Lasix) 20 mg PO DAILY #30 tabs 03/19/24 03/30/24 Rx metoprolol succinate 50 mg 50 mg PO QAM 30 days #30 tabs 03/19/24 03/30/24 Rx tablet,extended release 24 hr Allergies Allergy/AdvReac Type Severity Reaction Status Date / Time Penicillins AdvReac Hives Verified 03/11/24 12:32 Past Med/Surg History Problem List (Updated 03/30/24 @ 17:17 by Bruno Hayward MD) Elevated troponin (Acute) Diarrhea (Acute) HFrEF (heart failure with reduced ejection fraction) History of non-ST elevation myocardial infarction (NSTEMI) Diarrhea Atrial fibrillation with RVR (Acute) PAF (paroxysmal atrial fibrillation) Abnormal ultrasound of abdomen Multiple ectopic atrial beats Cardiomyopathy Chronic kidney disease Acute kidney injury Acute systolic (congestive) heart failure Elevated troponin Supraventricular tachycardia Acute non-ST elevation myocardial infarction (NSTEMI) (Acute) Pulmonary edema (Acute) Anxiety and depression Impaired glucose metabolism Elevated PSA (Chronic) 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) Hiatal hernia with GERD (Chronic) HTN (hypertension) (Chronic) Surgical History S/P adenoidectomy 1944 S/P tonsillectomy 1944 Family History Father Cardiac disorder Hypertension Myocardial infarction, Onset Age: 69 Brother Cardiac disorder Hypertension Denies family history of Ovarian cancer Prostate cancer Breast cancer Lung cancer Colorectal cancer Social History Smoking Status: Former smoker Tobacco Type: Cigarettes and Cigars Second Hand Exposure: No; Do You Dip or Chew Tobacco: No; Hx Alcohol Use: No Hx Substance Use: No Preferred Language: Slovenian Communication Ability: Effective Visual Impairment: No Limitations Hearing Ability: Hard of Hearing Bulk Coolers Installer Required: No Beliefs That Will Affect Care: None marital status: / Current Living Situation: Alone Current Living Situation Comment: Private Home Alone current occupational status: retired Feels Safe at Home: Yes Childhood Exposure to Second-Hand Smoke: No Diet: regular Diet Comment: regular caffeine: Yes during the past year weight has: remained stable Dental Care, Regularly: Yes Physical Activity Frequency: Daily Physical Activity Frequency Comment: walk, outside work Seatbelt Use: always Sunscreen Use: No Assistive Devices: None Physical Exam Vital Signs Vital Signs - 24 hr 03/30/24 14:02 03/30/24 14:18 03/30/24 14:24 Temperature 36.9 C Temperature Source Oral Pulse Rate 126 H 114 H Pulse Rate [Apical] Pulse Rhythm Irregular Pulse Rhythm [Apical] Respiratory Rate 14 Respiratory Effort / Characteristics Respiratory Depth Blood Pressure 109/85 Blood Pressure [Left Arm] Blood Pressure [Right Arm] Blood Pressure Mean 93 Blood Pressure Mean [Left Arm] Blood Pressure Mean [Right Arm] Blood Pressure Position [Left Arm] Blood Pressure Position [Right Arm] Pulse Oximetry 94 Oxygen Delivery Method Room Air Room Air Sepsis New/Unexplained Change in Mental Status No Sepsis Action Taken by Nursing No Action Required 03/30/24 15:04 03/30/24 15:29 03/30/24 15:46 Temperature Temperature Source Pulse Rate Pulse Rate [Apical] 134 H 119 H 120 H Pulse Rhythm Pulse Rhythm [Apical] Irregular Irregular Irregular Respiratory Rate 21 20 20 Respiratory Effort / Characteristics Non-Labored Non-Labored Respiratory Depth Normal Normal Blood Pressure Blood Pressure [Left Arm] 94/76 L 86/68 L 100/77 Blood Pressure [Right Arm] Blood Pressure Mean Blood Pressure Mean [Left Arm] 82 74 84 Blood Pressure Mean [Right Arm] Blood Pressure Position [Left Arm] Lying Blood Pressure Position [Right Arm] Pulse Oximetry 94 98 97 Oxygen Delivery Method Room Air Room Air Room Air Sepsis New/Unexplained Change in Mental Status Sepsis Action Taken by Nursing 03/30/24 15:47 03/30/24 15:53 Temperature Temperature Source Pulse Rate 120 H Pulse Rate [Apical] Pulse Rhythm Pulse Rhythm [Apical] Respiratory Rate Respiratory Effort / Characteristics Respiratory Depth Blood Pressure 100/77 Blood Pressure [Left Arm] Blood Pressure [Right Arm] 95/80 L Blood Pressure Mean Blood Pressure Mean [Left Arm] Blood Pressure Mean [Right Arm] 85 Blood Pressure Position [Left Arm] Blood Pressure Position [Right Arm] Lying Pulse Oximetry Oxygen Delivery Method Sepsis New/Unexplained Change in Mental Status Sepsis Action Taken by Nursing Physical Exam HENT: Exam performed. - Head: Normocephalic and atraumatic. CV: Tachycardic rate, irregular rhythm, normal heart sounds and intact distal pulses. There is no peripheral edema. Palpable radial pulses bue. PULM/CHEST: Effort normal and breath sounds normal. No respiratory distress. No stridor. He has no wheezes. He has no rales. ABD: The abdomen is soft. There is no tenderness. There is no rebound, no guarding NEURO: Motor and sensation grossly intact. Course Course 1453: The patient was evaluated in room A10. A complete history and physical exam was performed Cardiac monitoring: An order was placed for continuous cardiac monitoring. The monitor shows a rate of 110-160 with atrial fibrilation rhythm interpreted by me Patient has A-fib RVR and was given a 500 cc bolus prior to my right arrival in the room. Patient is on metoprolol we will give small dose of metoprolol to see if the patient's ventricular rate gets better. 1517: Status post metoprolol 2.5 mg the patient's blood pressure decreased. IV fluid bolus was ordered. 1545: Patient's blood pressure improved after 2 more normal saline boluses total of 750 cc. Patient's heart rate between 100-120 and atrial fibrillation. 1605: Vital signs stable. Patient's labs show normal white blood cell count. Creatinine 1.83. High-sensitivity troponin 2385.6. Patient not reporting any chest pain or difficulty breathing. Patient has been unable to give stool sample in the emergency department. [facility]. Administered Medications Discontinued Medications Sodium Chloride (Nss) 500 mls @ 999 mls/hr IV .Q31M ONE Stop: 03/30/24 14:43 Last Infusion: 03/30/24 14:46 Dose: Infused Documented By: Admin: 03/30/24 14:14 Dose: 999 mls/hr Documented By: SAROJ Sodium Chloride (Nss) 250 mls @ 999 mls/hr IV .Q16M ONE Stop: 03/30/24 15:32 Last Infusion: 03/30/24 15:45 Dose: Infused Documented By: Admin: 03/30/24 15:19 Dose: 999 mls/hr Documented By: ARNOLD Sodium Chloride (Nss) 500 mls @ 999 mls/hr IV .Q31M ONE Stop: 03/30/24 16:07 Last Infusion: 03/30/24 16:26 Dose: Infused Documented By: Admin: 03/30/24 15:53 Dose: 999 mls/hr Documented By: ARNOLD Metoprolol Tartrate (Metoprolol Tartrate 1 Mg/Ml Vial) 5 mg IV NOW STA Stop: 03/30/24 15:00 Last Admin: 03/30/24 15:14 Dose: 2.5 mg Documented By: ARNOLD Medical Decision Making Laboratory Data Attestation: I reviewed the patient's lab results. 03/30/24 13:05 03/30/24 13:05 Lab Results 03/30/24 03/30/24 Range/Units 13:05 16:17 WBC 8.92 (4.8-10.8) K/ul RBC 3.59 L (4.70-6.10) M/uL Hgb 11.3 L (14.0-18.0) g/dl Hct 35.2 L (42.0-52.0) % MCV 98.1 (80.0-100.0) fL MCH 31.5 (25.0-34.0) pg MCHC 32.1 (32.0-36.0) g/dL RDW Std Deviation 47.4 H (36.4-46.3) fL RDW Coeff of Kahlil 13.3 (11.5-14.5) % Plt Count 193 (130-400) K/uL MPV 11.9 (9.4-12.4) fL Immature Gran % (Auto) 0.4 % Neut % (Auto) 72.6 % Lymph % (Auto) 15.0 % Cabell % (Auto) 10.1 % Eos % (Auto) 1.3 % Baso % (Auto) 0.6 % Neut # (Auto) 6.47 (1.40-6.50) K/uL Lymph # (Auto) 1.34 (1.20-3.40) K/uL Cabell # (Auto) 0.90 H (0.11-0.59) K/uL Eos # (Auto) 0.12 (0.00-0.50) K/uL Baso # (Auto) 0.05 (0.00-0.20) K/uL Immature Gran # (Auto) 0.04 (0.01-0.20) K/uL PT 13.0 H (9.0-12.0) Seconds INR 1.2 H (0.9-1.1) APTT 32 H (21-31) Seconds PTT Ratio 1.2 Sodium 136 (136-145) mmol/L Potassium 4.0 (3.5-5.1) mmol/L Chloride 106 (98-107) mmol/L Carbon Dioxide 21 (21-32) mmol/L Anion Gap 9 (3-11) BUN 33 H (6-23) mg/dl Creatinine 1.83 H (0.6-1.4) mg/dl Est Cr Clr Drug Dosing 30.2 ml/min Est GFR ( Amer) 37.6 ml/min Est GFR (Non-Af Amer) 32.4 ml/min BUN/Creatinine Ratio 18.0 (10-20) Glucose 133 H (70-99(Fasting)) mg/dl Calcium 8.5 L (8.6-10.3) mg/dl Total Bilirubin 0.7 (0.2-1.0) mg/dl AST 18 (13-39) U/L ALT 8 (7-52) U/L Alkaline Phosphatase 56 (34-104) U/L Troponin I High Sens 2385.6 H* 3448.8 H* D (0-20) pg/ml Total Protein 6.7 (6.0-8.3) gm/dl Albumin 3.3 L (3.4-5.0) gm/dl Globulin 3.4 (2.5-4.0) gm/dl Albumin/Globulin Ratio 1.0 (0.9-2) Imaging Data Radiologist's Impression: Chest X-Ray 03/30/24 14:12 XR chest 1V portable HISTORY: tachycardia COMPARISON: Chest 03/16/2024. FINDINGS: No pneumothorax. The cardiac silhouette remains mildly enlarged. There is mild pulmonary edema and small bilateral pleural effusions. This is improved. Bibasilar airspace opacities are again noted. Calcifications within the aortic knob. No acute fractures. IMPRESSION: 1. Cardiomegaly with mild interstitial pulmonary edema and small bilateral pleural effusions. This has improved. 2. Bibasilar densities persist and may represent a superimposed pneumonia. ACT 112: Negative or not required by law. Electronically signed by: Medardo Woodall M.D. 03/30/2024 3:15 PM ECG Data Attestation: I personally reviewed and interpreted this ECG as follows: Rate (beats per minute): 140 Rhythm: + atrial fibrillation ECG Intervals/blocks: + Normal QRS and + Normal QT-c ECG ST segments: + Normal ST segments [facility] Narrative 1453: The patient was evaluated in room A10. A complete history and physical exam was performed Cardiac monitoring: An order was placed for continuous cardiac monitoring. The monitor shows a rate of 110-160 with atrial fibrilation rhythm interpreted by me Patient has A-fib RVR and was given a 500 cc bolus prior to my right arrival in the room. Patient is on metoprolol we will give small dose of metoprolol to see if the patient's ventricular rate gets better. 1517: Status post metoprolol 2.5 mg the patient's blood pressure decreased. IV fluid bolus was ordered. 1545: Patient's blood pressure improved after 2 more normal saline boluses total of 750 cc. Patient's heart rate between 100-120 and atrial fibrillation. 1605: Vital signs stable. Patient's labs show normal white blood cell count. Creatinine 1.83. High-sensitivity troponin 2385.6. Patient not reporting any chest pain or difficulty breathing. Patient has been unable to give stool sample in the emergency department. Patient [facility] be admitted to the [facility] hospitalist team. Impression & Plan Atrial fibrillation with RVR, Diarrhea, Elevated troponin Discharge Plan Visit Data Chief Complaint: Diarrhea Stated Complaint: ILLNESS ED Provider: Bruno Hayward Discharge Problem: Atrial fibrillation with RVR, Diarrhea, Elevated troponin Patient Disposition: Admitted As Inpatient Forms Stand Alone Forms: My [facility] Prescriptions Prescriptions: No Action pantoprazole 40 mg tablet,delayed release (DR/EC) 40 mg PO DAILY Qty: 90 1RF terazosin 5 mg capsule 5 mg PO DAILY Qty: 90 3RF vitamin E (dl, acetate) 1,000 unit capsule 1,000 units PO 3XWK Qty: 30 0RF Rx Instructions: Unable to verify OTC meds at this date/time. mecobalamin (vitamin B12) 1,000 mcg tablet,chewable 1,000 mcg PO DAILY sertraline 25 mg tablet 25 mg PO DAILY telmisartan 20 mg tablet 0 mg PO DAILY Hold Instructions: Resume on 04/02/24. Do not resume until you see your scheduling administrator Rx Instructions: Unable to verify w/ pt at this date/time. Last filled 12/2023 x30 day supply. Original Directions: 20mg by mouth once daily metoprolol succinate 50 mg Tablet Extended Release 24 Hr 50 mg PO QAM 30 Days Qty: 30 0RF clopidogrel 75 mg Tablet 75 mg PO QAM 30 Days Qty: 30 0RF Eliquis 2.5 mg Tablet 2.5 mg PO BID 30 Days Qty: 60 0RF furosemide [Lasix] 20 mg tablet 20 mg PO DAILY Qty: 30 0RF Referrals Referrals: Gabino Weaver CRNP [Primary Care Provider] -
[2024-03-30 17:20] LABS: Magnesium 1.7 mg/dl (1.7-2.4)
[2024-03-30] MEDS: HEPARIN SODIUM/DEXTROSE 25,000 UNITS/500 ML BAG IV SCH (17:26)
[2024-03-30 17:30] LABS: Thyroid Stimulating Hormone 2.763 uIu/ml (0.300-4.500)
[2024-03-30] MEDS ORDERED: ONDANSETRON INJ 2 MG/ML 2 ML VIAL IV PRN (17:56)
[2024-03-30] MEDS ORDERED: ACETAMINOPHEN 325 MG TAB PO PRN (17:56)
[2024-03-30] MEDS: VANCOMYCIN HCL 125 MG/2.5ML SOLN PO SCH (19:08)
[2024-03-30] MEDS: CHERRY SYRUP 5 ML UDP PO SCH (19:09)
[2024-03-30] MEDS: MAGNESIUM SULFATE / D5W 1 GM/100 ML BAG IV SCH (20:02)
[2024-03-30 22:36] LABS: BUN Creatinine Ratio 18.6 (10-20); Calcium 8.4 mg/dl (8.6-10.3); Creatinine Clr Calc Pharmacy 32.5 ml/min; Est GFR (African American) 40.5 ml/min; Potassium 3.8 mmol/L (3.5-5.1)
[2024-03-30 22:44] LABS: Troponin I High Sensitivity 4583.6 pg/ml (0-20)
[2024-03-30] MEDS: POTASSIUM CHLORIDE CRTAB 20 MEQ TABCR PO ONE (23:30)
[2024-03-31 00:49] LABS: ANTI-Xa, UFH(UnfractionatedHep 1.23 IU/ml (0.3-0.7)
[2024-03-31 03:37] LABS: Basophils # (auto) 0.07 K/uL (0.00-0.20); Basophils % (auto) 0.8 %; Eosinophils # (auto) 0.19 K/uL (0.00-0.50); Eosinophils % (auto) 2.2 %; Hematocrit (blood only) 32.8 % (42.0-52.0); Hemoglobin 10.7 g/dl (14.0-18.0); Immature Granulocytes # (auto) 0.05 K/uL (0.01-0.20); Immature Granulocytes % (auto) 0.6 %; Lymphocytes # (auto) 1.45 K/uL (1.20-3.40); Lymphocytes % (auto) 16.6 %; Mean Corpuscular Hemoglobin 31.8 pg (25.0-34.0); Mean Corpuscular Hgb Conc 32.6 g/dL (32.0-36.0); Mean Corpuscular Volume 97.3 fL (80.0-100.0); Mean Platelet Volume 11.5 fL (9.4-12.4); Monocytes # (auto) 0.87 K/uL (0.11-0.59); Neutrophils # (auto) 6.09 K/uL (1.40-6.50); Neutrophils % (auto) 69.8 %; Nucleated RBC # (auto) 0.02 K/uL (0.00-0.12); Nucleated RBC % (auto) 0.2 %; Platelet Count 172 K/uL (130-400); RDW Coefficient of Variation 13.3 % (11.5-14.5); RDW Standard Deviation 47.7 fL (36.4-46.3); Red Blood Count 3.37 M/uL (4.70-6.10); White Blood Count 8.72 K/ul (4.8-10.8)
[2024-03-31 03:54] LABS: BUN Creatinine Ratio 17.8 (10-20); Calcium 8.5 mg/dl (8.6-10.3); Creatinine Clr Calc Pharmacy 33.1 ml/min; Est GFR (African American) 41.4 ml/min; Est GFR (Non-African American) 35.7 ml/min; Magnesium 2.1 mg/dl (1.7-2.4); Potassium 4.3 mmol/L (3.5-5.1)
[2024-03-31 04:26] LABS: ANTI-Xa, UFH(UnfractionatedHep 0.95 IU/ml (0.3-0.7)
[2024-03-31 06:20] LABS: ANTI-Xa, UFH(UnfractionatedHep 0.91 IU/ml (0.3-0.7)
--- OUTSIDE RECORDS SUMMARY | 2024-03-31 07:07 | External Medical Summary | Continuity Of Care Document ---
Author Name Unknown Address [address] [place] [address] Organization [facility] ( ) Care Team Providers Care Wool Shearer Name Role Phone Edvin Samuels Primary Care Provider [phone] Problems Code Description Start Date End Date Status I48.91 Unspecified atrial fibrillation 03/20/2024 00/0 Active I50.9 Heart failure, unspecified 03/20/202400/000 0 Active N40.1 Benign prostatic hyp erplasia with lower urinary tract symptoms 03/20/2024 Active I10. Essential (primary) hypertension 03/20/2024 Active I21.4 Non-ST elevation (NSTEMI) myocardial infarction 03/20/2024 Active VITAL SIGNS Date Time Diastolic blood pressure Systolic blood pressure Body height Body weight Temperature SpO2 Blood Sugar Pulse Respirations 622 46800 8 23236 622 93144 0 62.00 mm[Hg] - Sitting 96.00 mm[Hg] - Sitting 68 NI 194.00 NI 98.20 Oral 92.00 % 65.00/ min 18.00/min 26059 622 19011 9 68 NI 21210 623 49697 7 193.00 NI 68273 623 93255 2 70.00 mm[Hg] - Sitting 105.00 mm[Hg] - Sitting 97.90 Oral 93.00 % 59.00/ min 20.00/min 35365 624 09208 0 70.00 mm[Hg] - Sitting 105.00 mm[Hg] - Sitting 97.90 Ear 59.00/ min 20.00/min 89699 624 19346 0 68.00 mm[Hg] - Sitting 106.00 mm[Hg] - Sitting 98.90 Ear 94.00 % 81.00/ min 18.00/min 11724 625 69609 5 18290 625 67253 5 86.00 mm[Hg] - Sitting 115.00 mm[Hg] - Sitting 98.00 Ear 98.00 % 88.00/ min 18.00/min 22638 625 38410 7 193.00 NI 21573 625 32184 0 194.00 NI 48126 626 07828 8 76.00 mm[Hg] - Sitting 113.00 mm[Hg] - Sitting 97.40 Ear 97.00 % 84.00/ min 20.00/min 17529 627 12751 8 194.00 NI 26708 627 27664 7 59.00 mm[Hg] - Sitting 88.00 mm[Hg] - Sitting 97.30 Ear 94.00 % 85.00/ min 18.00/min 50000 628 63912 5 197.00 NI 21073 628 82381 4 71.00 mm[Hg] - Sitting 122.00 mm[Hg] - Sitting 98.50 Ear 94.00 % 93.00/ min 18.00/min 71676 629 91600 0 196.00 NI 82930 629 07489 8 58.00 mm[Hg] - Sitting 95.00 mm[Hg] - Sitting 97.80 Ear 92.00 % 93.00/ min 18.00/min 45091 629 81071 9 196.00 NI 85256 630 84680 9 196.00 NI 84639 630 72950 2 74.00 mm[Hg] - Sitting 116.00 mm[Hg] - Sitting 97.70 Ear 92.00 % 74.00/ min 20.00/min
--- OUTSIDE RECORDS SUMMARY | 2024-03-31 07:07 | External Medical Summary | Continuity Of Care Document ---
Author Name Unknown Address [address] [place] [address] Organization [facility] ( ) Care Team Providers Care Bin Tripper Operator Name Role Phone Edvin Samuels Primary Care Provider [phone] Problems Code Description Start Date End Date Status I48.91 Unspecified atrial fibrillation 03/20/2024 00/0 Active I50.9 Heart failure, unspecified 03/20/2024 00/00/000 0 Active N40.1 Benign prostatic hyp erplasia with lower urinary tract symptoms 03/20/2024 Active I10. Essential (primary) hypertension 03/20/2024 00/ Active VITAL SIGNS Date Time Diastolic blood pressure Systolic blood pressure Body height Body weight Temperature SpO2 Blood Sugar Pulse Respirations 622 69713 8 26741 622 75772 0 62.00 mm[Hg] - Sitting 96.00 mm[Hg] - Sitting 68 NI 194.00 NI 98.20 Oral 92.00 % 65.00/ min 18.00/min 09545 622 81689 9 68 NI 60895 623 13995 7 193.00 NI 90996 623 48804 2 70.00 mm[Hg] - Sitting 105.00 mm[Hg] - Sitting 97.90 Oral 93.00 % 59.00/ min 20.00/min 92406 624 78793 0 70.00 mm[Hg] - Sitting 105.00 mm[Hg] - Sitting 97.90 Ear 59.00/ min 20.00/min 32247 624 68045 0 68.00 mm[Hg] - Sitting 106.00 mm[Hg] - Sitting 98.90 Ear 94.00 % 81.00/ min 18.00/min 36299 625 63069 5 01689 625 30472 5 86.00 mm[Hg] - Sitting 115.00 mm[Hg] - Sitting 98.00 Ear 98.00 % 88.00/ min 18.00/min 75850 625 90912 7 193.00 NI 61186 625 97665 0 194.00 NI 44428 626 48251 8 76.00 mm[Hg] - Sitting 113.00 mm[Hg] - Sitting 97.40 Ear 97.00 % 84.00/ min 20.00/min 88082 627 59023 8 194.00 NI 79354 627 92944 7 59.00 mm[Hg] - Sitting 88.00 mm[Hg] - Sitting 97.30 Ear 94.00 % 85.00/ min 18.00/min 78083 628 53534 5 197.00 NI 86900 628 03039 4 71.00 mm[Hg] - Sitting 122.00 mm[Hg] - Sitting 98.50 Ear 94.00 % 93.00/ min 18.00/min 59884 629 22415 0 196.00 NI 92101 629 58700 8 58.00 mm[Hg] - Sitting 95.00 mm[Hg] - Sitting 97.80 Ear 92.00 % 93.00/ min 18.00/min 83077 629 28965 9 196.00 NI 20035 630 29836 9 196.00 NI 63503 630 35406 2 74.00 mm[Hg] - Sitting 116.00 mm[Hg] - Sitting 97.70 Ear 92.00 % 74.00/ min 20.00/min
--- OUTSIDE RECORDS SUMMARY | 2024-03-31 07:07 | External Medical Summary | Continuity Of Care Document ---
Author Name Unknown Address [address] [place] [address] Organization [facility] ( ) Care Team Providers Care Auto Vinyl Top Installer Name Role Phone Jalen Samuelsgee Primary Care Provider [phone] VITAL SIGNS Date Time Diastolic blood pressure Systolic blood pressure Body height Body weight Temperature SpO2 Blood Sugar Pulse Respirations 66164 622 67027 8 93765 622 42852 0 62.00 mm[Hg] - Sitting 96.00 mm[Hg] - Sitting 68 NI 194.00 NI 98.20 Oral 92.00 % 65.00/ min 18.00/min 62888 622 44754 9 68 NI 88794 623 27918 7 193.00 NI 45267 623 37556 2 70.00 mm[Hg] - Sitting 105.00 mm[Hg] - Sitting 97.90 Oral 93.00 % 59.00/ min 20.00/min 08590 624 60021 0 70.00 mm[Hg] - Sitting 105.00 mm[Hg] - Sitting 97.90 Ear 59.00/ min 20.00/min 21646 624 91376 0 68.00 mm[Hg] - Sitting 106.00 mm[Hg] - Sitting 98.90 Ear 94.00 % 81.00/ min 18.00/min 46424 625 34941 5 70119 625 21809 5 86.00 mm[Hg] - Sitting 115.00 mm[Hg] - Sitting 98.00 Ear 98.00 % 88.00/ min 18.00/min 69852 625 68768 7 193.00 NI 00101 625 53106 0 194.00 NI 39688 626 69642 8 76.00 mm[Hg] - Sitting 113.00 mm[Hg] - Sitting 97.40 Ear 97.00 % 84.00/ min 20.00/min 36874 627 03467 8 194.00 NI 37741 627 97942 7 59.00 mm[Hg] - Sitting 88.00 mm[Hg] - Sitting 97.30 Ear 94.00 % 85.00/ min 18.00/min 18160 628 21844 5 197.00 NI 55935 628 17572 4 71.00 mm[Hg] - Sitting 122.00 mm[Hg] - Sitting 98.50 Ear 94.00 % 93.00/ min 18.00/min 08361 629 99180 0 196.00 NI 92210 629 16939 8 58.00 mm[Hg] - Sitting 95.00 mm[Hg] - Sitting 97.80 Ear 92.00 % 93.00/ min 18.00/min 96222 629 37390 9 196.00 NI 35929 630 07568 9 196.00 NI 23263 630 95696 2 74.00 mm[Hg] - Sitting 116.00 mm[Hg] - Sitting 97.70 Ear 92.00 % 74.00/ min 20.00/min
--- OUTSIDE RECORDS SUMMARY | 2024-03-31 07:07 | External Medical Summary | Continuity Of Care Document ---
Author Name Unknown Address [address] [place] [address] Organization [facility] ( ) Care Team Providers Care Coach Professional Athletes Name Role Phone Edvin Samuels Primary Care Provider [phone] VITAL SIGNS Date Time Diastolic blood pressure Systolic blood pressure Body height Body weight Temperature SpO2 Blood Sugar Pulse Respirations 53245 622 25536 8 19094 622 37138 0 62.00 mm[Hg] - Sitting 96.00 mm[Hg] - Sitting 68 NI 194.00 NI 98.20 Oral 92.00 % 65.00/ min 18.00/min 44074 622 78926 9 68 NI 65355 623 51022 7 193.00 NI 42162 623 13303 2 70.00 mm[Hg] - Sitting 105.00 mm[Hg] - Sitting 97.90 Oral 93.00 % 59.00/ min 20.00/min
--- OUTSIDE RECORDS SUMMARY | 2024-03-31 07:07 | External Medical Summary | Continuity Of Care Document ---
Author Name Unknown Address [address] [place] [address] Organization [facility] ( ) Care Team Providers Care Radio Mechanic Apprentice Name Role Phone Jalen Samuelsgee Primary Care Provider [phone] VITAL SIGNS Date Time Diastolic blood pressure Systolic blood pressure Body height Body weight Temperature SpO2 Blood Sugar Pulse Respirations 01189 622 61726 8 99026 622 60309 0 62.00 mm[Hg] - Sitting 96.00 mm[Hg] - Sitting 68 NI 194.00 NI 98.20 Oral 92.00 % 65.00/ min 18.00/min 72707 622 92188 9 68 NI 02399 623 68081 7 193.00 NI 37809 623 11392 2 70.00 mm[Hg] - Sitting 105.00 mm[Hg] - Sitting 97.90 Oral 93.00 % 59.00/ min 20.00/min 64489 624 15121 0 70.00 mm[Hg] - Sitting 105.00 mm[Hg] - Sitting 97.90 Ear 59.00/ min 20.00/min 05956 624 22159 0 68.00 mm[Hg] - Sitting 106.00 mm[Hg] - Sitting 98.90 Ear 94.00 % 81.00/ min 18.00/min 69730 625 05798 5 05312 625 61837 5 86.00 mm[Hg] - Sitting 115.00 mm[Hg] - Sitting 98.00 Ear 98.00 % 88.00/ min 18.00/min 12268 625 07857 7 193.00 NI 55956 625 00180 0 194.00 NI 55582 626 00413 8 76.00 mm[Hg] - Sitting 113.00 mm[Hg] - Sitting 97.40 Ear 97.00 % 84.00/ min 20.00/min 36696 627 08336 8 194.00 NI 85916 627 03183 7 59.00 mm[Hg] - Sitting 88.00 mm[Hg] - Sitting 97.30 Ear 94.00 % 85.00/ min 18.00/min 33035 628 63370 5 197.00 NI 64194 628 94669 4 71.00 mm[Hg] - Sitting 122.00 mm[Hg] - Sitting 98.50 Ear 94.00 % 93.00/ min 18.00/min 89224 629 89690 0 196.00 NI 05754 629 34553 8 58.00 mm[Hg] - Sitting 95.00 mm[Hg] - Sitting 97.80 Ear 92.00 % 93.00/ min 18.00/min 19158 629 97658 9 196.00 NI 29338 630 89521 9 196.00 NI 78165 630 02825 2 74.00 mm[Hg] - Sitting 116.00 mm[Hg] - Sitting 97.70 Ear 92.00 % 74.00/ min 20.00/min
--- OUTSIDE RECORDS SUMMARY | 2024-03-31 07:07 | External Medical Summary | Continuity Of Care Document ---
Author Name Unknown Address [address] [place] [address] Organization [facility] ( ) Care Team Providers Care Realtime Court Reporter Name Role Phone Abril Jalengee Primary Care Provider [phone] VITAL SIGNS Date Time Diastolic blood pressure Systolic blood pressure Body height Body weight Temperature SpO2 Blood Sugar Pulse Respirations 01808 622 77740 8 31404 622 09548 0 62.00 mm[Hg] - Sitting 96.00 mm[Hg] - Sitting 68 NI 194.00 NI 98.20 Oral 92.00 % 65.00/ min 18.00/min 98576 622 29140 9 68 NI 97724 623 16171 7 193.00 NI 49658 623 51438 2 70.00 mm[Hg] - Sitting 105.00 mm[Hg] - Sitting 97.90 Oral 93.00 % 59.00/ min 20.00/min 21615 624 93492 0 70.00 mm[Hg] - Sitting 105.00 mm[Hg] - Sitting 97.90 Ear 59.00/ min 20.00/min 06592 624 03399 0 68.00 mm[Hg] - Sitting 106.00 mm[Hg] - Sitting 98.90 Ear 94.00 % 81.00/ min 18.00/min 22171 625 56954 5 94188 625 83558 5 86.00 mm[Hg] - Sitting 115.00 mm[Hg] - Sitting 98.00 Ear 98.00 % 88.00/ min 18.00/min 21902 625 24825 7 193.00 NI 41381 625 92543 0 194.00 NI
--- OUTSIDE RECORDS SUMMARY | 2024-03-31 07:07 | External Medical Summary | Continuity Of Care Document ---
Author Name Unknown Address [address] [place] [address] Organization [facility] ( ) Care Team Providers Care Prenatal Nurse Name Role Phone Jalen Samuelsgee Primary Care Provider [phone] VITAL SIGNS Date Time Diastolic blood pressure Systolic blood pressure Body height Body weight Temperature SpO2 Blood Sugar Pulse Respirations 42967 622 41220 8 84386 622 48528 0 62.00 mm[Hg] - Sitting 96.00 mm[Hg] - Sitting 68 NI 194.00 NI 98.20 Oral 92.00 % 65.00/ min 18.00/min 27350 622 32059 9 68 NI 72703 623 98236 7 193.00 NI 82290 623 46368 2 70.00 mm[Hg] - Sitting 105.00 mm[Hg] - Sitting 97.90 Oral 93.00 % 59.00/ min 20.00/min 45482 624 91256 0 70.00 mm[Hg] - Sitting 105.00 mm[Hg] - Sitting 97.90 Ear 59.00/ min 20.00/min 44389 624 29732 0 68.00 mm[Hg] - Sitting 106.00 mm[Hg] - Sitting 98.90 Ear 94.00 % 81.00/ min 18.00/min 13521 625 34516 5 62289 625 90692 5 86.00 mm[Hg] - Sitting 115.00 mm[Hg] - Sitting 98.00 Ear 98.00 % 88.00/ min 18.00/min 68172 625 96636 7 193.00 NI 96888 625 49155 0 194.00 NI 70228 626 73233 8 76.00 mm[Hg] - Sitting 113.00 mm[Hg] - Sitting 97.40 Ear 97.00 % 84.00/ min 20.00/min 46570 627 71546 8 194.00 NI 29025 627 48672 7 59.00 mm[Hg] - Sitting 88.00 mm[Hg] - Sitting 97.30 Ear 94.00 % 85.00/ min 18.00/min 99029 628 80507 5 197.00 NI 08963 628 78707 4 71.00 mm[Hg] - Sitting 122.00 mm[Hg] - Sitting 98.50 Ear 94.00 % 93.00/ min 18.00/min 33687 629 25797 0 196.00 NI 87557 629 94162 8 58.00 mm[Hg] - Sitting 95.00 mm[Hg] - Sitting 97.80 Ear 92.00 % 93.00/ min 18.00/min 62823 629 07327 9 196.00 NI 53962 630 52643 9 196.00 NI 05456 630 41594 2 74.00 mm[Hg] - Sitting 116.00 mm[Hg] - Sitting 97.70 Ear 92.00 % 74.00/ min 20.00/min
--- OUTSIDE RECORDS SUMMARY | 2024-03-31 07:07 | External Medical Summary | Continuity Of Care Document ---
Author Name Unknown Address [address] [place] [address] Organization [facility] ( ) Care Team Providers Care Cartography/Mapping Technician Name Role Phone Edvin Samuels Primary Care Provider [phone] VITAL SIGNS Date Time Diastolic blood pressure Systolic blood pressure Body height Body weight Temperature SpO2 Blood Sugar Pulse Respirations 22991 622 28978 8 94248 622 28013 0 62.00 mm[Hg] - Sitting 96.00 mm[Hg] - Sitting 68 NI 194.00 NI 98.20 Oral 92.00 % 65.00/ min 18.00/min 73528 622 70839 9 68 NI 19522 623 46817 7 193.00 NI 64682 623 34324 2 70.00 mm[Hg] - Sitting 105.00 mm[Hg] - Sitting 97.90 Oral 93.00 % 59.00/ min 20.00/min
--- OUTSIDE RECORDS SUMMARY | 2024-03-31 07:08 | External Medical Summary | Continuity Of Care Document ---
Author Name Unknown Address [address] [place] [id number] Organization [facility] ( ) Care Team Providers Care Instructor Flying Name Role Phone Edvin Samuels Primary Care Provider [phone]
--- OUTSIDE RECORDS SUMMARY | 2024-03-31 07:08 | External Medical Summary | Continuity Of Care Document ---
Author Name Unknown Address [address] [place] [id number] Organization [facility] ( ) Care Team Providers Care Master Technician Name Role Phone Edvin Samuels Primary Care Provider [phone]
[2024-03-31 07:28] LABS: ANTI-Xa, UFH(UnfractionatedHep 0.89 IU/ml (0.3-0.7)
--- NOTE | 2024-03-31 07:41 | Hospitalist Progress Note ---
Date of Service March 31, 2024 Assessment & Plan (1) NSTEMI (non-ST elevated myocardial infarction): Plan: Troponin elevated at 2385-->4552 Pt has afib rvr so likely from demand ischemia, no current of injury on ECG and no chest pain Afib without optimal control, EKG with A-fib RVR at 140 bpm on arrival Patient became hypotensive at 95/80 after administration of Lopressor 2.5 mg IV in the ED Cardiology evaluation appreciated, Recent [place] hospitalization from 03/11 - 03/18 for suspected NSTEMI However cardiac cath was deferred due to rising creatinine level At this point in time patient wishes to pursue conservative management with the concern for renal decline after IV dye load. IV heparin will be discontinued escalation of medical management will be undertaken as long as blood pressure can tolerate increasing doses of medications. Patient is on metoprolol has not been on any antianginals or long-acting nitrates otherwise Continue ASA plus clopidogrel (2) HFrEF (heart failure with reduced ejection fraction): Plan: Echocardiogram on 03/11/24 with LVEF at 20-25% with severe hypokinesis Heart healthy, low-sodium diet Hold Lasix in the setting of hypotension (3) Diarrhea: Plan: Diarrhea that began on Tuesday 03/27 while at rehab Diarrhea has been reducing in volume and frequency C. difficile is resulted negative PCR for stool was also negative (4) Chronic kidney disease: Plan: Continue to hold telmisartan, [id number] Plan Full code Resume Eliquis therapy once IV heparin is stopped Admission and Anticipated Discharge Date Admission Date: March 30, 2024 Subjective pt has no chest pain or shortness of breath was sent in from home health with complaints of diarrhea, has not had voluminous output but 2 loose stools sent speaking with cardiology wants to pursue medical management Physical Exam Physical Exam: pt is with regular cardiac exam with systolic murmur lungs are clear abd is soft and non tender Results & Data Results & Data Vital Signs (Past 12 Hours) Vital Signs Temp Pulse Pulse Resp BP Pulse Ox O2 Del Method 03/31/24 02:03 97.5 F L 118 H 18 94/60 L 90 Room Air 03/30/24 22:39 94 H 03/30/24 22:31 97.7 F 88 18 93/62 L 95 Room Air 03/30/24 21:30 109 H 100/67 03/30/24 21:15 Room Air Laboratory Results Reviewed CBC Reviewed chemistry Reviewed troponin Personally discussed case with Dr. Wong PG Care Time/CCT Total # of Minutes Spent Total Time Spent with Patient: Total time spent is greater than 50% in coordination of care (as documented) at patient's floor/unit and/or counseling patient: Coding Level of Care Code 35605 SUB INP/OBS CARE 3/50MIN Diagnoses NSTEMI (non-ST elevated myocardial infarction) I21.4 HFrEF (heart failure with reduced ejection fraction) I50.20 Diarrhea R19.7 Chronic kidney disease N18.9
[2024-03-31 10:10] LABS: ANTI-Xa, UFH(UnfractionatedHep 0.82 IU/ml (0.3-0.7)
[2024-03-31] MEDS: PANTOprazole 40 MG TAB PO SCH (11:03)
[2024-03-31] MEDS: SERTRALINE HCL 50 MG TABLET PO SCH (11:03)
[2024-03-31] MEDS: TERAZOSIN HCL 5 MG CAP PO SCH (11:03)
[2024-03-31] MEDS: METOPROLOL SUCC 50MG EXT REL TAB PO SCH (11:04)
[2024-03-31] MEDS: CLOPIDOGREL BISULFATE 75 MG TAB PO SCH (11:05)
--- NOTE | 2024-03-31 11:38 | Cardiology Consultation ---
Date of Consultation March 31, 2024 Assessment & Plan (1) NSTEMI (non-ST elevated myocardial infarction): (2) HFrEF (heart failure with reduced ejection fraction): (3) PAF (paroxysmal atrial fibrillation): (4) Cardiomyopathy: (5) Chronic kidney disease: (6) Mitral regurgitation: Plan ASSESSMENT/PLAN: 1. NSTEMI: No angina. Presented with diarrhea rather than cardiac symptoms. Given no symptoms to suggest acute coronary syndrome, MS likely due to underlying CAD in the setting of A-fib with RVR causing some demand ischemia. We discussed this event and the fact that he had a myocardial infarction earlier this month. We discussed treatment options. Risks and benefits of cardiac catheterization were discussed with him in detail. He declines cardiac catheterization and prefers conservative management. Continue beta-tony. Can continue antiplatelet therapy. Continue anticoagulation. 2. Cardiomyopathy: Suspect ischemic in etiology. He declines cardiac catheterization. Recommend optimization of medical therapy. Once optimized, can repeat echo and if LV systolic function remains significantly reduced, could consider ICD for primary prevention. We discussed this. He repetitively said that he does not want heroic measures. He is not sure if he would want ICD if/when applicable. Continue metoprolol succinate. If blood pressure remains stable, would recommend low-dose Entresto tomorrow. He was hypotensive much of yesterday and given advanced age, would recommend cautious titration of medications. Monitor renal function closely with ARNI. Recommend spironolactone if blood pressure and renal function allows. This can be started later this hospital stay if able. No SGLT2 inhibitor for now given renal function and hypotension. May be able to revisit in the future if Entresto is tolerated. 3. Heart failure with reduced EF: Diagnosed earlier this month. He does not appear to be significantly hypervolemic today. Continue Lasix 20 mg p.o. daily. Start low-dose Entresto tomorrow if blood pressure and renal function allow. Continue metoprolol succinate. Spironolactone in the near future if able. No SGLT2 inhibitor for now given blood pressure and renal function but possibly in the future. Low-sodium diet, less than 2000 mg daily. Strict I's and O's. Daily weights. 4. Atrial fibrillation: Paroxysmal. With concern for underlying CAD, severely reduced LV systolic function, and heart failure with reduced EF, would try to maintain sinus rhythm. Repeat ECG now that in sinus. Start amiodarone p.o. 400 mg p.o. twice daily for 8 days and then 200 mg once daily. Monitor transaminase levels and TSH. Monitor QT periodically. Potential adverse reactions of amiodarone discussed with patient. Continue anticoagulation for stroke risk reduction. Eliquis 2.5 mg twice daily appropriate dose. 5. Mitral regurgitation: Nonsevere. Can be monitored over time. 6. Diarrhea: As per primary hospitalist service. 7. Disposition: Poor prognosis overall given advanced age, heart failure with reduced EF, severely reduced LV systolic function. He mentioned that he does not want heroic measures but wants to undergo CPR. We discussed what CPR entails. After further discussion, he would like to give it further thought. With his permission, contacted his nephew via telephone. His nephew agrees that he has been consistent in the past and not wanting heroic measures. For now, he remains full code but plans on giving it thought and when he comes to a final decision, he was asked to contact nursing staff. We discussed the fact that with his current comorbidities, CODE BLUE situation would likely result in even further debilitation and not likely to return to his baseline. Recommend palliative care consult. Patient care communicated with Dr. Henriquez of the primary hospitalist service. I will be away from the hospital later this evening. Please call on-call forklift truck mechanic with any further questions or concerns. Dr. Patterson will round tomorrow. On discharge, follow-up with Dr. Patterson in the [place] office. He is currently scheduled but would recommend closer follow-up given his ongoing issues. Highly complex medical issues. History of Present Illness Reason for Consultation: "Elevated trop; recent NTEMI; ?cardiac cath" Requesting Physician: Medardo Roa PA-C Attending Physician: Ernesto Villarreal MD History of Present Illness Mr. Ramirez is a very pleasant 88-year-old gentleman with a history significant for cardiomyopathy, NSTEMI, atrial fibrillation, CKD, and hypertension. He has outpatient cardiology follow-up scheduled in [place] with Dr. Patterson. He was admitted at [facility] initially on 03/11/2024 with A-fib with RVR, heart failure with reduced EF, and found to have cardiomyopathy with severely reduced LV systolic function. He was initially seen by Dr. Guaman and then followed throughout his hospital stay by Dr. Patterson from a cardiology perspective. He was also seen by nephrology. He was discharged on 03/20/2024 to [facility] and returned home from [facility] 2 days ago. When he returned home, he had an acute episode of diarrhea, and another episode the following day. This prompted him to come back to the hospital. He had home health nurses assisting him at home as well as a supervisor looping but otherwise lives alone. He denies chest pain, syncope, near syncope, palpitations, melena, hematochezia, or hematuria. He has mild dyspnea on exertion and has had lower extremity edema which has been a more recent development, but before this hospital stay. On presentation here, he was noted to be in atrial fibrillation with rapid ventricular response with heart rate 140 bpm. At home he had been taking metoprolol succinate 50 mg daily. He is currently free from chest pain, shortness of breath, palpitations. He recounts that he walked around the nursing station with physical therapy and had mild dyspnea on exertion. Review of systems: As above. Review of systems otherwise negative/unremarkable. Family history: Noncontributory. Social history: Quit smoking in 2003. Rare alcohol. Lives alone. . His in 2018. He had 1 child, a daughter who . His nephew, James, is very active in his life and helps handle his affairs per patient report. He was alone in his hospital room. Allergies Allergy/AdvReac Type Severity Reaction Status Date / Time Penicillins AdvReac Hives Verified 03/11/24 12:32 Home Medications Medication Instructions Recorded Confirmed Type vitamin E (dl, acetate) 450 mg 1,000 units PO 3XWK #30 caps 01/12/20 03/30/24 Rx (1,000 unit) capsule mecobalamin (vitamin B12) 1,000 1,000 mcg PO DAILY 12/09/23 03/30/24 History mcg chewable tablet pantoprazole 40 mg tablet,delayed 40 mg PO DAILY #90 tabs 02/02/24 03/30/24 Rx release terazosin 5 mg capsule 5 mg PO DAILY #90 caps 02/16/24 03/30/24 Rx sertraline 25 mg tablet 25 mg PO DAILY 03/11/24 03/30/24 History telmisartan 20 mg tablet 0 mg PO DAILY 03/11/24 03/30/24 History apixaban 2.5 mg tablet (Eliquis) 2.5 mg PO BID 30 days #60 tabs 03/19/24 03/30/24 Rx clopidogrel 75 mg tablet 75 mg PO QAM 30 days #30 tabs 03/19/24 03/30/24 Rx furosemide 20 mg tablet (Lasix) 20 mg PO DAILY #30 tabs 03/19/24 03/30/24 Rx metoprolol succinate 50 mg 50 mg PO QAM 30 days #30 tabs 03/19/24 03/30/24 Rx tablet,extended release 24 hr Problem List (Updated 03/31/24 @ 15:59 by Michael Wong MD) Mitral regurgitation NSTEMI (non-ST elevated myocardial infarction) Elevated troponin (Acute) Diarrhea (Acute) HFrEF (heart failure with reduced ejection fraction) History of non-ST elevation myocardial infarction (NSTEMI) Diarrhea Atrial fibrillation with RVR (Acute) PAF (paroxysmal atrial fibrillation) Abnormal ultrasound of abdomen Multiple ectopic atrial beats Cardiomyopathy Chronic kidney disease Acute kidney injury Acute systolic (congestive) heart failure Elevated troponin Supraventricular tachycardia Acute non-ST elevation myocardial infarction (NSTEMI) (Acute) Pulmonary edema (Acute) Anxiety and depression Impaired glucose metabolism Elevated PSA (Chronic) 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) Hiatal hernia with GERD (Chronic) HTN (hypertension) (Chronic) Patient History Surgical History S/P adenoidectomy 1944 S/P tonsillectomy 1944 Family History Father Cardiac disorder Hypertension Myocardial infarction, Onset Age: 69 Brother Cardiac disorder Hypertension Denies family history of Ovarian cancer Prostate cancer Breast cancer Lung cancer Colorectal cancer Social History Smoking Status: Never smoker Tobacco Type: Cigarettes and Cigars Second Hand Exposure: No; Do You Dip or Chew Tobacco: No; Hx Alcohol Use: Yes Alcohol type: wine Hx Substance Use: No Preferred Language: Hebrew Communication Ability: Effective Visual Impairment: No Limitations Hearing Ability: Hard of Hearing Roll Filler Required: No Beliefs That Will Affect Care: None marital status: / Current Living Situation: Alone Current Living Situation Comment: Private Home Alone current occupational status: retired Feels Safe at Home: Yes Childhood Exposure to Second-Hand Smoke: No Diet: regular Diet Comment: regular caffeine: Yes during the past year weight has: remained stable Dental Care, Regularly: Yes Physical Activity Frequency: Daily Physical Activity Frequency Comment: walk, outside work Seatbelt Use: always Sunscreen Use: No Assistive Devices: Walker Physical Exam Physical Exam: Gen.: No acute distress. Alert. HEENT: Anicteric sclera. Neck: No JVD. Hepatojugular reflux noted. No bruits. Normal carotid upstrokes bilaterally. Cardiac: No ventricular heave. Regular with ectopy. Normal S1-S2. No murmurs, rubs, or gallops. Pulmonary: Clear to auscultation bilaterally without wheezes, rales, or rhonchi. Abdomen: Soft, nontender, nondistended, with normoactive bowel sounds. No bruits noted. Extremities: 2+ radial pulses bilaterally. 1+ posterior tibialis pulses bilaterally. 1+ right lower extremity edema. Trace left lower extremity edema. Psychiatric: Affect appears appropriate. Results & Data Vital Signs (Past 12 Hours) Vital Signs Temp Pulse Pulse Resp BP BP Pulse Ox 03/31/24 11:00 36.5 C 93 H 18 103/72 93 03/31/24 08:07 102 H 03/31/24 07:38 36.4 C L 102 H 18 105/72 91 03/31/24 02:03 36.4 C L 118 H 18 94/60 L 90 O2 Del Method 03/31/24 11:00 Room Air 03/31/24 08:07 03/31/24 07:38 Room Air 03/31/24 02:03 Room Air Laboratory Results Laboratory Results - last 24 hr 03/30/24 03/30/24 03/30/24 13:05 16:17 21:55 WBC 8.92 RBC 3.59 L Hgb 11.3 L Hct 35.2 L MCV 98.1 MCH 31.5 MCHC 32.1 RDW Std Deviation 47.4 H RDW Coeff of Kahlil 13.3 Plt Count 193 MPV 11.9 Immature Gran % (Auto) 0.4 Neut % (Auto) 72.6 Lymph % (Auto) 15.0 Glasscock % (Auto) 10.1 Eos % (Auto) 1.3 Baso % (Auto) 0.6 Neut # (Auto) 6.47 Lymph # (Auto) 1.34 Glasscock # (Auto) 0.90 H Eos # (Auto) 0.12 Baso # (Auto) 0.05 Immature Gran # (Auto) 0.04 Absolute Nucleated RBC Nucleated RBC % (auto) PT 13.0 H INR 1.2 H APTT 32 H PTT Ratio 1.2 Heparin Anti-Xa, LM Wt Heparin Anti-Xa, Unfract Sodium 136 136 Potassium 4.0 3.8 Chloride 106 109 H Carbon Dioxide 21 19 L Anion Gap 9 8 BUN 33 H 32 H Creatinine 1.83 H 1.72 H Est Cr Clr Drug Dosing 30.2 32.5 Est GFR ( Amer) 37.6 40.5 Est GFR (Non-Af Amer) 32.4 35.0 BUN/Creatinine Ratio 18.0 18.6 Glucose 133 H 118 H Calcium 8.5 L 8.4 L Magnesium 1.7 Total Bilirubin 0.7 AST 18 ALT 8 Alkaline Phosphatase 56 Troponin I High Sens 2385.6 H* 3448.8 H* D 4583.6 H* D Total Protein 6.7 Albumin 3.3 L Globulin 3.4 Albumin/Globulin Ratio 1.0 TSH 2.763 Nasal Screen MRSA (PCR) Stl C. diff Tox B Gene 03/30/24 03/30/24 03/31/24 23:31 Unknown 03:23 WBC 8.72 RBC 3.37 L Hgb 10.7 L Hct 32.8 L MCV 97.3 MCH 31.8 MCHC 32.6 RDW Std Deviation 47.7 H RDW Coeff of Kahlil 13.3 Plt Count 172 MPV 11.5 Immature Gran % (Auto) 0.6 Neut % (Auto) 69.8 Lymph % (Auto) 16.6 Glasscock % (Auto) 10.0 Eos % (Auto) 2.2 Baso % (Auto) 0.8 Neut # (Auto) 6.09 Lymph # (Auto) 1.45 Glasscock # (Auto) 0.87 H Eos # (Auto) 0.19 Baso # (Auto) 0.07 Immature Gran # (Auto) 0.05 Absolute Nucleated RBC 0.02 Nucleated RBC % (auto) 0.2 PT INR APTT PTT Ratio Heparin Anti-Xa, LM Wt Heparin Anti-Xa, Unfract 1.23 H* 0.95 H* Sodium 136 Potassium 4.3 Chloride 109 H Carbon Dioxide 20 L Anion Gap 7 BUN 30 H Creatinine 1.69 H Est Cr Clr Drug Dosing 33.1 Est GFR ( Amer) 41.4 Est GFR (Non-Af Amer) 35.7 BUN/Creatinine Ratio 17.8 Glucose 110 H Calcium 8.5 L Magnesium 2.1 Total Bilirubin AST ALT Alkaline Phosphatase Troponin I High Sens 4552.9 H* Total Protein Albumin Globulin Albumin/Globulin Ratio TSH Nasal Screen MRSA (PCR) Negative Stl C. diff Tox B Gene 03/31/24 03/31/24 03/31/24 05:27 06:37 08:52 WBC RBC Hgb Hct MCV MCH MCHC RDW Std Deviation RDW Coeff of Kahlil Plt Count MPV Immature Gran % (Auto) Neut % (Auto) Lymph % (Auto) Glasscock % (Auto) Eos % (Auto) Baso % (Auto) Neut # (Auto) Lymph # (Auto) Glasscock # (Auto) Eos # (Auto) Baso # (Auto) Immature Gran # (Auto) Absolute Nucleated RBC Nucleated RBC % (auto) PT INR APTT PTT Ratio Heparin Anti-Xa, LM Wt Heparin Anti-Xa, Unfract 0.91 H* 0.89 H* 0.82 H* Sodium Potassium Chloride Carbon Dioxide Anion Gap BUN Creatinine Est Cr Clr Drug Dosing Est GFR ( Amer) Est GFR (Non-Af Amer) BUN/Creatinine Ratio Glucose Calcium Magnesium Total Bilirubin AST ALT Alkaline Phosphatase Troponin I High Sens Total Protein Albumin Globulin Albumin/Globulin Ratio TSH Nasal Screen MRSA (PCR) Stl C. diff Tox B Gene 03/31/24 03/31/24 11:00 Unknown WBC RBC Hgb Hct MCV MCH MCHC RDW Std Deviation RDW Coeff of Kahlil Plt Count MPV Immature Gran % (Auto) Neut % (Auto) Lymph % (Auto) Glasscock % (Auto) Eos % (Auto) Baso % (Auto) Neut # (Auto) Lymph # (Auto) Glasscock # (Auto) Eos # (Auto) Baso # (Auto) Immature Gran # (Auto) Absolute Nucleated RBC Nucleated RBC % (auto) PT INR APTT PTT Ratio Heparin Anti-Xa, LM Wt Cancelled Heparin Anti-Xa, Unfract Pending Sodium Potassium Chloride Carbon Dioxide Anion Gap BUN Creatinine Est Cr Clr Drug Dosing Est GFR ( Amer) Est GFR (Non-Af Amer) BUN/Creatinine Ratio Glucose Calcium Magnesium Total Bilirubin AST ALT Alkaline Phosphatase Troponin I High Sens Total Protein Albumin Globulin Albumin/Globulin Ratio TSH Nasal Screen MRSA (PCR) Stl C. diff Tox B Gene Negative Cdiff Gene Diagnostic Findings Telemetry personally reviewed: Atrial fibrillation with rapid ventricular response until approximately 2:37 AM on 03/31/2024 at which point rhythm converted to sinus rhythm. Sinus rhythm with PACs and atrial couplets since then when reviewed this morning. History and physical report reviewed. ECGs personally reviewed: ECG 03/30/2024 1411: A-fib RVR [address]/T wave abnormality. ECG 03/30/2024 at 2119: A-fib with RVR [address]/T wave abnormality. Echo 03/11/2024: Images were personally reviewed. Severely reduced LV systolic function. Large area of apical akinesis to dyskinesis with akinesis of the mid anterolateral, mid septal, mid anteroseptal wall segments. Otherwise, global hypokinesis. Moderate mitral regurgitation. Moderate pulmonary hypertension. Labs reviewed and notable for elevated high-sensitivity troponin peaking at 4583, abnormal renal function (chronic), normal potassium, normal transaminase levels, chronic anemia. Chest x-ray 03/30/2024: Mild interstitial pulmonary edema per radiology. Medications Administered Current Inpatient Medications Acetaminophen (Acetaminophen 325 Mg Tab) 650 mg PO Q4H PRN PRN Reason: Pain or Fever Stop: 04/29/24 17:55 Clopidogrel Bisulfate (Clopidogrel Bisulfate 75 Mg Tab) 75 mg PO [facility] Stop: 04/30/24 08:59 Last Admin: 03/31/24 11:05 Dose: 75 mg Heparin Sodium/Dextrose (Heparin Sodium/Dextrose) 25,000 units in 500 mls @ 0 mls/hr IV .Q0M COUNTS INCLUDE 234 BEDS AT THE [facility]; Protocol Stop: 04/29/24 17:14 Last Titration: 03/31/24 05:00 Dose: 0 units/hr, 0 mls/hr Metoprolol Succinate (Metoprolol Succ 50mg Ext Rel Tab) 50 mg PO [facility] Stop: 04/30/24 08:59 Last Admin: 03/31/24 11:04 Dose: 50 mg Ondansetron HCl (Ondansetron Inj 2 Mg/Ml 2 Ml Vial) 4 mg IV Q6H PRN PRN Reason: Nausea Stop: 04/29/24 17:55 Pantoprazole Sodium (Pantoprazole 40 Mg Tab) 40 mg PO DAILY JOE Stop: 04/30/24 08:59 Last Admin: 03/31/24 11:03 Dose: 40 mg Sertraline HCl (Sertraline Hcl 50 Mg Tablet) 25 mg PO DAILY JOE Stop: 04/30/24 08:59 Last Admin: 03/31/24 11:03 Dose: 25 mg Terazosin HCl (Terazosin Hcl 5 Mg Cap) 5 mg PO DAILY JOE Stop: 04/30/24 08:59 Last Admin: 03/31/24 11:03 Dose: 5 mg PG Care Time/CCT Total # of Minutes Spent Total Time Spent with Patient: Total time spent is greater than 50% in coordination of care (as documented) at patient's floor/unit and/or counseling patient: Coding Level of Care Code 86830 INT INP/OBS CARE 3/75MIN Diagnoses NSTEMI (non-ST elevated myocardial infarction) I21.4 HFrEF (heart failure with reduced ejection fraction) I50.20 PAF (paroxysmal atrial fibrillation) I48.0 Cardiomyopathy I42.9 Chronic kidney disease N18.9 Mitral regurgitation I34.0
[2024-03-31 12:42] LABS: ANTI-Xa, UFH(UnfractionatedHep 0.78 IU/ml (0.3-0.7)
[2024-03-31 14:35] LABS: Adenovirus F 40/41 PCR Not Detected (NotDetected); Astrovirus PCR Not Detected (NotDetected); Campylobacter PCR Not Detected (NotDetected); Cryptosporidium PCR Not Detected (NotDetected); Cyclospora cayetanensis PCR Not Detected (NotDetected); Entamoeba histolytica PCR Not Detected (NotDetected); Enteroaggregative E.coli(EAEC) Not Detected (NotDetected); Enteropathogenic E.coli (EPEC) Not Detected (NotDetected); Enterotoxigenic E.coli (ETEC) Not Detected (NotDetected); Giardia lamblia PCR Not Detected (NotDetected); Norovirus GI/GII PCR Not Detected (NotDetected); Plesiomonas shigelloides PCR Not Detected (NotDetected); Rotavirus A PCR Not Detected (NotDetected); Salmonella PCR Not Detected (NotDetected); Sapovirus PCR Not Detected (NotDetected); Shiga-like Toxin E.coli (STEC) Not Detected (NotDetected); Shigella/Enteroinvasive E.coli Not Detected (NotDetected); Vibrio cholerae PCR Not Detected (NotDetected); Vibrio species PCR Not Detected (NotDetected); Yersinia enterocolitica PCR Not Detected (NotDetected)
[2024-03-31 14:36] LABS: ANTI-Xa, UFH(UnfractionatedHep 0.68 IU/ml (0.3-0.7)
[2024-03-31] MEDS: AMIODARONE 200 MG TAB PO SCH (16:45)
[2024-03-31] MEDS: MELATONIN 3 MG TAB PO PRN (21:04)
[2024-03-31 22:06] LABS: ANTI-Xa, UFH(UnfractionatedHep 0.56 IU/ml (0.3-0.7)
--- NOTE | 2024-04-01 00:14 | Electrocardiogram Report ---
Test Reason : Blood Pressure : / mmHG Vent. Rate : 140 BPM Atrial Rate : 000 BPM P-R Int : 000 ms QRS Dur : 092 ms QT Int : 274 ms P-R-T Axes : 000 -12 129 degrees QTc Int : 418 ms Atrial fibrillation with rapid ventricular response Low voltage QRS Nonspecific ST and T wave abnormality Inferior infarct Abnormal ECG When compared with ECG of 18-MAR-2024 02:42, No significant change Confirmed by Michael Wong ([id number]) on 04/01/2024 12:13:38 AM Referred By: Gabino Weaver Confirmed By:Michael Wong
--- NOTE | 2024-04-01 00:29 | Electrocardiogram Report ---
Test Reason : Blood Pressure : / mmHG Vent. Rate : 125 BPM Atrial Rate : 107 BPM P-R Int : 000 ms QRS Dur : 094 ms QT Int : 324 ms P-R-T Axes : 000 -05 136 degrees QTc Int : 467 ms Atrial fibrillation with rapid ventricular response Low voltage QRS Nonspecific ST and T wave abnormality Abnormal ECG When compared with ECG of 30-MAR-2024 14:11, Inferior infarct is no longer Present Confirmed by Michael Wong ([id number]) on 04/01/2024 12:29:16 AM Referred By: Gabino Weaver Confirmed By:Michael Wong
--- NOTE | 2024-04-01 00:30 | Electrocardiogram Report ---
Test Reason : Blood Pressure : / mmHG Vent. Rate : 089 BPM Atrial Rate : 089 BPM P-R Int : 170 ms QRS Dur : 092 ms QT Int : 360 ms P-R-T Axes : 070 075 257 degrees QTc Int : 438 ms Sinus rhythm with Premature supraventricular complexes Abnormal ECG When compared with ECG of 30-MAR-2024 21:19, Sinus rhythm has replaced Atrial fibrillation Questionable change in QRS axis Confirmed by Michael Wong ([id number]) on 04/01/2024 12:29:42 AM Referred By: Gabino Weaver Confirmed By:Michael Wong
[2024-04-01 06:28] LABS: BUN Creatinine Ratio 18.3 (10-20); Calcium 8.3 mg/dl (8.6-10.3); Creatinine Clr Calc Pharmacy 30.2 ml/min; Est GFR (African American) 36.9 ml/min; Est GFR (Non-African American) 31.8 ml/min; Potassium 4.4 mmol/L (3.5-5.1)
[2024-04-01 06:31] LABS: ANTI-Xa, UFH(UnfractionatedHep 0.49 IU/ml (0.3-0.7)
[2024-04-01 06:34] LABS: Basophils # (auto) 0.06 K/uL (0.00-0.20); Basophils % (auto) 0.6 %; Eosinophils # (auto) 0.13 K/uL (0.00-0.50); Eosinophils % (auto) 1.3 %; Hematocrit (blood only) 34.8 % (42.0-52.0); Hemoglobin 11.2 g/dl (14.0-18.0); Immature Granulocytes # (auto) 0.08 K/uL (0.01-0.20); Immature Granulocytes % (auto) 0.8 %; Lymphocytes # (auto) 1.31 K/uL (1.20-3.40); Lymphocytes % (auto) 13.3 %; Mean Corpuscular Hemoglobin 31.7 pg (25.0-34.0); Mean Corpuscular Hgb Conc 32.2 g/dL (32.0-36.0); Mean Corpuscular Volume 98.6 fL (80.0-100.0); Mean Platelet Volume 12.1 fL (9.4-12.4); Monocytes # (auto) 0.97 K/uL (0.11-0.59); Monocytes % (auto) 9.8 %; Neutrophils # (auto) 7.33 K/uL (1.40-6.50); Neutrophils % (auto) 74.2 %; Platelet Count 188 K/uL (130-400); RDW Coefficient of Variation 13.4 % (11.5-14.5); RDW Standard Deviation 48.5 fL (36.4-46.3); Red Blood Count 3.53 M/uL (4.70-6.10); White Blood Count 9.88 K/ul (4.8-10.8)
[2024-04-01] MEDS: FUROSEMIDE 20 MG TAB PO SCH (08:11)
[2024-04-01] MEDS: APIXABAN 2.5 MG TAB PO SCH (08:12)
--- NOTE | 2024-04-01 14:34 | Hospitalist Progress Note ---
Date of Service April 01, 2024 Assessment & Plan (1) NSTEMI (non-ST elevated myocardial infarction): Plan: Troponin elevated at 2385-->4552 Pt has afib rvr so likely from demand ischemia, no current of injury on ECG and no chest pain A-fib RVR at 140 bpm on arrival initially use diltiazem, converted to metoprolol amiodarone with conversion to sinus rhythm. Cardiology recommending continuation of amiodarone after discharge, 400 twice daily for 8 days which will be April 08, then reduce to 200 mg once a day thereafter Recent [place] hospitalization from 03/11 - 03/18 for suspected NSTEMI However cardiac cath was deferred due to rising creatinine level At this point in time, after discussion with cardiology, patient wishes to pursue conservative management with the concern for renal decline after IV dye load. Patient remains on metoprolol has not been on any antianginals or long-acting nitrates otherwise Continue ASA plus clopidogrel returns to Eliquis for A-fib thrombosis prevention (2) HFrEF (heart failure with reduced ejection fraction): Plan: Echocardiogram on 03/11/24 with LVEF at 20-25% with severe hypokinesis Heart healthy, low-sodium diet Lasix to resume 04/02 (3) Diarrhea: Plan: Diarrhea that began on Tuesday 03/27 while at rehab Diarrhea has been reducing in volume and frequency C. difficile is resulted negative PCR for stool was also negative (4) Chronic kidney disease: Plan: Continue to hold telmisartan, ckd3 Plan Full code Resumed Eliquis therapy once IV heparin is stopped Admission and Anticipated Discharge Date Admission Date: March 30, 2024 Subjective Patient feels much better he has been ambulating and has had no chest pain or shortness of breath was sent in from home health with complaints of diarrhea, has not had voluminous output but 2 loose stools sent no further loose stools since samples were sent for testing speaking with cardiology wants to pursue medical management, additionally amiodarone was added orally for atrial fibrillation control with conversion to sinus rhythm Physical Exam Physical Exam: pt is with return to regular rhythm with regular cardiac exam with systolic murmur lungs are clear abd is soft and non tender Results & Data Results & Data Vital Signs (Past 12 Hours) Vital Signs Temp Pulse Pulse Resp BP Pulse Ox O2 Del Method 04/01/24 11:00 97.9 F 84 18 119/59 L 98 Room Air 04/01/24 08:00 97.7 F 88 20 98/61 L 96 Room Air 04/01/24 05:42 80 04/01/24 02:52 97.5 F L 70 22 104/68 95 Room Air Laboratory Results Reviewed CBC reviewed chemistry PG Care Time/CCT Total # of Minutes Spent Total Time Spent with Patient: Total time spent is greater than 50% in coordination of care (as documented) at patient's floor/unit and/or counseling patient: Coding Level of Care Code 62529 SUB INP/OBS CARE 3/50MIN Diagnoses NSTEMI (non-ST elevated myocardial infarction) I21.4 HFrEF (heart failure with reduced ejection fraction) I50.20 Diarrhea R19.7 Chronic kidney disease N18.9
[2024-04-02 06:40] LABS: Basophils # (auto) 0.07 K/uL (0.00-0.20); Basophils % (auto) 0.6 %; Eosinophils # (auto) 0.06 K/uL (0.00-0.50); Eosinophils % (auto) 0.5 %; Hematocrit (blood only) 34.3 % (42.0-52.0); Hemoglobin 11.1 g/dl (14.0-18.0); Immature Granulocytes # (auto) 0.22 K/uL (0.01-0.20); Immature Granulocytes % (auto) 1.9 %; Lymphocytes # (auto) 1.23 K/uL (1.20-3.40); Lymphocytes % (auto) 10.4 %; Mean Corpuscular Hemoglobin 31.8 pg (25.0-34.0); Mean Corpuscular Hgb Conc 32.4 g/dL (32.0-36.0); Mean Corpuscular Volume 98.3 fL (80.0-100.0); Mean Platelet Volume 11.8 fL (9.4-12.4); Monocytes # (auto) 1.04 K/uL (0.11-0.59); Monocytes % (auto) 8.8 %; Neutrophils # (auto) 9.16 K/uL (1.40-6.50); Neutrophils % (auto) 77.8 %; Nucleated RBC # (auto) 0.02 K/uL (0.00-0.12); Nucleated RBC % (auto) 0.2 %; Platelet Count 192 K/uL (130-400); RDW Coefficient of Variation 13.4 % (11.5-14.5); RDW Standard Deviation 48.8 fL (36.4-46.3); Red Blood Count 3.49 M/uL (4.70-6.10); White Blood Count 11.78 K/ul (4.8-10.8)
[2024-04-02 06:47] LABS: BUN Creatinine Ratio 18.2 (10-20); Calcium 8.4 mg/dl (8.6-10.3); Creatinine Clr Calc Pharmacy 29.3 ml/min; Est GFR (African American) 35.5 ml/min; Est GFR (Non-African American) 30.6 ml/min; Potassium 4.4 mmol/L (3.5-5.1)
[2024-04-02] MEDS: FUROSEMIDE 20 MG TAB PO SCH (07:56)
--- NOTE | 2024-04-02 09:30 | Hospitalist Progress Note ---
Date of Service April 02, 2024 Assessment & Plan (1) NSTEMI (non-ST elevated myocardial infarction): (2) HFrEF (heart failure with reduced ejection fraction): (3) Diarrhea: (4) Chronic kidney disease: Plan: Continue to hold telmisartan, ckd3 Plan #NSTEMI (non-ST elevated myocardial infarction): - Troponin elevated at 2385-->4552 - Pt has afib rvr so likely from demand ischemia, no current of injury on ECG and no chest pain - A-fib RVR at 140 bpm on arrival initially use diltiazem, converted to metoprolol amiodarone with conversion to sinus rhythm. - Cardiology recommending continuation of amiodarone after discharge, 400 twice daily for 8 days which will be April 08, then reduce to 200 mg once a day thereafter - Recent [place] hospitalization from 03/11 - 03/18 for suspected NSTEMI - However cardiac cath was deferred due to rising creatinine level - At this point in time, after discussion with cardiology, patient wishes to pursue conservative management with the concern for renal decline after IV dye load. - Patient remains on metoprolol has not been on any antianginals or long-acting nitrates otherwise - cont clopidogrel and eliquis for AFib thrombosis prevention #HFrEF (heart failure with reduced ejection fraction): - Echocardiogram on 03/11/24 with LVEF at 20-25% with severe hypokinesis - Heart healthy, low-sodium diet - Lasix to resume 04/02 #Diarrhea: - Diarrhea that began on Tuesday 03/27 while at rehab - Diarrhea has been reducing in volume and frequency - C. difficile is resulted negative PCR for stool was also negative #Chronic kidney disease: - Continue to hold telmisartan, ckd3 Full code Admission and Anticipated Discharge Date Admission Date: March 30, 2024 Results & Data Results & Data Vital Signs (Past 12 Hours) Vital Signs Temp Pulse Pulse Resp BP BP Pulse Ox 04/02/24 07:40 36.4 C L 84 18 107/68 90 04/02/24 03:05 36.6 C 82 18 105/69 92 04/01/24 22:56 97 04/01/24 22:31 36.5 C 80 18 102/69 92 04/01/24 21:34 72 O2 Del Method 04/02/24 07:40 Room Air 04/02/24 03:05 Room Air 04/01/24 22:56 Room Air 04/01/24 22:31 Room Air 04/01/24 21:34 PG Care Time/CCT Total # of Minutes Spent Total Time Spent with Patient: Total time spent is greater than 50% in coordination of care (as documented) at patient's floor/unit and/or counseling patient: Coding Diagnoses NSTEMI (non-ST elevated myocardial infarction) I21.4 HFrEF (heart failure with reduced ejection fraction) I50.20 Diarrhea R19.7 Chronic kidney disease N18.9
--- NOTE | 2024-04-02 11:20 | Discharge Summary ---
Discharge Summary Date of Service April 02, 2024 Principal Dx & Hospital Course #1 = Principal Diagnosis (1) NSTEMI (non-ST elevated myocardial infarction): (2) HFrEF (heart failure with reduced ejection fraction): (3) Diarrhea: (4) Chronic kidney disease: Plan #NSTEMI (non-ST elevated myocardial infarction) #AFib RVR - Troponin elevated at 2385-->4552 - Pt has afib rvr so likely from demand ischemia, no current of injury on ECG and no chest pain - A-fib RVR at 140 bpm on arrival initially use diltiazem, converted to metoprolol amiodarone with conversion to sinus rhythm. - Cardiology recommending continuation of amiodarone after discharge, 400 twice daily for 8 days which will be April 08, then reduce to 200 mg once a day thereafter - Recent [place] hospitalization from 03/11 - 03/18 for suspected NSTEMI - However cardiac cath was deferred due to rising creatinine level - At this point in time, after discussion with cardiology, patient wishes to pursue conservative management with the concern for renal decline after IV dye load. - Patient remains on metoprolol has not been on any antianginals or long-acting nitrates otherwise - cont clopidogrel and eliquis for AFib thrombosis prevention #HFrEF (heart failure with reduced ejection fraction): - Echocardiogram on 03/11/24 with LVEF at 20-25% with severe hypokinesis - Heart healthy, low-sodium diet - Lasix to resume 04/02 - spoke with cardiology, recs starting Entresto after evaluated by nephro and cards as outpatient. #Diarrhea: - Diarrhea that began on Tuesday 03/27 while at rehab, currently resolved - C. difficile is resulted negative PCR for stool was also negative #Chronic kidney disease: - Continue to hold telmisartan, ckd3 Code status: Full code Notes For Next Care Provider Pt will need BMP in 1 week. Pt will need follow up with Nephrology and Cardiology. Medication Changes From Visit Started on Amiodarone Held Telmisartan Admission HPI Per Admitting Provider Richy is an 88-year-old male with PMH of HTN, NSTEMI, GERD, BPH, anxiety and depression, CHF, CKD, cardiomyopathy, and paroxysmal A-fib (on apixaban). He presented via BLS for diarrhea that began on Tuesday 03/27 while patient was at [facility] for rehab. Patient lives alone. He was initially at [facility] from 03/11-03/18 for cardiac issues, then went to [facility] for rehab and was discharged home 2 days ago. He reports that he was much closer to the restrooms at [facility], and after being discharged home he was having trouble getting to the bathroom. He denies any falls or fecal/urinary incontinence. 2 episodes of diarrhea this morning. Liquidy in consistency. He also notes they have been yellow, mucousy. No blood in his diarrhea. He denies any recent antibiotic use, and reports that the stool has not been malodorous. He has not been requiring a walker at baseline for ambulation. In terms of change in appetite, he does note that he has had a decreased appetite, as he did not like the food at [facility]. No PMH of IBS, C. difficile, food intolerances, or bowel issues to his knowledge. No sick contacts that he is aware of. He is a former tobacco cigarette smoker but quit in 2003; denies any recent alcohol use. He is chest pain-free at time of admission. His niece and nephew help manage his medications at home; he reports he took all of his regular morning medications today. Patient is hypotensive at 95/80 and tachycardic at 120 bpm at time of admission. ED course: NSS 500 mL IV x 2 NSS 250 mL IV Lopressor 2.5 mg IV ROS: Patient endorses diarrhea x 2 days (which comes on suddenly and he reports that he has "no control" over it). Patient denies fever, chills, night-sweats, dizziness, lightheadedness with walking, falls/fainting, MOORE, chest pain, chest palpitations, chest pressure/tightness, left shoulder pressure/tightness, SOB at rest or with exertion, cough, wheezing, abdominal pain, nausea, vomiting, burning with urination, dysuria, blood in the urine/stool, or numbness/tingling in the arms or legs. Admission Exam Per Admitting Provider General: no acute distress; pleasant affect; non-toxic appearing; well- nourished; cooperative; SpO2 97% on RA HEENT: normocephalic, atraumatic; no scleral icterus; PERRLA w/ EOMs intact; moist mucus membrane; vision and hearing intact Neck: supple; no lymphadenopathy; trachea midline Skin: warm, dry without signs of tenting; no cyanosis; no rashes, bruising, lesions, or erythema noted CV: chest wall NTP; irregularly irregular rhythm, tachycardic around 120 bpm; S1/S2 normal; no murmurs/rubs/gallops; pulses intact and symmetric at radial, DP, and PT Lungs: no acute respiratory distress; symmetrical chest wall expansion; clear breath sounds across all lung lake w/o adventitious sounds; no wheezing ABD: Soft, NTP; BS present; no rebound/guarding; no distention; purple bruising on the right upper quadrant MSK: no tics or fasciculations; +1 pitting edema edema noted in the LEs b/l extending to the mid calves, nonerythematous Neuro: A&Ox3; normal mood and affect; fluent speech; no focal deficits; sensation intact and symmetric in the LEs b/l Discharge Exam Gen: no acute distress, sitting in chair comfortable HEENT: normocephalic / atraumatic, no scleral icterus, moist mucus membrane, supple neck, trachea midline, presbycusis CVS: s1s2 nl, RRR, no murmurs / rubs / gallops Lungs: breathing comfortably, CTAB Abd: soft, NTP, bowel sounds present, no rebound / rigidity / guarding Ext: b/l LE edema, right slightly worse Neuro: awake , alert Psych: pleasant, nonanxious Updated Medication List Medication Instructions Recorded Confirmed Type vitamin E (dl, acetate) 450 mg 1,000 units PO 3XWK #30 caps 01/12/20 03/30/24 Rx (1,000 unit) capsule mecobalamin (vitamin B12) 1,000 1,000 mcg PO DAILY 12/09/23 03/30/24 History mcg chewable tablet pantoprazole 40 mg tablet,delayed 40 mg PO DAILY #90 tabs 02/02/24 03/30/24 Rx release terazosin 5 mg capsule 5 mg PO DAILY #90 caps 02/16/24 03/30/24 Rx sertraline 25 mg tablet 25 mg PO DAILY 03/11/24 03/30/24 History telmisartan 20 mg tablet 0 mg PO DAILY 03/11/24 03/30/24 History apixaban 2.5 mg tablet (Eliquis) 2.5 mg PO BID 30 days #60 tabs 03/19/24 03/30/24 Rx clopidogrel 75 mg tablet 75 mg PO QAM 30 days #30 tabs 03/19/24 03/30/24 Rx furosemide 20 mg tablet (Lasix) 20 mg PO DAILY #30 tabs 03/19/24 03/30/24 Rx metoprolol succinate 50 mg 50 mg PO QAM 30 days #30 tabs 03/19/24 03/30/24 Rx tablet,extended release 24 hr amiodarone 200 mg tablet 400 mg (2 x 200 mg) PO BIDM #30 04/02/24 Rx tabs Hospital Stay Data Consultations 03/30/24 16:05 ED Decision to Admit Stat 03/30/24 16:21 Consult Cardiology Routine Discharge Instructions Given to Patient (Per Discharging Provider) You were admitted to the hospital for the evaluation of severe diarrhea. You were found have atrial fibrillation and minor heart attack. You were managed conservatively due to your kidney function. You were evaluated by cardiology and started on medication Amiodarone to control your heart rate. Please note that yo u will be taking Amiodarone 400mg twice a day until April 08, then onwards you will reduce to the dose to Amiodarone 200mg daily. Please make sure the pharmacy fill the script like this. You have been medically optimized. Per discussion with cardiology, further medications modifications can be done with your outpatient senior sales compensation analyst. Please discuss initiation of Entresto with your senior sales compensation analyst. You are now medically stable for discharge. If you have any questions about your medications or other medical questions after discharge, please follow up with your primary care doctor. It was a pleasure being part of your medical care team during your stay at [facility]. Call 911 and go to the Emergency Room if: * You have tightness or pain in your chest that does not go away with rest or Nitroglycerin * You are very short of breath even with rest Call your doctor if any of the following symptoms or problems start or get worse: * Shortness of breath or difficulty breathing * Wake up at night short of breath * Chest pain * Cough * Swelling of your hands, fee, or legs * More fatigued or tired with your normal activity * Palpitations - sudden fast heart beats WEIGHT * Weigh yourself every morning after using the bathroom. * Use the same scale. * Wear the same amount of clothing. * Write your weight down on your chart. * Call your doctor if you gain more than 2-3 pounds in 1-2 days. MEDICATIONS * Use this discharge instruction sheet for instructions. * Take your medications at the time your doctor ordered. * Do not skip a dose of your medicines. * If you miss a dose of medicine, take as soon as possible, but DO NOT DOUBLE A DOSE. * Read your medicine information when you get home. * Know all of the side effects of your medicine. * Call your doctor's office if you have any side effects. * Be sure all of your doctors know what medicine and herbs you take (including cold, flu, and herbal medicine). * Pain Medicine: If you do not get relief from your pain, please call your doctor for help. Take the following with you to your follow-up doctor appointments: * Weight Chart * Medication List * List of questions Do not drink excessive alcohol, beer or wine. Total Time Total Time Spent Total Time Spent (In Minutes): 60 mins Supervising Physician Co-Signing Physician Notes 88-year-old male who was recently admitted to the hospital with ischemic cardiomyopathy, worsening kidney function, atrial fibrillation, he did not have a cardiac cath secondary to worsening kidney function, denies any chest pain today, presents with severe diarrhea, since he left the hospital, he is tachycardic, in A-fib with RVR, was given IV fluids, Lopressor, denies abdominal pain, denies shortness of breath, fever or chills Will admit him to telemetry IV fluids Will check stool for C. difficile Start him on empiric treatment for C. difficile with vancomycin Non-STEMI Start him on IV heparin Hold Eliquis Consult got senior sales compensation analyst A-fib with RVR Continue low-dose metoprolol, avoid hypotension Chronic kidney disease stage III monitor BMP, hydration Coding Level of Care Code 50669 INP/OBS DISCH >30 MIN Diagnoses NSTEMI (non-ST elevated myocardial infarction) I21.4 HFrEF (heart failure with reduced ejection fraction) I50.20 Diarrhea R19.7 Chronic kidney disease N18.9
[2024-04-02 11:44] VITALS: PULSE 114; RESP 19; TEMP 97.7; O2SAT 92
[2024-04-02 12:13] VITALS: BP 107/68
[2024-04-09] MEDS ORDERED: AMIODARONE 200 MG TAB PO SCH (09:00)
== END 2024-04-02 12:54 | disposition home health service (06) | DRG 281 ==
LOC: ED 13:52 → 2S 16:53 → SUATTDRO 16:53 → 2S 17:39

== ENCOUNTER 2024-04-05 14:15 | Inpatient (IN) ==
[2024-04-05 14:49] LABS: Basophils # (auto) 0.06 K/uL (0.00-0.20); Basophils % (auto) 0.5 %; Eosinophils # (auto) 0.22 K/uL (0.00-0.50); Eosinophils % (auto) 1.9 %; Hematocrit (blood only) 35.7 % (42.0-52.0); Hemoglobin 11.4 g/dl (14.0-18.0); Immature Granulocytes # (auto) 0.09 K/uL (0.01-0.20); Immature Granulocytes % (auto) 0.8 %; Lymphocytes # (auto) 1.03 K/uL (1.20-3.40); Lymphocytes % (auto) 8.8 %; Mean Corpuscular Hemoglobin 31.2 pg (25.0-34.0); Mean Corpuscular Hgb Conc 31.9 g/dL (32.0-36.0); Mean Corpuscular Volume 97.8 fL (80.0-100.0); Mean Platelet Volume 12.1 fL (9.4-12.4); Monocytes # (auto) 1.23 K/uL (0.11-0.59); Monocytes % (auto) 10.5 %; Neutrophils # (auto) 9.13 K/uL (1.40-6.50); Neutrophils % (auto) 77.5 %; Platelet Count 202 K/uL (130-400); RDW Coefficient of Variation 13.2 % (11.5-14.5); RDW Standard Deviation 47.3 fL (36.4-46.3); Red Blood Count 3.65 M/uL (4.70-6.10); White Blood Count 11.76 K/ul (4.8-10.8)
[2024-04-05 15:07] LABS: Alanine Aminotransferase 12 U/L (7-52); Albumin Globulin Ratio 0.9 (0.9-2); Albumin Level 3.3 gm/dl (3.4-5.0); Alkaline Phosphatase 66 U/L (34-104); Anion Gap 8 (3-11); Aspartate Aminotransferase 15 U/L (13-39); BUN Creatinine Ratio 23.2 (10-20); Bilirubin,Total 0.7 mg/dl (0.2-1.0); Blood Urea Nitrogen 51 mg/dl (6-23); Calcium 8.9 mg/dl (8.6-10.3); Carbon Dioxide 21 mmol/L (21-32); Chloride 104 mmol/L (98-107); Est GFR (African American) 30.1 ml/min; Globulin 3.5 gm/dl (2.5-4.0); Glucose 105 mg/dl (70-99(Fasting)); Potassium 4.7 mmol/L (3.5-5.1); Sodium 133 mmol/L (136-145); Total Protein 6.8 gm/dl (6.0-8.3)
[2024-04-05 15:16] LABS: INR 1.3 (0.9-1.1); Partial Thromboplastin Ratio 1.2; Partial Thromboplastin Time 31 Seconds (21-31)
[2024-04-05 15:34] LABS: Troponin I High Sensitivity 229.4 pg/ml (0-20)
--- NOTE | 2024-04-05 15:43 | XRay Report ---
XR chest 1V not portable HISTORY: Chest pain, nonspecific COMPARISON: Chest 03/30/2024. FINDINGS: No pneumothorax. The heart remains enlarged. Progressive interstitial/vascular thickening a nd small bilateral pleural effusions. Left upper lobe airspace opacities have also progressed. Bibasi lar airspace opacities again noted. IMPRESSION: 1. Interval progression of the left upper lobe airspace opacities likely representing a pneumonia. 2. Cardiomegaly with pulmonary edema and small bilateral pleural effusions have also slightly progres sed. 3. Bibasilar densities persist. ACT 112: Negative or not required by law. Electronically signed by: Medardo Woodall M.D. 04/05/2024 3:42 PM
[2024-04-05] MEDS: FUROSEMIDE 40 MG/4 ML VIAL IV ONE (15:54)
--- NOTE | 2024-04-05 16:04 | History & Physical Report ---
Date of Service April 05, 2024 Assessment & Plan (1) HFrEF (heart failure with reduced ejection fraction): Plan: Heart failure with reduced ejection fraction BNP elevated at 1537, 16 pounds of outpatient weight gain by report, 3+ pitting edema bilaterally Chest x-ray with pulmonary edema, additionally with left upper lobe airspace opacity suspicious for superimposed pneumonia, and bilateral pleural effusions With overt volume overload. Lasix twice daily IV, potassium supplemented, strict ins and outs. trend creatinine daily. Creatinine is upper limit of patient's normal range on admission, overly overloaded Continue amiodarone, Plavix, Eliquis, metoprolol. Hold metoprolol for SBP less than 100 or heart rate less than 60. EKG: Normal sinus rhythm, no acute ischemic changes. (2) PNA (pneumonia): Plan: ? Left upper lobe pneumonia Is with leukocytosis, dyspnea, and progressive upper opacity in addition to a productive cough in the last week Sputum culture ordered Procalcitonin ordered Has had recent hospital admission, and is penicillin allergic. No history of QTP. History of aneurysms. Started on Levaquin adjusted every 48 hour dosing (3) Chronic kidney disease: Plan: CKD Losartan held both for recent hypotension and upper limit of normal creatinine Patient with recent creatinine range of around 1.42.1, continue creatinine 2.2 with overt volume overload (4) PAF (paroxysmal atrial fibrillation): Plan: Sinus on admission Continue amiodarone/Eliquis Plan Prophylaxis: Anticoagulated Disposition: Medical telemetry CODE STATUS: Full code diet: Heart healthy History of Present Illness Primary Care Provider: FLORI Pérez Richy is an 88-year-old male with a past medical history of NSTEMI, heart failure with reduced ejection fraction, CKD recently discharged 04/02/2024 after an admission for NSTEMI due to demand ischemia/type II with A-fib RVR at the time presents to the ER with reported 60 pounds of weight gain over 3 days of bilateral leg swelling and fatigue. On ER assessment chest x-ray shows interval progression of left upper lobe airspace opacity suspicious for pneumonia, cardiomegaly with pulmonary edema and small bilateral pleural effusions, persistent bibasilar densities. She does have a slight leukocytosis of 11.76 with neutrophilic predominance but no granulocytic expansion. Creatinine is upper limit of patient's normal at 2.2, troponin is elevated at 229 but down trended from prior on 03/31 at 4552, BNP markedly elevated at 1537.3+ pitting edema Richy is seen at the bedside; he is very hard of hearing. Reports after returning home he continued to have rapidly worsening swelling in his lower extremities and weight gain. He has also not been able to sleep flat as laying flat makes him short of breath. He has had no chest pain since returning home, and is chest pain-free on admission. He denies fever, chills, night sweats. He has had a minimally productive cough since returning home. No abdominal pain, nausea, vomiting, diarrhea, constipation. No palpitations. He has blood pressure has been low intermittently, but he denies syncope/presyncope. No other questions or concerns at bedside. He did take his medications this morning. Confirms allergy to penicillin with hives, no other medication allergies. Denies tobacco use. Social alcohol/wine use. Full code Allergies Allergy/AdvReac Type Severity Reaction Status Date / Time Penicillins AdvReac Hives Verified 04/05/24 12:14 Home Medications Medication Instructions Recorded Confirmed Type vitamin E (dl, acetate) 450 mg 1,000 units PO 3XWK #30 caps 01/12/20 04/05/24 Rx (1,000 unit) capsule mecobalamin (vitamin B12) 1,000 1,000 mcg PO DAILY 12/09/23 04/05/24 History mcg chewable tablet pantoprazole 40 mg tablet,delayed 40 mg PO DAILY #90 tabs 02/02/24 04/05/24 Rx release terazosin 5 mg capsule 5 mg PO DAILY #90 caps 02/16/24 04/05/24 Rx sertraline 25 mg tablet 25 mg PO DAILY 03/11/24 04/05/24 History telmisartan 20 mg tablet 0 mg PO DAILY 03/11/24 04/05/24 History apixaban 2.5 mg tablet (Eliquis) 2.5 mg PO BID 30 days #60 tabs 03/19/24 04/05/24 Rx clopidogrel 75 mg tablet 75 mg PO QAM 30 days #30 tabs 03/19/24 04/05/24 Rx furosemide 20 mg tablet (Lasix) 20 mg PO DAILY #30 tabs 06/21/24 07/08/24 Rx metoprolol succinate 50 mg 50 mg PO QAM 30 days #30 tabs 03/19/24 04/05/24 Rx tablet,extended release 24 hr amiodarone 200 mg tablet 400 mg (2 x 200 mg) PO BIDM #30 04/02/24 04/05/24 Rx tabs Past Med/Surg History Problem List PNA (pneumonia) Mitral regurgitation NSTEMI (non-ST elevated myocardial infarction) Elevated troponin (Acute) Diarrhea (Acute) HFrEF (heart failure with reduced ejection fraction) History of non-ST elevation myocardial infarction (NSTEMI) Diarrhea Atrial fibrillation with RVR (Acute) PAF (paroxysmal atrial fibrillation) Abnormal ultrasound of abdomen Multiple ectopic atrial beats Cardiomyopathy Chronic kidney disease Acute kidney injury Acute systolic (congestive) heart failure Elevated troponin Supraventricular tachycardia Acute non-ST elevation myocardial infarction (NSTEMI) (Acute) Pulmonary edema (Acute) Anxiety and depression Impaired glucose metabolism Elevated PSA (Chronic) 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) Hiatal hernia with GERD (Chronic) HTN (hypertension) (Chronic) Surgical History S/P adenoidectomy 1944 S/P tonsillectomy 1944 Family History Father Cardiac disorder Hypertension Myocardial infarction, Onset Age: 69 Brother Cardiac disorder Hypertension Denies family history of Ovarian cancer Prostate cancer Breast cancer Lung cancer Colorectal cancer Social History Smoking Status: Never smoker Tobacco Type: Cigarettes and Cigars Second Hand Exposure: No; Do You Dip or Chew Tobacco: No; Hx Alcohol Use: Yes Alcohol type: wine Hx Substance Use: No Preferred Language: Emirati Communication Ability: Effective Visual Impairment: No Limitations Hearing Ability: Hard of Hearing Audio Tape Librarian Required: No Beliefs That Will Affect Care: None marital status: / Current Living Situation: Alone Current Living Situation Comment: Private Home Alone current occupational status: retired Feels Safe at Home: Yes Childhood Exposure to Second-Hand Smoke: No Diet: regular Diet Comment: regular caffeine: Yes during the past year weight has: remained stable Dental Care, Regularly: Yes Physical Activity Frequency: Daily Physical Activity Frequency Comment: walk, outside work Seatbelt Use: always Sunscreen Use: No Assistive Devices: Walker Physical Exam Physical Exam: General: A&Ox3. NAD. Cooperative. HEENT: Atraumatic, normocephalic. Very [place]. Vision grossly intact, [place]. Pulm: +bibasilar crackles. No wheezing. Diminished. Symmetrical chest rise. No increased work of breathing. No respiratory distress. Cardiac: RRR, -mrg. Radial pulses intact and symmetrical. +JVD Abdominal: Nontender, nondistended, soft. BS present. Ext: 3+ pitting edema bilat Results & Data Results & Data Vital Signs (Past 12 Hours) Vital Signs Temp Pulse Pulse Resp BP BP Pulse Ox 04/05/24 15:48 66 22 110/71 97 04/05/24 14:21 36.7 C 67 18 104/68 98 O2 Del Method 04/05/24 15:48 Room Air 04/05/24 14:21 Room Air PG Care Time/CCT Total # of Minutes Spent Total Time Spent with Patient: Total time spent is greater than 50% in coordination of care (as documented) at patient's floor/unit and/or counseling patient: Coding Level of Care Code 97667 INT INP/OBS CARE 375MIN Diagnoses HFrEF (heart failure with reduced ejection fraction) I50.20 PNA (pneumonia) J18.9 Chronic kidney disease N18.9 PAF (paroxysmal atrial fibrillation) I48.0
--- NOTE | 2024-04-05 18:21 | Emergency Department Note ---
History of Present Illness General Chief complaint: Swelling/Edema to Extremity Stated complaint: Fluid Retention Time Seen by Provider: 04/05/24 15:40 Source: patient and family History of Present Illness Provider complaint: Fluid overloaded 88-year-old male presents emergency department family for fluid overload. Patient reports he has been feeling increasingly weak short of breath and having leg swelling. There is been 15 pound increase in weight since last week. Family reports they were sent here by the PCP to be admitted because they felt the patient was too weak to be at home. Home Medications Medication Instructions Recorded Confirmed Type vitamin E (dl, acetate) 450 mg 1,000 units PO 3XWK #30 caps 01/12/20 04/05/24 Rx (1,000 unit) capsule mecobalamin (vitamin B12) 1,000 1,000 mcg PO DAILY 12/09/23 04/05/24 History mcg chewable tablet pantoprazole 40 mg tablet,delayed 40 mg PO DAILY #90 tabs 02/02/24 04/05/24 Rx release terazosin 5 mg capsule 5 mg PO DAILY #90 caps 02/16/24 04/05/24 Rx sertraline 25 mg tablet 25 mg PO DAILY 03/11/24 04/05/24 History telmisartan 20 mg tablet 0 mg PO DAILY 03/11/24 04/05/24 History apixaban 2.5 mg tablet (Eliquis) 2.5 mg PO BID 30 days #60 tabs 03/19/24 04/05/24 Rx clopidogrel 75 mg tablet 75 mg PO QAM 30 days #30 tabs 03/19/24 04/05/24 Rx furosemide 20 mg tablet (Lasix) 20 mg PO DAILY #30 tabs 03/19/24 04/05/24 Rx metoprolol succinate 50 mg 50 mg PO QAM 30 days #30 tabs 03/19/24 04/05/24 Rx tablet,extended release 24 hr amiodarone 200 mg tablet 400 mg (2 x 200 mg) PO BIDM #30 04/02/24 04/05/24 Rx tabs Allergies Allergy/AdvReac Type Severity Reaction Status Date / Time Penicillins AdvReac Hives Verified 04/05/24 12:14 Past Med/Surg History Problem List (Updated 04/05/24 @ 18:21 by Bruno Hayward MD) Fluid overload (Acute) CHF exacerbation (Acute) PNA (pneumonia) Mitral regurgitation NSTEMI (non-ST elevated myocardial infarction) Elevated troponin (Acute) Diarrhea (Acute) HFrEF (heart failure with reduced ejection fraction) History of non-ST elevation myocardial infarction (NSTEMI) Diarrhea Atrial fibrillation with RVR (Acute) PAF (paroxysmal atrial fibrillation) Abnormal ultrasound of abdomen Multiple ectopic atrial beats Cardiomyopathy Chronic kidney disease Acute kidney injury Acute systolic (congestive) heart failure Elevated troponin Supraventricular tachycardia Acute non-ST elevation myocardial infarction (NSTEMI) (Acute) Pulmonary edema (Acute) Anxiety and depression Impaired glucose metabolism Elevated PSA (Chronic) 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) Hiatal hernia with GERD (Chronic) HTN (hypertension) (Chronic) Surgical History S/P adenoidectomy 1944 S/P tonsillectomy 1944 Family History Father Cardiac disorder Hypertension Myocardial infarction, Onset Age: 69 Brother Cardiac disorder Hypertension Denies family history of Ovarian cancer Prostate cancer Breast cancer Lung cancer Colorectal cancer Social History Smoking Status: Never smoker Tobacco Type: Cigarettes and Cigars Second Hand Exposure: No; Do You Dip or Chew Tobacco: No; Hx Alcohol Use: Yes Alcohol type: wine Hx Substance Use: No Preferred Language: Zimbabwean Communication Ability: Effective Visual Impairment: No Limitations Hearing Ability: Hard of Hearing Airfield Manager Required: No Beliefs That Will Affect Care: None marital status: / Current Living Situation: Alone Current Living Situation Comment: Private Home Alone current occupational status: retired Feels Safe at Home: Yes Childhood Exposure to Second-Hand Smoke: No Diet: regular Diet Comment: regular caffeine: Yes during the past year weight has: remained stable Dental Care, Regularly: Yes Physical Activity Frequency: Daily Physical Activity Frequency Comment: walk, outside work Seatbelt Use: always Sunscreen Use: No Assistive Devices: Walker Physical Exam Vital Signs Vital Signs - 24 hr 04/05/24 14:21 04/05/24 15:48 04/05/24 16:12 Temperature 36.7 C Temperature Source Temporal Artery Scan Pulse Rate 67 69 Pulse Rate [Apical] 66 Pulse Rate from SpO2 Sensor 67 Respiratory Rate 18 22 23 Respiratory Effort / Characteristics Non-Labored Spontaneous Non-Labored Spontaneous Respiratory Depth Normal Normal Respiratory Pattern Regular Blood Pressure 104/68 Blood Pressure [Right Arm] 110/71 Blood Pressure Mean 80 Blood Pressure Mean [Right Arm] 84 Blood Pressure Position Sitting Pulse Oximetry 98 97 96 Oxygen Delivery Method Room Air Room Air Sepsis Recent Fever Within 48 Hours No Sepsis New/Unexplained Change in Mental Status No Sepsis Action Taken by Nursing No Action Required 04/05/24 16:45 04/05/24 16:54 04/05/24 17:12 Temperature Temperature Source Pulse Rate 69 69 Pulse Rate [Apical] Pulse Rate from SpO2 Sensor 67 69 Respiratory Rate 20 23 Respiratory Effort / Characteristics Respiratory Depth Respiratory Pattern Blood Pressure 116/73 Blood Pressure [Right Arm] Blood Pressure Mean 90 Blood Pressure Mean [Right Arm] Blood Pressure Position Pulse Oximetry 96 95 Oxygen Delivery Method Room Air Sepsis Recent Fever Within 48 Hours Sepsis New/Unexplained Change in Mental Status Sepsis Action Taken by Nursing 04/05/24 17:13 04/05/24 17:15 04/05/24 17:27 Temperature Temperature Source Pulse Rate 69 71 Pulse Rate [Apical] Pulse Rate from SpO2 Sensor 63 66 Respiratory Rate 18 20 Respiratory Effort / Characteristics Respiratory Depth Respiratory Pattern Blood Pressure Blood Pressure [Right Arm] 116/73 Blood Pressure Mean Blood Pressure Mean [Right Arm] 87 Blood Pressure Position Pulse Oximetry 94 94 Oxygen Delivery Method Sepsis Recent Fever Within 48 Hours Sepsis New/Unexplained Change in Mental Status Sepsis Action Taken by Nursing 04/05/24 17:30 04/05/24 17:30 04/05/24 17:30 Temperature Temperature Source Pulse Rate Pulse Rate [Apical] Pulse Rate from SpO2 Sensor Respiratory Rate Respiratory Effort / Characteristics Respiratory Depth Respiratory Pattern Blood Pressure 126/82 126/82 126/82 Blood Pressure [Right Arm] Blood Pressure Mean 96 96 96 Blood Pressure Mean [Right Arm] Blood Pressure Position Pulse Oximetry Oxygen Delivery Method Sepsis Recent Fever Within 48 Hours Sepsis New/Unexplained Change in Mental Status Sepsis Action Taken by Nursing 04/05/24 17:30 04/05/24 17:33 Temperature Temperature Source Pulse Rate 61 Pulse Rate [Apical] Pulse Rate from SpO2 Sensor 63 Respiratory Rate 15 Respiratory Effort / Characteristics Respiratory Depth Respiratory Pattern Blood Pressure 126/82 Blood Pressure [Right Arm] Blood Pressure Mean 96 Blood Pressure Mean [Right Arm] Blood Pressure Position Pulse Oximetry 96 Oxygen Delivery Method Sepsis Recent Fever Within 48 Hours Sepsis New/Unexplained Change in Mental Status Sepsis Action Taken by Nursing Physical Exam GENERAL: oriented to person, place, and time. appears well-developed and well- nourished. HENT: Exam performed. - Head: Normocephalic and atraumatic. EYES: Conjunctivae and EOM are normal. Right eye exhibits no discharge. Left eye exhibits no discharge. No scleral icterus. NECK: Normal range of motion. Neck supple. No JVD present. CV: Normal rate, regular rhythm, normal heart sounds and intact distal pulses. 3+ pitting edema of the bilateral lower extremities. Palpable radial pulses bue. PULM/CHEST: Rales bilaterally. ABD: The abdomen is soft. There is no tenderness. NEURO: Motor and sensation grossly intact. SKIN: Skin is warm and dry. He is not diaphoretic. PSYCH: normal mood and affect. Behavior is normal. Judgment and thought content normal. Course Course 1539: The patient was evaluated in room B6. A complete history and physical exam was performed Administered Medications Discontinued Medications Furosemide (Furosemide 40 Mg/4 Ml Vial) 40 mg IV ONE ONE Stop: 04/05/24 15:48 Last Admin: 04/05/24 15:54 Dose: 40 mg Documented By: BRUNO Medical Decision Making Medical Records Attestation: I reviewed the patient's medical records. External medical records reviewed. Patient was referred here by his PCP Gabino Ortega. Patient has an echo done on March 11 which showed 20 to 25% with severe hypokinesis. Patient was started on Lasix on April 02. Patient was to be seen by CHF clinic but the family requested to come to the emergency department. Laboratory Data Attestation: I reviewed the patient's lab results. 04/05/24 14:36 04/05/24 14:36 Lab Results 04/05/24 04/05/24 Range/Units 14:36 16:26 WBC 11.76 H (4.8-10.8) K/ul RBC 3.65 L (4.70-6.10) M/uL Hgb 11.4 L (14.0-18.0) g/dl Hct 35.7 L (42.0-52.0) % MCV 97.8 (80.0-100.0) fL MCH 31.2 (25.0-34.0) pg MCHC 31.9 L (32.0-36.0) g/dL RDW Std Deviation 47.3 H (36.4-46.3) fL RDW Coeff of Kahlil 13.2 (11.5-14.5) % Plt Count 202 (130-400) K/uL MPV 12.1 (9.4-12.4) fL Immature Gran % (Auto) 0.8 % Neut % (Auto) 77.5 % Lymph % (Auto) 8.8 % [place] % (Auto) 10.5 % Eos % (Auto) 1.9 % Baso % (Auto) 0.5 % Neut # (Auto) 9.13 H (1.40-6.50) K/uL Lymph # (Auto) 1.03 L (1.20-3.40) K/uL [place] # (Auto) 1.23 H (0.11-0.59) K/uL Eos # (Auto) 0.22 (0.00-0.50) K/uL Baso # (Auto) 0.06 (0.00-0.20) K/uL Immature Gran # (Auto) 0.09 (0.01-0.20) K/uL PT 14.0 H (9.0-12.0) Seconds INR 1.3 H (0.9-1.1) APTT 31 (21-31) Seconds PTT Ratio 1.2 Sodium 133 L (136-145) mmol/L Potassium 4.7 (3.5-5.1) mmol/L Chloride 104 (98-107) mmol/L Carbon Dioxide 21 (21-32) mmol/L Anion Gap 8 (3-11) BUN 51 H (6-23) mg/dl Creatinine 2.20 H (0.6-1.4) mg/dl Est Cr Clr Drug Dosing Not Reportable Est GFR ( Amer) 30.1 ml/min Est GFR (Non-Af Amer) 26.0 ml/min BUN/Creatinine Ratio 23.2 H (10-20) Glucose 105 H (70-99(Fasting)) mg/dl Calcium 8.9 (8.6-10.3) mg/dl Total Bilirubin 0.7 (0.2-1.0) mg/dl AST 15 (13-39) U/L ALT 12 (7-52) U/L Alkaline Phosphatase 66 (34-104) U/L Troponin I High Sens 229.4 H* 232.7 H* (0-20) pg/ml B-Natriuretic Peptide 1537 H (0-100) pg/ml Total Protein 6.8 (6.0-8.3) gm/dl Albumin 3.3 L (3.4-5.0) gm/dl Globulin 3.5 (2.5-4.0) gm/dl Albumin/Globulin Ratio 0.9 (0.9-2) Procalcitonin 0.05 (0-0.5) ng/ml Imaging Data Attestation: I personally reviewed and interpreted this imaging study as follows: My Impression: Chest x-ray: Cardiomegaly with cephalization Radiologist's Impression: Chest X-Ray 04/05/24 14:25 XR chest 1V not portable HISTORY: Chest pain, nonspecific COMPARISON: Chest 03/30/2024. FINDINGS: No pneumothorax. The heart remains enlarged. Progressive interstitial/vascular thickening and small bilateral pleural effusions. Left upper lobe airspace opacities have also progressed. Bibasilar airspace opacities again noted. IMPRESSION: 1. Interval progression of the left upper lobe airspace opacities likely representing a pneumonia. 2. Cardiomegaly with pulmonary edema and small bilateral pleural effusions have also slightly progressed. 3. Bibasilar densities persist. ACT 112: Negative or not required by law. Electronically signed by: Medardo Woodall M.D. 04/05/2024 3:42 PM ECG Data Attestation: I personally reviewed and interpreted this ECG as follows: Rate (beats per minute): 62 Rhythm: + normal sinus ECG Intervals/blocks: + Normal QRS, + Normal ME and + Normal QT-c ECG ST segments: + Normal ST segments MDM Narrative Cardiac monitoring: An order was placed for continuous cardiac monitoring. The monitor shows a rate of 60 with sinus rhythm interpreted by me Patient was seen during a time of extreme volume and extreme acuity. Nursing triage protocols were initiated labs and imaging was conducted by protocol in the triage area. Labs show an elevated proBNP and troponin. Chest x-ray viewed by me shows the patient is fluid overloaded. Formal radiology read is calling but the patient has infiltrates however the patient does not have a leukocytosis no fevers and no elevated procalcitonin. Chest x-ray findings thought less likely to be an infectious source. Patient be treated with Lasix and admitted to the [facility] hospitalist team. Impression & Plan CHF exacerbation, Fluid overload Discharge Plan Visit Data Chief Complaint: Swelling/Edema to Extremity Stated Complaint: Fluid Retention ED Provider: Bruno Hayward Discharge Problem: CHF exacerbation, Fluid overload Patient Disposition: Admitted As Inpatient Forms Stand Alone Forms: My [facility] Prescriptions Prescriptions: No Action pantoprazole 40 mg tablet,delayed release (DR/EC) 40 mg PO DAILY Qty: 90 1RF terazosin 5 mg capsule 5 mg PO DAILY Qty: 90 3RF vitamin E (dl, acetate) 1,000 unit capsule 1,000 units PO 3XWK Qty: 30 0RF Rx Instructions: Unable to verify OTC meds at this date/time. mecobalamin (vitamin B12) 1,000 mcg tablet,chewable 1,000 mcg PO DAILY sertraline 25 mg tablet 25 mg PO DAILY telmisartan 20 mg tablet 0 mg PO DAILY Hold Instructions: Resume on 05/29/24. Resume after cleared by your service order taker Rx Instructions: Unable to verify w/ pt at this date/time. Last filled 12/2023 x30 day supply. Original Directions: 20mg by mouth once daily metoprolol succinate 50 mg Tablet Extended Release 24 Hr 50 mg PO QAM 30 Days Qty: 30 0RF clopidogrel 75 mg Tablet 75 mg PO QAM 30 Days Qty: 30 0RF Eliquis 2.5 mg Tablet 2.5 mg PO BID 30 Days Qty: 60 0RF furosemide [Lasix] 20 mg tablet 20 mg PO DAILY Qty: 30 0RF amiodarone 200 mg Tablet 400 mg PO BIDM Qty: 30 0RF Rx Instructions: Amiodarone 400mg po BID until April 08, then decrease to Amio 200mg daily Referrals Referrals: Gabino Weaver CRNP [Primary Care Provider] -
[2024-04-05] MEDS: AMIODARONE 200 MG TAB PO ONE (18:46)
[2024-04-05] MEDS ORDERED: ACETAMINOPHEN 325 MG TAB PO PRN (19:30)
[2024-04-05] MEDS: levoFLOXacin 750 MG TAB PO SCH (20:22)
[2024-04-05] MEDS: APIXABAN 2.5 MG TAB PO SCH (20:22)
[2024-04-05] MEDS: POTASSIUM CHLORIDE CRTAB 20 MEQ TABCR PO SCH (20:23)
[2024-04-05] MEDS: MICONAZOLE NITRATE POWDER 85 GM EXT SCH (21:33)
[2024-04-06 02:30] LABS: BUN Creatinine Ratio 22.9 (10-20); Basophils # (auto) 0.05 K/uL (0.00-0.20); Basophils % (auto) 0.5 %; Calcium 8.5 mg/dl (8.6-10.3); Creatinine Clr Calc Pharmacy 26.5 ml/min; Eosinophils # (auto) 0.27 K/uL (0.00-0.50); Eosinophils % (auto) 2.6 %; Est GFR (African American) 31.8 ml/min; Est GFR (Non-African American) 27.5 ml/min; Hematocrit (blood only) 32.6 % (42.0-52.0); Hemoglobin 10.6 g/dl (14.0-18.0); Immature Granulocytes % (auto) 0.9 %; Lymphocytes # (auto) 1.04 K/uL (1.20-3.40); Lymphocytes % (auto) 9.8 %; Mean Corpuscular Hemoglobin 31.5 pg (25.0-34.0); Mean Corpuscular Hgb Conc 32.5 g/dL (32.0-36.0); Mean Corpuscular Volume 96.7 fL (80.0-100.0); Monocytes # (auto) 1.07 K/uL (0.11-0.59); Monocytes % (auto) 10.1 %; Neutrophils # (auto) 8.04 K/uL (1.40-6.50); Neutrophils % (auto) 76.1 %; Nucleated RBC # (auto) 0.02 K/uL (0.00-0.12); Nucleated RBC % (auto) 0.2 %; Platelet Count 203 K/uL (130-400); Potassium 4.1 mmol/L (3.5-5.1); RDW Coefficient of Variation 13.2 % (11.5-14.5); RDW Standard Deviation 46.9 fL (36.4-46.3); Red Blood Count 3.37 M/uL (4.70-6.10); White Blood Count 10.57 K/ul (4.8-10.8)
[2024-04-06] MEDS: PANTOprazole 40 MG TAB PO SCH ×2 (06:15→20:29)
[2024-04-06] MEDS: CYANOCOBALAMIN (B-12) 500 MCG TABLET PO SCH (08:25)
[2024-04-06] MEDS: TERAZOSIN HCL 5 MG CAP PO SCH (08:25)
[2024-04-06] MEDS: CLOPIDOGREL BISULFATE 75 MG TAB PO SCH (08:25)
[2024-04-06] MEDS: SERTRALINE HCL 50 MG TABLET PO SCH (08:25)
[2024-04-06] MEDS: METOPROLOL SUCC 50MG EXT REL TAB PO SCH (08:26)
[2024-04-06] MEDS: FUROSEMIDE 40 MG/4 ML VIAL IV SCH (08:27)
--- NOTE | 2024-04-06 10:44 | Electrocardiogram Report ---
Test Reason : Blood Pressure : / mmHG Vent. Rate : 062 BPM Atrial Rate : 062 BPM P-R Int : 154 ms QRS Dur : 090 ms QT Int : 414 ms P-R-T Axes : 061 -11 129 degrees QTc Int : 420 ms Normal sinus rhythm Low voltage QRS Poor R wave progression, consider anterior IA vs. lead placement vs. LVH Nonspecific ST abnormality Abnormal ECG When compared with ECG of 31-MAR-2024 12:21, Premature supraventricular complexes are no longer Present T wave inversion no longer evident in Inferior leads Confirmed by Elijah Guaman ([id number]) on 04/06/2024 10:43:35 AM Referred By: Gabino Weaver Confirmed By:Carl Guaman
[2024-04-06] MEDS: AMIODARONE 200 MG TAB PO SCH (18:29)
[2024-04-06] MEDS: SUCRALFATE 1 GM/10 ML UDC PO SCH (18:30)
--- NOTE | 2024-04-06 18:43 | CT Scan Report ---
CT SCAN OF THE CHEST WITHOUT IV CONTRAST CLINICAL HISTORY: Pneumonia. Dysphagia. COMPARISON STUDY: Chest x-ray dated 04/05/2024. TECHNIQUE: CT scan of the thorax was performed from the thoracic inlet to the upper abdomen. Images are reviewed in the axial, sagittal, and coronal planes. IV contrast was not administered for this ex amination. Note that the examination is suboptimal without IV contrast.. A dose lowering technique w as utilized adhering to the principles of ALARA. The examination is compromised by motion artifact. CT DOSE: 708.19 mGy.cm FINDINGS: Thyroid: Imaged portions of the thyroid gland are normal in size and attenuation. Thoracic aorta: There is atherosclerotic calcification of the thoracic aorta, which is normal in brennon shanda and demonstrates standard 3-vessel arch anatomy. Heart: The heart is enlarged and without pericardial effusion. The coronary arteries are densely calc ified. Diminished attenuation of the cardiac blood pool as compared to the myocardium suggests anemia . Lungs and pleural spaces: Evaluation of the lung parenchyma is significantly degraded by motion artif act. There are moderate pleural effusions with dependent consolidation. Patchy airspace consolidation is seen throughout the upper lobes bilaterally, left greater than right. Secretions are seen within the left mainstem bronchus. Mediastinum: There are numerous mildly enlarged mediastinal lymph nodes, which measure up to 14 mm sh ort axis. [place]: Not well assessed without IV contrast. Axillae: There is no axillary lymphadenopathy. Upper abdomen: There is a small hiatal hernia. Partially visualized upper abdominal viscera is otherw ise grossly unremarkable. Skeletal structures: The skeletal structures are osteopenic. 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 Arthritic change is seen in the shoulders. No lyt ic or blastic bony lesions are seen. IMPRESSION: 1. Moderate pleural effusions with dependent consolidation. 2. Patchy airspace consolidation is seen throughout the upper lobes bilaterally, left greater than ri ght. This could represent multifocal pneumonia, asymmetric pulmonary edema, and/or ARDS. Clinical cor relation will be required and radiographic follow-up to resolution is recommend. 3. Cardiomegaly. 4. Mediastinal lymphadenopathy is nonspecific and may be reactive. 5. Additional findings as above. ACT 112: Negative or not required by law. Electronically signed by: Angel Santoyo M.D. 04/06/2024 6:40 PM
--- NOTE | 2024-04-06 19:03 | XRay Report ---
KUB CLINICAL HISTORY: Upper abdominal pain. FINDINGS: 3 AP, portable, supine abdominal radiographs are obtained. No prior studies are available f or comparison at the time of dictation. There is a nonobstructed abdominal bowel gas pattern. No evid ence of intraperitoneal free air is seen on these supine images. There are no abnormal abdominal calc ifications. Advanced atherosclerotic calcification is seen within the abdominal aorta and splenic art zia. Phleboliths are noted in the pelvis. The skeletal structures are osteopenic and appear intact. T here is advanced lumbosacral spondylosis as well as scoliosis. Pleural effusions are seen at both cassie g bases with dependent consolidation. The heart is enlarged. IMPRESSION: 1. Nonobstructed abdominal gas pattern. 2. Pleural effusions and bibasilar consolidation. Electronically signed by: Angel Santoyo M.D. 04/06/2024 7:01 PM
--- NOTE | 2024-04-06 19:51 | Hospitalist Progress Note ---
Date of Service April 06, 2024 Assessment & Plan (1) Acute on chronic systolic heart failure: Plan: Echo 03/11/24 with EF 20-25% presumed ischemic in nature due to multiple WMAs remains on metoprolol succinate 50mg daily is decompensated on exam today cont lasix 40mg IV BID daily labs daily weights I's and O's poor candidate for TUNG or ARB or Entresto due to CKD stage 4 (2) PNA (pneumonia): Plan: question of left upper lobe pneumonia on admission cxr did have mild leukocytosis upon ER presentation procal negative Sputum culture ordered Started on Levaquin 750mg q48h on 04/05/[address] chest to determine if MALA infiltrates are due to pneumonia or if this represents focal pulmonary edema Await CT chest (3) PAF (paroxysmal atrial fibrillation): Plan: on 03/31/24 Dr Wong, [facility] [place] Cardiology, advised -- * Amiodarone 400 mg p.o. twice daily for 8 days * then 200 mg once daily thereafter he is currently on 400mg once daily can do this for another 2-3 days then would back down to the 200mg/day continue Eliquis 2.5mg BID he remains in NSR (4) Dysphagia: Plan: speech therapy consult increase PPI to BID dosing add carafate (5) Odynophagia: Plan: increase PPI to BID dosing add carafate 1gm QID by his report he had a food bolus requiring EGD disimpaction at [facility] years ago CT chest might help explain his odynophagia as we can see the esophagus on that imaging consider GI consultation if necessary speech therapy consult requested for his dysphagia (6) Cardiomyopathy: Plan: EF 20-25% presumed ischemic in nature due to multiple wall motion abnormalities seen on February 2023 echo there had been some consideration given to pursuing cardiac cath but this has been deferred due to multiple issues including his advanced CKD at this time he is a poor candidate for TUNG or ARB or Entresto due to CKD stage 4 cont lasix cont meto succ (7) Elevated troponin: Plan: peak HS troponin 232 likely myocardial demand ischemia in setting of #1 above this troponin is significantly less than what his levels were during his prior hospitalization peak then was 4583 (8) BPH with obstruction/lower urinary tract symptoms: Plan: cont terazosin (9) HTN (hypertension): Plan: controlled cont meto succ cont terazosin (10) Chronic kidney disease, stage IV (severe): Plan: baseline CrCl 20s baseline Cr high 1's daily BMP while here due to IV diuretics Plan DVT proph - Eliquis BID I updated pt's nephew by phone this evening nephew expressed concern that his uncle can't live independently any longer and is hopeful he can be placed again in a facility social work to be involved of course PT, OT evals requested speech therapy eval requested due to dysphagia/odynophagia Admission and Anticipated Discharge Date Admission Date: April 05, 2024 Subjective patient's main complaint was that of dysphagia & odynophagia it was hard to get a history from him -- he was jumping from topic to topic however, he reports that there is a "lump" in his lower chest/upper abdomen he then jumps to what sounds like having had a food bolus treated at [facility] years ago via EGD he denies having had dysphagia outside the hospital recently states the dysphagia started this am? and his appetite has been poor today because of such denies vomiting I had him drink a few sips of water and with such he had mild pain in the expected location of the distal esophagus last BM was a few days ago? continues with dyspnea and LE edema although the latter is a little better today Review of Systems Review of Systems: gen - fatigue, appetite loss cv - no chest pain pulm - cough, congestion, dyspnea GI - no abd pain but feels bloated; no vomiting; see subjective portion of note Physical Exam Physical Exam: gen - NAD HENT - hearing impaired, MMM neck - JVD 2/3 way up neck heart - RRR, s1 s2, 1/6 systolic murmur LSB lungs - rales left anterior chest; right anterior chest is clear; b/l basilar rales posteriorly; no increased work of breathing abd - soft, mildly tender high epigastric region, BS+, mildly distended, no HSM ext - 1-2+ edema b/l, pulses 2+ b/l Results & Data Results & Data Vital Signs (Past 12 Hours) Vital Signs Temp Pulse Pulse Resp BP Pulse Ox O2 Del Method 04/06/24 15:06 36.5 C 70 18 116/68 91 Room Air 04/06/24 15:03 63 04/06/24 15:00 Room Air 04/06/24 11:48 36.6 C 65 18 105/65 93 Room Air 04/06/24 08:00 71 Laboratory Results Laboratory Results - last 48 hr 04/05/24 04/05/24 04/06/24 14:36 16:26 01:54 WBC 11.76 H 10.57 RBC 3.65 L 3.37 L Hgb 11.4 L 10.6 L Hct 35.7 L 32.6 L MCV 97.8 96.7 MCH 31.2 31.5 MCHC 31.9 L 32.5 RDW Std Deviation 47.3 H 46.9 H RDW Coeff of Kahlil 13.2 13.2 Plt Count 202 203 MPV 12.1 12.0 Immature Gran % (Auto) 0.8 0.9 Neut % (Auto) 77.5 76.1 Lymph % (Auto) 8.8 9.8 [place] % (Auto) 10.5 10.1 Eos % (Auto) 1.9 2.6 Baso % (Auto) 0.5 0.5 Neut # (Auto) 9.13 H 8.04 H Lymph # (Auto) 1.03 L 1.04 L [place] # (Auto) 1.23 H 1.07 H Eos # (Auto) 0.22 0.27 Baso # (Auto) 0.06 0.05 Immature Gran # (Auto) 0.09 0.10 Absolute Nucleated RBC 0.02 Nucleated RBC % (auto) 0.2 PT 14.0 H INR 1.3 H APTT 31 PTT Ratio 1.2 Sodium 133 L 134 L Potassium 4.7 4.1 Chloride 104 105 Carbon Dioxide 21 21 Anion Gap 8 8 BUN 51 H 48 H Creatinine 2.20 H 2.10 H Est Cr Clr Drug Dosing Not Reportable 26.5 Est GFR ( Amer) 30.1 31.8 Est GFR (Non-Af Amer) 26.0 27.5 BUN/Creatinine Ratio 23.2 H 22.9 H Glucose 105 H 92 Calcium 8.9 8.5 L Total Bilirubin 0.7 AST 15 ALT 12 Alkaline Phosphatase 66 Troponin I High Sens 229.4 H* 232.7 H* 189.5 H* B-Natriuretic Peptide 1537 H Total Protein 6.8 Albumin 3.3 L Globulin 3.5 Albumin/Globulin Ratio 0.9 Procalcitonin 0.05 04/06/24 04/06/24 08:18 14:04 WBC RBC Hgb Hct MCV MCH MCHC RDW Std Deviation RDW Coeff of Kahlil Plt Count MPV Immature Gran % (Auto) Neut % (Auto) Lymph % (Auto) [place] % (Auto) Eos % (Auto) Baso % (Auto) Neut # (Auto) Lymph # (Auto) [place] # (Auto) Eos # (Auto) Baso # (Auto) Immature Gran # (Auto) Absolute Nucleated RBC Nucleated RBC % (auto) PT INR APTT PTT Ratio Sodium Potassium Chloride Carbon Dioxide Anion Gap BUN Creatinine Est Cr Clr Drug Dosing Est GFR ( Amer) Est GFR (Non-Af Amer) BUN/Creatinine Ratio Glucose Calcium Total Bilirubin AST ALT Alkaline Phosphatase Troponin I High Sens 152.8 H* 134.1 H* B-Natriuretic Peptide Total Protein Albumin Globulin Albumin/Globulin Ratio Procalcitonin PG Care Time/CCT Total # of Minutes Spent Total Time Spent with Patient: Total time spent is greater than 50% in coordination of care (as documented) at patient's floor/unit and/or counseling patient: Coding Level of Care Code 66356 SUB INP/OBS CARE 3/50MIN Diagnoses Acute on chronic systolic heart failure I50.23 PNA (pneumonia) J18.9 PAF (paroxysmal atrial fibrillation) I48.0 Dysphagia R13.10 Odynophagia R13.10 Cardiomyopathy I42.9 Elevated troponin R79.89 BPH with obstruction/lower urinary tract symptoms N40.1; N13.8 HTN (hypertension) I10 Chronic kidney disease, stage IV (severe) N18.4
[2024-04-07 08:10] LABS: BUN Creatinine Ratio 21.3 (10-20); Calcium 8.2 mg/dl (8.6-10.3); Creatinine Clr Calc Pharmacy 29.7 ml/min; Est GFR (African American) 37.6 ml/min; Est GFR (Non-African American) 32.4 ml/min; Potassium 3.8 mmol/L (3.5-5.1)
--- NOTE | 2024-04-07 14:52 | Hospitalist Progress Note ---
Date of Service April 07, 2024 Assessment & Plan (1) Acute on chronic systolic heart failure: Plan: 88-year-old man with heart failure and CKD stage IV with 2 recent hospital admissions readmitted shortly after returning home with acute on chronic systolic heart failure Echo 03/11/24 with EF 20-25% presumed ischemic in nature due to multiple WMAs remains on metoprolol succinate 50mg daily continues to be decompensated with volume overload on 04/07, however, improving with respect to symptoms weight and I/O. BUN/Cr improved with diuresis thus far cont lasix 40mg IV BID daily labs daily weights I's and O's poor candidate for TUNG or ARB or Entresto due to CKD stage 4 (2) PNA (pneumonia): Plan: question of left upper lobe pneumonia on admission cxr - also could be asymmetric pulmonary edema or aspiration pneumonitis did have mild leukocytosis upon ER presentation procal negative Sputum culture ordered - not collected chest CT 04/06 with bilateral patchy upper lobe infiltrates, unable to determine whether infectious process or asymmetric pulmonary edema he does have mild mediastinal lymphadenopathy which may be reactive Started on Levaquin 750mg q48h on 04/05/24 - continue (3) PAF (paroxysmal atrial fibrillation): Plan: on 03/31/24 Dr Wong, [facility] [place] Cardiology, advised -- * Amiodarone 400 mg p.o. twice daily for 8 days * then 200 mg once daily thereafter he is currently on 400mg once daily can do this for another 1-2 days then would back down to the 200mg/day continue Eliquis 2.5mg BID he remains in NSR (4) Dysphagia: Plan: speech therapy consult - discussed with ST today plan for VFSS tomorrow increased PPI to BID dosing added carafate (5) Odynophagia: Plan: continue PPI and Carafate as above by his report he had a food bolus requiring EGD disimpaction at [facility] CT chest unrevealing esophagram tomorrow along with his VFSS (6) Cardiomyopathy: Plan: EF 20-25% presumed ischemic in nature due to multiple wall motion abnormalities seen on February 2023 echo there had been some consideration given to pursuing cardiac cath but this has been deferred due to multiple issues including his advanced CKD at this time he is a poor candidate for TUNG or ARB or Entresto due to CKD stage 4 cont lasix cont meto succ (7) Elevated troponin: Plan: peak HS troponin 232 likely myocardial demand ischemia in setting of #1 above this troponin is significantly less than what his levels were during his prior hospitalization for NSTEMI peak then was 4583 (8) BPH with obstruction/lower urinary tract symptoms: Plan: cont terazosin (9) HTN (hypertension): Plan: controlled - per PCP notes he was hypotensive at home prior to admission cont meto succ cont terazosin (10) Chronic kidney disease, stage IV (severe): Plan: baseline CrCl 20s baseline Cr high 1's daily BMP while here due to IV diuretics - stable/improving Plan DVT proph - Eliquis BID updated pt's nephew by phone 04/06 nephew expressed concern that his uncle can't live independently any longer and is hopeful he can be placed again in a facility discussed with care coordination PT, GAUTAM cummings requested Admission and Anticipated Discharge Date Admission Date: April 05, 2024 Subjective upset about doctors talking to his nephew and saying he shouldn't go home alone again breathing is much improved and generally feels better, leg edema improved dysphagia/odynophagia unchanged Physical Exam 2 Physical Exam: PHYSICAL EXAMINATION Last 24h vital signs reviewed, see documentation in flowsheet General: comfortable appearing, no distress, sitting upright in chair HEENT: Normocephalic, atraumatic, pupils round and equal, sclerae anicteric, no conjunctival injection, moist mucus membranes Lungs: Normal respiratory effort. upper lobe crackles bilaterally posteriorly, absent breath sounds both bases. No wheezing Heart: Regular rate and rhythm, no murmurs. hard to assess JVD sitting upright Abdomen: Soft, nontender, nondistended. Bowel sounds present. Extremities: Warm, dry, well-perfused. 2-3+ lower extremity edema. Neuro: Alert and oriented x self, hospital, basic situation however seems vague or forgetful and may lack insight/judgment, face symmetric, moves 4 extremities well Psych: Normal affect and behavior Results & Data Results & Data Vital Signs (Past 12 Hours) Vital Signs Temp Pulse Pulse Resp BP Pulse Ox Pulse Ox 04/07/24 12:03 92 04/07/24 11:52 36.4 C L 70 18 104/56 L 94 04/07/24 07:54 61 04/07/24 07:42 36.6 C 68 22 110/70 93 04/07/24 03:18 36.8 C 67 18 111/71 98 O2 Del Method O2 Flow Rate O2 Flow Rate 04/07/24 12:03 2 04/07/24 11:52 Nasal Cannula 2 04/07/24 07:54 04/07/24 07:42 Nasal Cannula 2 04/07/24 03:18 Nasal Cannula 2 Laboratory Results 04/06/24 01:54 04/07/24 07:04 PG Care Time/CCT Total # of Minutes Spent Total Time Spent with Patient: Total time spent is greater than 50% in coordination of care (as documented) at patient's floor/unit and/or counseling patient: Coding Level of Care Code 69039 SUB INP/OBS CARE 2/35MIN Diagnoses Acute on chronic systolic heart failure I50.23 PNA (pneumonia) J18.9 PAF (paroxysmal atrial fibrillation) I48.0 Dysphagia R13.10 Odynophagia R13.10 Cardiomyopathy I42.9 Elevated troponin R79.89 BPH with obstruction/lower urinary tract symptoms N40.1; N13.8 HTN (hypertension) I10 Chronic kidney disease, stage IV (severe) N18.4
[2024-04-08 08:32] LABS: BUN Creatinine Ratio 19.9 (10-20); Creatinine Clr Calc Pharmacy 29.1 ml/min; Est GFR (African American) 36.9 ml/min; Est GFR (Non-African American) 31.8 ml/min; Magnesium 1.6 mg/dl (1.7-2.4); Potassium 3.5 mmol/L (3.5-5.1)
--- NOTE | 2024-04-08 11:44 | Fluoroscopy Report ---
FL video swallow CLINICAL HISTORY: 88 years-old Male with asess for aspiration. Chronic dysphasia TECHNIQUE: Video fluoroscopic evaluation of swallowing was performed in the AP and lateral projection s by the speech pathology staff. The patient is fed varying consistencies of barium. FLUOROSCOPY TIME: 2.27 minutes. COMPARISON STUDY: Chest CT 04/06/2024 FINDINGS: Laryngeal penetration and aspiration noted with thin liquid barium. No additional aspiratio n identified with the other consistencies. Esophageal dysmotility. IMPRESSION: 1. Aspiration with thin liquid barium. 2. Please see the speech pathologist report for detailed findings and recommendations. ACT 112: Negative or not required by law. Electronically signed by: Josef Goff M.D. 04/08/2024 11:43 AM
--- NOTE | 2024-04-08 11:47 | Fluoroscopy Report ---
FL barium swallow CLINICAL HISTORY: 88 years-old Male with Assess for esophageal function. Dysphasia. TECHNIQUE: Barium contrast and effervescent crystals were administered to the patient under fluorosco pic examination. Multiple images were obtained and submitted for review. FLUOROSCOPY TIME: 24 seconds FLUOROSCOPY IMAGES: 34 Ka,r: 20.4 mGy COMPARISON: Video swallow study of same day. FINDINGS: During deglutition, contrast material flowed freely through the cervical esophagus with laryngeal pen etration and aspiration. The study was then terminated by the technologist. No filling defect or mucosal abnormality is identified. No abnormal stricturing or mass effect is se en. The mid to distal esophagus is well coated and distended. No abnormal stricturing or mucosal ab normality is identified. No significant reflux or hiatal hernia was demonstrated during the exam. T he GE junction is normal in appearance. IMPRESSION: Abbreviated exam which was prematurely terminated secondary to aspiration. ACT 112: Negative or not required by law. The above report was generated using voice recognition software. It may contain grammatical, syntax o r spelling errors. Electronically signed by: Josef Goff M.D. 04/08/2024 11:45 AM
[2024-04-08] MEDS: MAGNESIUM SULFATE / D5W 1 GM/100 ML BAG IV SCH (14:05)
[2024-04-08] MEDS: FUROSEMIDE 40 MG TAB PO ONE (16:03)
--- NOTE | 2024-04-08 16:52 | Hospitalist Progress Note ---
Date of Service April 08, 2024 Assessment & Plan (1) Acute on chronic systolic heart failure: Plan: 88-year-old man with heart failure and CKD stage IV with 2 recent hospital admissions readmitted shortly after returning home with acute on chronic systolic heart failure and possibly aspiration pneumonitis/pneumonia Echo 03/11/24 with EF 20-25% presumed ischemic in nature due to multiple WMAs diuresed with IV Lasix through a.m. of 04/08 currently appears near euvolemic dose 40 mg p.o. Lasix this afternoon then start 80 mg p.o. every morning. BUN/Cr improved with diuresis thus far - unchanged today remains on metoprolol succinate 50mg daily poor candidate for TUNG or ARB or Entresto due to CKD stage 4 (2) PNA (pneumonia): Plan: question of left upper lobe pneumonia on admission cxr - also could be asymmetric pulmonary edema or aspiration pneumonitis did have mild leukocytosis upon ER presentation procal negative Sputum culture ordered - not collected chest CT 04/06 with bilateral patchy upper lobe infiltrates, unable to determine whether infectious process or asymmetric pulmonary edema he does have mild mediastinal lymphadenopathy which may be reactive Started on Levaquin 750mg q48h on 04/05/24 - continue through tomorrow at least (5 days) (3) PAF (paroxysmal atrial fibrillation): Plan: on 03/31/24 Dr Wong, [facility] [place] Cardiology, advised -- * Amiodarone 400 mg p.o. twice daily for 8 days * then 200 mg once daily thereafter changed to 200 mg daily on 04/09 continue Eliquis 2.5mg BID (4) Dysphagia: Plan: speech therapy consult - has significant aspiration during VFSS, discussed with speech therapist who recommended thickener no straws and she educated him on aspiration prevention increased PPI to BID dosing added carafate (5) Odynophagia: Plan: continue PPI and Carafate as above by his report he had a food bolus requiring EGD disimpaction at [facility] ago CT chest unrevealing barium swallow 04/08 only partial study but no evidence of stricture or obstruction - will assess response to PPI, if persistent symptoms can pursue full esophagram or EGD (6) Cardiomyopathy: Plan: EF 20-25% presumed ischemic in nature due to multiple wall motion abnormalities seen on February 2023 echo there had been some consideration given to pursuing cardiac cath but this has been deferred due to multiple issues including his advanced CKD at this time he is a poor candidate for TUNG or ARB or Entresto due to CKD stage 4 cont lasix cont meto succ (7) Elevated troponin: Plan: peak HS troponin 232 likely myocardial demand ischemia in setting of #1 above this troponin is significantly less than what his levels were during his prior hospitalization for NSTEMI peak then was 4583 (8) BPH with obstruction/lower urinary tract symptoms: Plan: cont terazosin (9) HTN (hypertension): Plan: controlled - per PCP notes he was hypotensive at home prior to admission cont meto succ cont terazosin (10) Chronic kidney disease, stage IV (severe): Plan: baseline CrCl 20s baseline Cr high 1's - stable, a.m. BMP Plan Dysuria - check UA DVT proph - Eliquis BID updated pt's nephew by phone 04/06 nephew expressed concern that his uncle can't live independently any longer and is hopeful he can be placed again in a facility PT, OT recommended short rehab stay anticipate [facility] after that, discussed with child care centre manager Admission and Anticipated Discharge Date Admission Date: April 05, 2024 Subjective seen during and after short walk with physical therapy remarks that he feels like his legs are going to give out no further shortness of breath or cough leg edema improved has sensation of burning when he first begins to urinate that just started since yesterday Physical Exam 2 Physical Exam: PHYSICAL EXAMINATION Last 24h vital signs reviewed, see documentation in flowsheet General: comfortable appearing, no distress, initially ambulating with unsteady gait with walker, later seated in chair HEENT: Normocephalic, atraumatic, pupils round and equal, sclerae anicteric, no conjunctival injection, moist mucus membranes Lungs: Normal respiratory effort. mild right upper lobe crackles posteriorly, absent breath sounds both bases. No wheezing. overall clear worse today Heart: Regular rate and rhythm, no murmurs. no visible JVD sitting upright Abdomen: Soft, nontender, nondistended. Bowel sounds present. Extremities: Warm, dry, well-perfused. 2+ lower extremity edema. improved Neuro: Alert and oriented x self, hospital, basic situation however seems vague or forgetful and may lack insight/judgment, face symmetric, moves 4 extremities well Psych: Normal affect and behavior Results & Data Results & Data Vital Signs (Past 12 Hours) Vital Signs Temp Pulse Pulse Resp BP BP Pulse Ox 04/08/24 15:38 36.5 C 68 16 97/60 L 96/61 L 97 04/08/24 15:16 36.4 C L 65 15 97/59 L 96 04/08/24 14:37 71 04/08/24 13:26 04/08/24 12:32 36.3 C L 66 15 103/66 93 04/08/24 07:34 36.4 C L 70 15 118/73 92 04/08/24 07:32 76 O2 Del Method 04/08/24 15:38 Room Air 04/08/24 15:16 Room Air 04/08/24 14:37 04/08/24 13:26 Room Air 04/08/24 12:32 Room Air 04/08/24 07:34 Room Air 04/08/24 07:32 Laboratory Results 04/06/24 01:54 04/08/24 07:07 PG Care Time/CCT Total # of Minutes Spent Total Time Spent with Patient: Total time spent is greater than 50% in coordination of care (as documented) at patient's floor/unit and/or counseling patient: Coding Level of Care Code 51834 SUB INP/OBS CARE 2/35MIN Diagnoses Acute on chronic systolic heart failure I50.23 PNA (pneumonia) J18.9 PAF (paroxysmal atrial fibrillation) I48.0 Dysphagia R13.10 Odynophagia R13.10 Cardiomyopathy I42.9 Elevated troponin R79.89 BPH with obstruction/lower urinary tract symptoms N40.1; N13.8 HTN (hypertension) I10 Chronic kidney disease, stage IV (severe) N18.4
[2024-04-08 19:55] LABS: Appearance Urine Clear (Clear); Bilirubin Urine Negative (Negative); Blood Urine Negative (Negative); Color Urine Yellow; Glucose Urine UA Negative (Negative); Ketones Urine Negative (Negative); Leukocyte Esterase Urine Negative (Negative); Nitrite Urine Negative (Negative); Protein Urine Negative (Negative); Specific Gravity Urine 1.011 (1.000-1.030); Urobilinogen Urine Negative (Negative)
[2024-04-09 07:38] LABS: BUN Creatinine Ratio 20.3 (10-20); Calcium 8.1 mg/dl (8.6-10.3); Creatinine Clr Calc Pharmacy 28.8 ml/min; Est GFR (African American) 36.6 ml/min; Est GFR (Non-African American) 31.6 ml/min; Magnesium 1.9 mg/dl (1.7-2.4); Potassium 3.5 mmol/L (3.5-5.1)
[2024-04-09] MEDS: FUROSEMIDE 80 MG TAB PO SCH (07:59)
--- NOTE | 2024-04-09 18:29 | Hospitalist Progress Note ---
Date of Service April 09, 2024 Assessment & Plan (1) Acute on chronic systolic heart failure: Plan: 88-year-old man with heart failure and CKD stage IV with 2 recent hospital admissions readmitted shortly after returning home with acute on chronic systolic heart failure and possibly aspiration pneumonitis/pneumonia Echo 03/11/24 with EF 20-25% presumed ischemic in nature due to multiple WMAs diuresed with IV Lasix through a.m. of 04/08 currently appears euvolemic continue lasix 80 mg p.o. every morning. BUN/Cr improved with diuresis thus far - 38/1.9 today remains on metoprolol succinate 50mg daily Not on TUNG/ARB or Entresto due to CKD stage 4 - follow up with nephrology and cardiology to discuss candidacy (2) PNA (pneumonia): Plan: question of left upper lobe pneumonia on admission cxr - also could be asymmetric pulmonary edema or aspiration pneumonitis did have mild leukocytosis upon ER presentation procal negative Sputum culture ordered - not collected chest CT 04/06 with bilateral patchy upper lobe infiltrates, unable to determine whether infectious process or asymmetric pulmonary edema he does have mild mediastinal lymphadenopathy which may be reactive Treated with levofloxacin x 5 day course (3) PAF (paroxysmal atrial fibrillation): Plan: on 03/31/24 Dr Wong, [facility] Cardiology, advised -- * Amiodarone 400 mg p.o. twice daily for 8 days * then 200 mg once daily thereafter changed to 200 mg daily on 04/09 continue Eliquis 2.5mg BID (4) Dysphagia: Plan: speech therapy consult - has significant aspiration during VFSS, discussed with speech therapist who recommended chin tuck no straws and she educated him on aspiration prevention increased PPI to BID dosing added carafate (5) Odynophagia: Plan: seems resolved. stop carafate and continue PPI by his report he had a food bolus requiring EGD disimpaction at [facility] ago CT chest unrevealing barium swallow 04/08 only partial study but no evidence of stricture or obstruction - will assess response to PPI, if persistent symptoms can pursue full esophagram or EGD (6) Cardiomyopathy: Plan: EF 20-25% presumed ischemic in nature due to multiple wall motion abnormalities seen on February 2023 echo there had been some consideration given to pursuing cardiac cath but this has been deferred due to multiple issues including his advanced CKD -see above (7) Elevated troponin: Plan: peak HS troponin 232 likely myocardial demand ischemia in setting of #1 above this troponin is significantly less than what his levels were during his prior hospitalization for NSTEMI peak then was 4583 (8) BPH with obstruction/lower urinary tract symptoms: Plan: cont terazosin (9) HTN (hypertension): Plan: controlled - per PCP notes he was hypotensive at home prior to admission cont meto succ cont terazosin (10) Chronic kidney disease, stage IV (severe): Plan: baseline CrCl 20s baseline Cr high 1's - stable - schedule follow up with board turner Plan Dysuria - check UA - negative DVT proph - Eliquis BID updated pt's nephew by phone 04/06, 04/09 PT, OT recommended short rehab stay and family plans [facility] after that, Bill is agreeable. discussed with care director - awaiting auth for [facility] Admission and Anticipated Discharge Date Admission Date: April 05, 2024 Subjective doing well, no shortness of breath, leg edema mild at this point Physical Exam 2 Physical Exam: PHYSICAL EXAMINATION Last 24h vital signs reviewed, see documentation in flowsheet General: sitting up in chair HEENT: Normocephalic, atraumatic, pupils round and equal, sclerae anicteric, no conjunctival injection, moist mucus membranes Lungs: Normal respiratory effort. upper lobe crackles improved. no wheezing. diminished in bases Heart: Regular rate and rhythm, no murmurs. no visible JVD sitting upright Abdomen: Soft, nontender, nondistended. Bowel sounds present. Extremities: Warm, dry, well-perfused. 1+ lower extremity edema. improved Neuro: Alert and oriented x self, hospital, situation, maex4, face symmetric Results & Data Results & Data Vital Signs (Past 12 Hours) Vital Signs Temp Pulse Pulse Resp BP Pulse Ox O2 Del Method 04/09/24 15:49 58 L 04/09/24 14:49 36.4 C L 62 18 98/65 L 94 Room Air 04/09/24 11:16 36.4 C L 63 18 92/59 L 92 Room Air 04/09/24 08:33 60 04/09/24 07:43 36.6 C 71 18 112/66 93 Room Air 04/09/24 07:28 Room Air Laboratory Results 04/06/24 01:54 04/09/24 06:45 PG Care Time/CCT Total # of Minutes Spent Total Time Spent with Patient: Total time spent is greater than 50% in coordination of care (as documented) at patient's floor/unit and/or counseling patient: Coding Level of Care Code 20865 SUB INP/OBS CARE 2/35MIN Diagnoses Acute on chronic systolic heart failure I50.23 PNA (pneumonia) J18.9 PAF (paroxysmal atrial fibrillation) I48.0 Dysphagia R13.10 Odynophagia R13.10 Cardiomyopathy I42.9 Elevated troponin R79.89 BPH with obstruction/lower urinary tract symptoms N40.1; N13.8 HTN (hypertension) I10 Chronic kidney disease, stage IV (severe) N18.4
[2024-04-10 06:49] LABS: BUN Creatinine Ratio 20.8 (10-20); Calcium 8.1 mg/dl (8.6-10.3); Creatinine Clr Calc Pharmacy 29.5 ml/min; Est GFR (African American) 37.6 ml/min; Est GFR (Non-African American) 32.4 ml/min; Potassium 3.8 mmol/L (3.5-5.1)
--- NOTE | 2024-04-10 12:29 | Hospitalist Progress Note ---
Date of Service April 10, 2024 Assessment & Plan (1) Acute on chronic systolic heart failure: Plan: 88-year-old man with heart failure and CKD stage IV with two recent hospital admissions. Readmitted shortly after returning home with acute on chronic systolic heart failure and possibly aspiration pneumonitis/pneumonia Echo 03/11/24 with EF 20-25% presumed ischemic in nature due to multiple WMAs diuresed with IV Lasix through a.m. of 04/08 currently appears euvolemic continue lasix 80 mg p.o. every morning. based on I's/O and no change in weight today this dose may need to be slightly increased BUN/Cr improved with diuresis thus far - 38/1.8 today remains on metoprolol succinate 50mg daily Not on TUNG/ARB or Entresto due to CKD stage 4 - follow up with nephrology and cardiology to discuss candidacy. has upcoming follow-up with Dr. [place] and Dr. Patterson make heart failure program referral on discharge (2) PNA (pneumonia): Plan: question of left upper lobe pneumonia on admission cxr - also could be asymmetric pulmonary edema or aspiration pneumonitis did have mild leukocytosis upon ER presentation procal negative Sputum culture ordered - not collected chest CT 04/06 with bilateral patchy upper lobe infiltrates, unable to determine whether infectious process or asymmetric pulmonary edema he does have mild mediastinal lymphadenopathy which may be reactive Treated with levofloxacin x 5 day course (3) PAF (paroxysmal atrial fibrillation): Plan: continue amiodarone 200 mg daily continue Eliquis 2.5mg BID (4) Dysphagia: Plan: speech therapy consult - had significant aspiration during VFSS, discussed with speech therapist who recommended chin tuck no straws and she educated him on aspiration prevention increased PPI to BID dosing odynophagia resolved, stop Carafate (5) Odynophagia: Plan: CT chest unrevealing barium swallow 04/08 only partial study but no evidence of stricture or obstruction - seems to have resolved on twice daily PPI, stopped Carafate - if persistent symptoms can pursue full esophagram or EGD (6) Cardiomyopathy: Plan: EF 20-25% presumed ischemic in nature due to multiple wall motion abnormalities seen on February 2023 echo there had been some consideration given to pursuing cardiac cath but this has been deferred due to multiple issues including his advanced CKD -see above (7) Elevated troponin: Plan: peak HS troponin 232 likely myocardial demand ischemia in setting of #1 above this troponin is significantly less than what his levels were during his prior hospitalization for NSTEMI peak then was 4583 (8) BPH with obstruction/lower urinary tract symptoms: Plan: cont terazosin (9) HTN (hypertension): Plan: controlled - per PCP notes he was hypotensive at home prior to admission cont meto succ cont terazosin (10) Chronic kidney disease, stage IV (severe): Plan: baseline CrCl 20s baseline Cr high 1's - stable - schedule follow up with sales negotiator Plan DVT proph - Eliquis BID updated pt's nephew by phone 04/06, 04/09 PT, OT recommended short rehab stay and family plans [facility] after that, Bill is agreeable. discussed with healthcare social worker - still awaiting auth for [facility], insurance not open over the weekend so he will be here until Friday Admission and Anticipated Discharge Date Admission Date: April 05, 2024 Subjective Doing well today awaiting insurance Auth for SNF. No shortness of breath or cough. Leg edema about the same today Physical Exam 2 Physical Exam: PHYSICAL EXAMINATION Last 24h vital signs reviewed, see documentation in flowsheet General: sitting in bed awake HEENT: Normocephalic, atraumatic, pupils round and equal, sclerae anicteric, no conjunctival injection, moist mucus membranes Lungs: Normal respiratory effort. bilateral posterior upper lobe crackles still present. no wheezing. diminished but clearin bases Heart: Regular rate and rhythm, no murmurs. no visible JVD sitting upright Abdomen: Soft, nontender, nondistended. Bowel sounds present. Extremities: Warm, dry, well-perfused. 1+ lower extremity edema. unchanged Neuro: Alert and oriented x self, hospital, situation, maex4, face symmetric Results & Data Results & Data Vital Signs (Past 12 Hours) Vital Signs Temp Pulse Pulse Resp BP BP Pulse Ox 04/10/24 11:28 36.7 C 64 16 110/69 96 04/10/24 10:46 68 04/10/24 07:53 36.4 C L 65 16 107/66 90 04/10/24 07:20 04/10/24 03:17 36.7 C 66 18 112/70 94 O2 Del Method 04/10/24 11:28 Room Air 04/10/24 10:46 04/10/24 07:53 Room Air 04/10/24 07:20 Room Air 04/10/24 03:17 Room Air Laboratory Results 04/06/24 01:54 04/10/24 06:08 PG Care Time/CCT Total # of Minutes Spent Total Time Spent with Patient: Total time spent is greater than 50% in coordination of care (as documented) at patient's floor/unit and/or counseling patient: Coding Level of Care Code 31729 SUB INP/OBS CARE 2/35MIN Diagnoses Acute on chronic systolic heart failure I50.23 PNA (pneumonia) J18.9 PAF (paroxysmal atrial fibrillation) I48.0 Dysphagia R13.10 Odynophagia R13.10 Cardiomyopathy I42.9 Elevated troponin R79.89 BPH with obstruction/lower urinary tract symptoms N40.1; N13.8 HTN (hypertension) I10 Chronic kidney disease, stage IV (severe) N18.4
[2024-04-10] MEDS: AMIODARONE 200 MG TAB PO SCH (17:13)
[2024-04-10] MEDS: VALSARTAN/SACUBITRIL 26/24MG TAB PO SCH (21:17)
[2024-04-11] MEDS: METOPROLOL SUCC 25MG EXT REL TAB PO SCH (08:54)
[2024-04-11] MEDS: POTASSIUM CHLORIDE CRTAB 20 MEQ TABCR PO SCH (08:55)
--- NOTE | 2024-04-11 13:23 | Hospitalist Progress Note ---
Date of Service April 11, 2024 Assessment & Plan (1) Acute on chronic systolic heart failure: Plan: 88-year-old man with heart failure and CKD stage IV with two recent hospital admissions. Readmitted shortly after returning home with acute on chronic systolic heart failure and possibly aspiration pneumonitis/pneumonia Echo 03/11/24 with EF 20-25% presumed ischemic in nature due to multiple WMAs diuresed with IV Lasix through a.m. of 04/08 currently appears euvolemic continue lasix 80 mg p.o. every morning. BUN/Cr improved with diuresis thus far - 38/1.8 04/10. AM BMP keep same dose of lasix today. weight for today appears inaccurate. started entresto this weekend and reduced metoprolol XL to 25 mg (held this am). BP chronically low. -AM BMP has upcoming follow-up with Dr. [place] and Dr. Patterson heart failure program referral sent (2) PNA (pneumonia): Plan: possible left upper lobe pneumonia on admission cxr - also could be asymmetric pulmonary edema or aspiration pneumonitis did have mild leukocytosis upon ER presentation procal negative Sputum culture ordered - not collected chest CT 04/06 with bilateral patchy upper lobe infiltrates, unable to determine whether infectious process or asymmetric pulmonary edema he does have mild mediastinal lymphadenopathy which may be reactive Treated with levofloxacin x 5 day course Resolved (3) PAF (paroxysmal atrial fibrillation): Plan: continue amiodarone 200 mg daily, metoprolol continue Eliquis 2.5mg BID (4) Dysphagia: Plan: speech therapy consult - had significant aspiration during VFSS, discussed with speech therapist who recommended chin tuck no straws and she educated him on aspiration prevention (5) Odynophagia: Plan: CT chest unrevealing barium swallow 04/08 only partial study but no evidence of stricture or obstruction - seems to have resolved on twice daily PPI, stopped Carafate - if persistent symptoms can pursue full esophagram or EGD (6) Cardiomyopathy: Plan: EF 20-25% presumed ischemic in nature due to multiple wall motion abnormalities seen on February 2023 echo there had been some consideration given to pursuing cardiac cath but this has been deferred due to multiple issues including his advanced CKD -see above (7) Elevated troponin: Plan: peak HS troponin 232 likely myocardial demand ischemia in setting of #1 above this troponin is significantly less than what his levels were during his prior hospitalization for NSTEMI peak then was 4583 (8) BPH with obstruction/lower urinary tract symptoms: Plan: cont terazosin (9) HTN (hypertension): Plan: history of hypertension, now relatively hypotensive on HF regimen. (10) Chronic kidney disease, stage IV (severe): Plan: baseline CrCl 20s baseline Cr high 1's - stable - has scheduled follow up with burlap spreader Plan DVT proph - Eliquis BID updated pt's nephew by phone 04/06, 04/09 PT, OT recommended short rehab stay and family plans [facility] after that, Bill is agreeable. discussed with elderly caregiver - still awaiting auth for [facility], insurance not open over the weekend so he will be here until Friday Admission and Anticipated Discharge Date Admission Date: April 05, 2024 Subjective bp low this AM and metoprolol held, asymptomatic, he feels like he's moving around better not short of breath, leg edema same to slightly better Physical Exam 2 Physical Exam: PHYSICAL EXAMINATION Last 24h vital signs reviewed, see documentation in flowsheet General: seen getting from chair back into bed HEENT: Normocephalic, atraumatic, pupils round and equal, sclerae anicteric, no conjunctival injection, moist mucus membranes Lungs: Normal respiratory effort. bilateral upper lobe crackles now very faint.. no wheezing. diminished in bases Heart: Regular rate and rhythm, no murmurs. no visible JVD sitting upright Abdomen: Soft, nontender, nondistended. Bowel sounds present. Extremities: Warm, dry, well-perfused. 1-2+ lower extremity edema. feet and ankles. similar to slightly improved. Neuro: Alert and oriented x self, hospital, situation, maex4, face symmetric Results & Data Results & Data Vital Signs (Past 12 Hours) Vital Signs Temp Pulse Resp BP Pulse Ox O2 Del Method 04/11/24 08:00 Room Air 04/11/24 07:24 36.6 C 99 H 16 99/64 L 95 Room Air Laboratory Results 04/06/24 01:54 04/10/24 06:08 PG Care Time/CCT Total # of Minutes Spent Total Time Spent with Patient: Total time spent is greater than 50% in coordination of care (as documented) at patient's floor/unit and/or counseling patient: Coding Level of Care Code 81158 SUB INP/OBS CARE 2/35MIN Diagnoses Acute on chronic systolic heart failure I50.23 PNA (pneumonia) J18.9 PAF (paroxysmal atrial fibrillation) I48.0 Dysphagia R13.10 Odynophagia R13.10 Cardiomyopathy I42.9 Elevated troponin R79.89 BPH with obstruction/lower urinary tract symptoms N40.1; N13.8 HTN (hypertension) I10 Chronic kidney disease, stage IV (severe) N18.4
[2024-04-11] MEDS: VALSARTAN/SACUBITRIL 26/24MG TAB PO SCH (20:54)
[2024-04-12 06:56] LABS: BUN Creatinine Ratio 19.7 (10-20); Calcium 8.1 mg/dl (8.6-10.3); Creatinine Clr Calc Pharmacy 29.7 ml/min; Est GFR (African American) 38.9 ml/min; Est GFR (Non-African American) 33.6 ml/min; Potassium 3.5 mmol/L (3.5-5.1)
[2024-04-12] MEDS: METOPROLOL SUCC 25MG EXT REL TAB PO SCH (07:39)
--- NOTE | 2024-04-12 11:11 | Discharge Summary ---
Discharge Summary Date of Service April 12, 2024 Principal Dx & Hospital Course #1 = Principal Diagnosis (1) Acute on chronic systolic heart failure: 88-year-old man with heart failure and CKD stage IV with two recent hospital admissions. Readmitted shortly after returning home with acute on chronic systolic heart failure and possibly aspiration pneumonitis/pneumonia Echo 03/11/24 with EF 20-25% presumed ischemic in nature due to multiple WMAs diuresed with IV Lasix 80 bid through a.m. of 04/08 then continued on lasix 80 mg po qAM. He continued to diurese on this dose of po lasix. Weight this admission 91 mg --> 80.6 kg. BUN/Cr improved with diuresis thus far - Cr improved from 2.2 to 1.78 He has been chronically hypotensive with SBPs in 90s-110/x and asymptomatic. This weekend I continued lasix 80 mg po daily and tried initiation of low dose entresto 0.5 mg bid with reduction of metoprolol dose, however, he became more hypotensive with this from intolerance of entresto and/or mildly overdiuresed though BUN/Cr continued to downtrend. On 04/12 I held lasix and metoprolol and stopped entresto. Plan to resume lasix at lower dose of 40 mg daily, resume metoprolol succinate at 25 mg, and continue hold entresto. Added low dose spironolactone. Can consider trialing entresto again if BPs improve a little bit with less diuretic. Recommend BMP in 5-7 days to check potassium and renal function. Currently has mild pedal and hwang edema. Continues to have bilateral upper lobe crackles on exam that appear to be related to aspiration pneumonitis rather than pulmonary edema. Continue to monitor weight and volume status. has upcoming follow-up with abstracter Dr. Patterson [facility] [place] referral sent (2) PNA (pneumonia): possible left upper lobe pneumonia on admission cxr - also could be asymmetric pulmonary edema or aspiration pneumonitis did have mild leukocytosis upon ER presentation procal negative Sputum culture ordered - not collected chest CT 04/06 with bilateral patchy upper lobe infiltrates, unable to determine whether infectious process or asymmetric pulmonary edema he does have mild mediastinal lymphadenopathy which may be reactive Treated with levofloxacin x 5 day course Resolved (3) PAF (paroxysmal atrial fibrillation): continue amiodarone 200 mg daily, metoprolol continue Eliquis 2.5mg BID (4) Dysphagia: speech therapy consult - had significant aspiration during VFSS, discussed with speech therapist who recommended chin tuck no straws and she educated him on aspiration prevention (5) Odynophagia: CT chest unrevealing barium swallow 04/08 only partial study but no evidence of stricture or obstruction - symptoms resolved on twice daily PPI, stopped Carafate - if persistent symptoms can pursue full esophagram or EGD (6) Cardiomyopathy: EF 20-25% presumed ischemic in nature due to multiple wall motion abnormalities seen on February 2023 echo there had been some consideration given to pursuing cardiac cath but this has been deferred due to multiple issues including his advanced CKD -see above (7) Elevated troponin: peak HS troponin 232 likely myocardial demand ischemia in setting of #1 above this troponin is significantly less than what his levels were during his prior hospitalization for NSTEMI peak then was 4583 (8) BPH with obstruction/lower urinary tract symptoms: cont terazosin consider stopping/holding if low BP contiues to be a problem (9) HTN (hypertension): history of hypertension, now relatively hypotensive on HF regimen. (10) Chronic kidney disease, stage IV (severe): baseline CrCl 20s baseline Cr high 1's - stable - monitor BMP and avoid nephrotoxins. Notes For Next Care Provider Please monitor weight, edema, volume status. BMP in 5-7 days. Lasix 80 mg daily was too high and resulted in continued diuresis but 20 mg dose was too low. Medication Changes From Visit Lasix to 40 mg daily (was 20) Metoprolol XL decreased from 50 --> 25 mg hypotension Amiodarone decreased from 400 mg to 200 mg daily because he completed his oral loading phase Olmesartan stopped - if he tolerates in future should be replaced with entresto ideally. Admission HPI Per Admitting Provider Richy is an 88-year-old male with a past medical history of NSTEMI, heart failure with reduced ejection fraction, CKD recently discharged 04/02/2024 after an admission for NSTEMI due to demand ischemia/type II with A-fib RVR at the time presents to the ER with reported 60 pounds of weight gain over 3 days of bilateral leg swelling and fatigue. On ER assessment chest x-ray shows interval progression of left upper lobe airspace opacity suspicious for pneumonia, cardiomegaly with pulmonary edema and small bilateral pleural effusions, persistent bibasilar densities. She does have a slight leukocytosis of 11.76 with neutrophilic predominance but no granulocytic expansion. Creatinine is upper limit of patient's normal at 2.2, troponin is elevated at 229 but down trended from prior on 03/31 at 4552, BNP markedly elevated at 1537.3+ pitting edema Richy is seen at the bedside; he is very hard of hearing. Reports after returning home he continued to have rapidly worsening swelling in his lower extremities and weight gain. He has also not been able to sleep flat as laying flat makes him short of breath. He has had no chest pain since returning home, and is chest pain-free on admission. He denies fever, chills, night sweats. He has had a minimally productive cough since returning home. No abdominal pain, nausea, vomiting, diarrhea, constipation. No palpitations. He has blood pressure has been low intermittently, but he denies syncope/presyncope. No other questions or concerns at bedside. He did take his medications this morning. Confirms allergy to penicillin with hives, no other medication allergies. Denies tobacco use. Social alcohol/wine use. Full code Discharge Exam PHYSICAL EXAMINATION Last 24h vital signs reviewed, see documentation in flowsheet General: sitting up in bed HEENT: Normocephalic, atraumatic, pupils round and equal, sclerae anicteric, no conjunctival injection, moist mucus membranes Lungs: Normal respiratory effort. bilateral upper/mid lobe crackles unchanged. no wheezing. diminished in bases Heart: Regular rate and rhythm, no murmurs. no visible JVD sitting upright Abdomen: Soft, nontender, nondistended. Bowel sounds present. Extremities: Warm, dry, well-perfused. 1+ lower extremity edema. feet and ankles. improved. Neuro: Alert and oriented x self, hospital, situation, maex4, face symmetric Updated Medication List Medication Instructions Recorded Confirmed Type vitamin E (dl, acetate) 450 mg 1,000 units PO 3XWK #30 caps 01/12/20 04/05/24 Rx (1,000 unit) capsule mecobalamin (vitamin B12) 1,000 1,000 mcg PO DAILY 12/09/23 04/05/24 History mcg chewable tablet sertraline 25 mg tablet 25 mg PO DAILY 03/11/24 04/05/24 History apixaban 2.5 mg tablet (Eliquis) 2.5 mg PO BID 30 days #60 tabs 03/19/24 04/05/24 Rx clopidogrel 75 mg tablet 75 mg PO QAM 30 days #30 tabs 03/19/24 04/05/24 Rx amiodarone 200 mg tablet 200 mg PO DAILY@1700 #0 tabs 04/12/24 Rx furosemide 40 mg tablet 40 mg PO QAM #1 tab 04/12/24 Rx metoprolol succinate 25 mg 25 mg PO QAM #0 tabs 04/12/24 Rx tablet,extended release 24 hr pantoprazole 40 mg tablet,delayed 40 mg PO BID #0 tabs 04/12/24 Rx release spironolactone 25 mg tablet 12.5 mg (1/2 x 25 mg) PO DAILY #1 04/12/24 Rx tab terazosin 5 mg capsule 5 mg PO HS #90 caps 04/12/24 04/05/24 Rx Hospital Stay Data Consultations 04/05/24 15:43 ED Decision to Admit Stat 04/10/24 12:34 [facility] [place] [facility] Referral Routine Diagnostic Imagining Performed 04/06/24 16:42 CT chest diagnostic wo con Urgent 04/08/24 10:30 FL barium swallow Routine 04/08/24 11:00 FL video swallow Routine Chest X-Ray 04/05/24 14:25 XR chest 1V not portable HISTORY: Chest pain, nonspecific COMPARISON: Chest 03/30/2024. FINDINGS: No pneumothorax. The heart remains enlarged. Progressive interstitial/vascular thickening and small bilateral pleural effusions. Left upper lobe airspace opacities have also progressed. Bibasilar airspace opacities again noted. IMPRESSION: 1. Interval progression of the left upper lobe airspace opacities likely representing a pneumonia. 2. Cardiomegaly with pulmonary edema and small bilateral pleural effusions have also slightly progressed. 3. Bibasilar densities persist. ACT 112: Negative or not required by law. Electronically signed by: Medardo Woodall M.D. 04/05/2024 3:[address] 04/06/24 16:42 CT SCAN OF THE CHEST WITHOUT IV CONTRAST CLINICAL HISTORY: Pneumonia. Dysphagia. COMPARISON STUDY: Chest x-ray dated 04/05/2024. TECHNIQUE: CT scan of the thorax was performed from the thoracic inlet to the upper abdomen. Images are reviewed in the axial, sagittal, and coronal planes. IV contrast was not administered for this examination. Note that the examination is suboptimal without IV contrast.. A dose lowering technique was utilized adhering to the principles of ALARA. The examination is compromised by motion artifact. CT DOSE: 708.19 mGy.cm FINDINGS: Thyroid: Imaged portions of the thyroid gland are normal in size and attenuation. Thoracic aorta: There is atherosclerotic calcification of the thoracic aorta, which is normal in caliber and demonstrates standard 3-vessel arch anatomy. Heart: The heart is enlarged and without pericardial effusion. The coronary arteries are densely calcified. Diminished attenuation of the cardiac blood pool as compared to the myocardium suggests anemia. Lungs and pleural spaces: Evaluation of the lung parenchyma is significantly degraded by motion artifact. There are moderate pleural effusions with dependent consolidation. Patchy airspace consolidation is seen throughout the upper lobes bilaterally, left greater than right. Secretions are seen within the left mainstem bronchus. Mediastinum: There are numerous mildly enlarged mediastinal lymph nodes, which measure up to 14 mm short axis. [place]: Not well assessed without IV contrast. Axillae: There is no axillary lymphadenopathy. Upper abdomen: There is a small hiatal hernia. Partially visualized upper abdominal viscera is otherwise grossly unremarkable. Skeletal structures: The skeletal structures are osteopenic. 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 Arthritic change is seen in the shoulders. No lytic or blastic bony lesions are seen. IMPRESSION: 1. Moderate pleural effusions with dependent consolidation. 2. Patchy airspace consolidation is seen throughout the upper lobes bilaterally, left greater than right. This could represent multifocal pneumonia, asymmetric pulmonary edema, and/or ARDS. Clinical correlation will be required and radiographic follow-up to resolution is recommend. 3. Cardiomegaly. 4. Mediastinal lymphadenopathy is nonspecific and may be reactive. 5. Additional findings as above. ACT 112: Negative or not required by law. Electronically signed by: Angel Santoyo M.D. 04/06/2024 6:40 PM KUB X-Ray 04/06/24 16:42 KUB CLINICAL HISTORY: Upper abdominal pain. FINDINGS: 3 AP, portable, supine abdominal radiographs are obtained. No prior studies are available for comparison at the time of dictation. There is a nonobstructed abdominal bowel gas pattern. No evidence of intraperitoneal free air is seen on these supine images. There are no abnormal abdominal calcifications. Advanced atherosclerotic calcification is seen within the abdominal aorta and splenic artery. Phleboliths are noted in the pelvis. The skeletal structures are osteopenic and appear intact. There is advanced lumbosacral spondylosis as well as scoliosis. Pleural effusions are seen at both lung bases with dependent consolidation. The heart is enlarged. IMPRESSION: 1. Nonobstructed abdominal gas pattern. 2. Pleural effusions and bibasilar consolidation. Electronically signed by: Angel Santoyo M.D. 04/06/2024 7:01 PM Barium Swallow X-Ray 04/08/24 10:30 FL barium swallow CLINICAL HISTORY: 88 years-old Male with Assess for esophageal function. Dysphasia. TECHNIQUE: Barium contrast and effervescent crystals were administered to the patient under fluoroscopic examination. Multiple images were obtained and submitted for review. FLUOROSCOPY TIME: 24 seconds FLUOROSCOPY IMAGES: 34 Ka,r: 20.4 mGy COMPARISON: Video swallow study of same day. FINDINGS: During deglutition, contrast material flowed freely through the cervical esophagus with laryngeal penetration and aspiration. The study was then terminated by the technologist. No filling defect or mucosal abnormality is identified. No abnormal stricturing or mass effect is seen. The mid to distal esophagus is well coated and distended. No abnormal stricturing or mucosal abnormality is identified. No significant reflux or hiatal hernia was demonstrated during the exam. The GE junction is normal in appearance. IMPRESSION: Abbreviated exam which was prematurely terminated secondary to aspiration. ACT 112: Negative or not required by law. The above report was generated using voice recognition software. It may contain grammatical, syntax or spelling errors. Electronically signed by: Josef Goff M.D. 04/08/2024 11:45 AM Videofluoroscopic Swallow 04/08/24 11:00 FL video swallow CLINICAL HISTORY: 88 years-old Male with asess for aspiration. Chronic dysphasia TECHNIQUE: Video fluoroscopic evaluation of swallowing was performed in the AP and lateral projections by the speech pathology staff. The patient is fed varying consistencies of barium. FLUOROSCOPY TIME: 2.27 minutes. COMPARISON STUDY: Chest CT 04/06/2024 FINDINGS: Laryngeal penetration and aspiration noted with thin liquid barium. No additional aspiration identified with the other consistencies. Esophageal dysmotility. IMPRESSION: 1. Aspiration with thin liquid barium. 2. Please see the speech pathologist report for detailed findings and recommendations. ACT 112: Negative or not required by law. Electronically signed by: Josef Goff M.D. 04/08/2024 11:43 AM 04/06/24 01:54 04/12/24 05:34 Pending Results Patient Have Any Pending Studies at Discharge: No Discharge Instructions Given to Patient (Per Discharging Provider) PT, OT and ST evaluate and treat Check weight 3x a week and monitor edema, adjust diuretics accordingly BMP in 1 week (change in diuretic dose, CKD-4) BP mildly low 04/12 because of trial on entresto and may be mildly over-diuresed on 80 mg po daily lasix, entresto stopped for now, metoprolol and diuretics held 04/12 and plan to resume metoprolol and lasix at lower dose (40 mg) on 04/13. SBPs have generally been running from 90s-110/x and asymptomatic. Has follow up scheduled with cardiology Dr. Patterson I also made referral to [facility] Heart Failure clinic Speech Therapy discharge instructions: 1.Soft Bite sized: IDDSI 6. Thin Liquids: IDDSI 0 with chin tuck only. a.Pts aspiration is silent b.No straws c.Cues needed for chin tuck d.Upright and alert for all intake and 60 minutes after 2.Oral hygiene a.Clean all surfaces of the mouth before eating to reduce the amount of bacteria that can be aspirated. 3.Aspiration precautions: small sips, slow rate, no straws, fully upright and alerted, alt solids and liquids. 4.Reflux precautions as outlined (alt= alternate) , ( HOB= head of bed). 5.Pt would be of benefit from outpatient speech therapy services for dysphagia to address chin tuck and oral hygiene specifically. -Aspiration Precautions Alt Solids & Liquid,Fully Alert and Upright,Single Bites/Small Sips/Slow Rate, NO Straws -Reflux Precautions Alt Solids & Liquids,HOB 30 Degrees ALL Time,Upright w Meals +30 min Total Time Total Time Spent Total Time Spent (In Minutes): I personally spent: 45 minutes today on clinical care activities including: reviewing chart notes and vital signs reviewing labs discussion with client care consultant examining and counseling the patient writing orders, discharge orders and instructions documentation Coding Level of Care Code 83840 INP/OBS DISCH >30 MIN Diagnoses Acute on chronic systolic heart failure I50.23 PNA (pneumonia) J18.9 PAF (paroxysmal atrial fibrillation) I48.0 Dysphagia R13.10 Odynophagia R13.10 Cardiomyopathy I42.9 Elevated troponin R79.89 BPH with obstruction/lower urinary tract symptoms N40.1; N13.8 HTN (hypertension) I10 Chronic kidney disease, stage IV (severe) N18.4
== END 2024-04-12 12:17 | DRG 291 ==
LOC: ED 14:15 → 2N 16:24 → SUATTDRO 16:24 → 2N 18:56 → 3N 04-10 14:48